=== PATIENT | female | born 1955 | race Caucasian/White ===

== ENCOUNTER → 2018-12-10 | Outpatient (CLI) | payer BC ==
--- NOTE | 2018-12-10 08:48 | Diagnostic Imaging Report ---
INDICATION: Epigastric pain. The liver is normal in size at 15.8 cm. No discrete liver mass is detected. The portal vein is patent and shows normal directional flow. The gallbladder is surgically absent. The extrahepatic bile duct is 8 mm. Visualized pancreas is unremarkable. Spleen is normal in size at 10.2 cm. Aorta is nonaneurysmal. IVC is patent. The kidneys demonstrate normal cortical thickness and echogenicity. No calculi or hydronephrosis is seen. There is no ascites. IMPRESSION: Status post cholecystectomy. No acute feature is detected. Dictated by: Dictated on workstation # [id number]
--- NOTE | 2018-12-13 10:29 | Diagnostic Imaging Report ---
INDICATION: Routine screening. COMPARISON: 12/05/2016. TECHNIQUE: 2D and 3D bilateral screening mammography was performed with CAD. FINDINGS: Both breasts remain heterogeneously dense, limiting the sensitivity of mammography. A cluster of microcalcifications in the upper and slightly outer right breast at posterior depth appears to be increased in number since the prior exam. There is a marker clip just medial and inferior to the cluster from prior biopsy. No mass is identified. Calcifications in the left breast are stable. The axillae are unremarkable. IMPRESSION: Increasing calcifications in the upper outer right breast at posterior depth. Additional views are recommended. ACR BI-RADS Category 0: Incomplete. (Needs additional imaging evaluation). Result letter will be mailed to the patient. Note: At least 10% of breast cancer is not imaged by mammography. Dictated by: Dictated on workstation # [id number]
== END ==
LOC: RAD 07:45
PROVIDERS: ATTEND Physician Assistant Medical
DX: Z12.31 Encounter for screening mammogram for malignant neoplasm of breast (principal); R92.1 Mammographic calcification found on diagnostic imaging of breast; R10.13 Epigastric pain; Z90.49 Acquired absence of other specified parts of digestive tract
CPT/HCPCS: 76700; 77067

== ENCOUNTER → 2019-03-31 | Outpatient (CLI) | payer BC ==
--- NOTE | 2019-03-31 14:19 | Diagnostic Imaging Report ---
Nneka Giron EXAMINATION: Unilateral right diagnostic mammogram on 03/31/2019. INDICATION: Right breast calcifications. Patient presents for additional views. Correlation is made with recent screening study from 12/10/2018. Unilateral right 2-D and 3-D diagnostic mammography was performed including magnification CC and ML views as well as conventional 90 degree lateral view. Right breast remains heterogeneously dense. Calcifications in the upper right breast posterior depth just lateral to previously noted biopsy clip do show some increase in number when compared with prior mammograms. These are indeterminate. There is some pleomorphism present. No mass is detected. IMPRESSION: BI-RADS 4 Overall increase in number of clustered microcalcifications in the upper and slightly outer right breast posterior depth. These are indeterminate. Tissue sampling is recommended. These would be amenable to stereotactic approach. After discussion with the patient, patient decided to not undergo biopsy at this time due to insurance reasons. Patient states that she will come back in 6 months for a six-month follow-up. ACR BI-RADS Category 4: Suspicious abnormality. Result letter will be mailed to the patient. Note: At least 10% of breast cancer is not imaged by mammography. Report was called to Alicia/correctional program officer Dr. Kat by abby at 2:00 p.m. Dictated by: Dictated on workstation # [id number]
== END ==
LOC: RAD 12:46
PROVIDERS: ATTEND Student in an Organized Health Care Education/Training Program
DX: R92.0 Mammographic microcalcification found on diagnostic imaging of breast (principal)

== ENCOUNTER → 2019-06-29 | Outpatient (CLI) | payer BC ==
[~2019-06-29] VITALS: Ht 170.2 cm; Wt 68.2 kg
[~2019-06-29] MED LIST: LIDOCAINE 1% INJ 20 ML 20 ML VIAL INJ ONE; LIDOCAINE 1% INJ 20 ML 20 ML VIAL ONE
--- NOTE | 2019-06-29 12:04 | Diagnostic Imaging Report ---
EXAMINATION: Stereotactic biopsy right breast. INDICATION: Abnormal mammogram. PERSONAL HISTORY: The diagnostic mammogram performed on 03/31/2019 noted an increase in the cluster of microcalcifications in the superior slightly outer aspect of the right breast at posterior depth. A stereotactic biopsy was recommended to exclude malignancy. TECHNIQUE: Following aseptic preparation of the skin and administration of local anesthesia, the area of concern was biopsied using a stereotactic device. Multiple samples were obtained. The specimen radiograph does show that several of the calcifications were included in the biopsy site. Subsequently, a stereotactic clip was inserted into the biopsy site. The post procedure images performed at a separate workstation show that the clip is in close proximity to the area of concern on the CC view. The tip does appear to be 1.5 cm cephalad to the biopsy site on the MLO view however. There are still a few calcifications present in this region. The patient tolerated the procedure well and was dismissed in good condition. IMPRESSION: There has been a successful stereotactic biopsy of the right breast. A final pathology report is pending. Dictated by: Dictated on workstation # [id number]
== END ==
LOC: RAD 09:51
PROVIDERS: ATTEND Student in an Organized Health Care Education/Training Program
DX: R92.0 Mammographic microcalcification found on diagnostic imaging of breast (principal)
CPT/HCPCS: 19081

== ENCOUNTER → 2019-10-11 | Outpatient (CLI) | payer BC ==
[~2019-10-11] VITALS: Ht 170 cm; Wt 65.0 kg
[~2019-10-11] MED LIST changes: +CATHETER FLUSH 10 ML SYR IV PRN; -LIDOCAINE 1% INJ 20 ML 20 ML VIAL INJ ONE; -LIDOCAINE 1% INJ 20 ML 20 ML VIAL ONE; +REGADENOSON 0.4 MG/5 ML SYR (LEXISCAN) IV ONE
--- NOTE | 2019-10-11 12:04 | STRESS TEST ---
DATE OF SERVICE: 10/11/2019 RESTING AND POST REGADENOSON TECHNETIUM-99M TETROFOSMIN SPECT CT IMAGING PRIMARY PHYSICIAN: Dr. Casillas. CLINICAL DIAGNOSIS: Chest discomfort. Baseline images were carried out after injection of 10.74 mCi of technetium-99m Tetrofosmin. This was followed by 0.4 mg Regadenoson and 33 mCi of technetium-99m Tetrofosmin for stress imaging. The electrocardiogram showed sinus rhythm at baseline. Intermittent left bundle branch block was seen, which appears to be rate related. The patient did not report any symptoms. Review of images at rest and following stress does not indicate any significant perfusion defects consistent with myocardial ischemia or infarction. Gated images show normal global left ventricular systolic function with normal regional wall motion. Left ventricular ejection fraction is calculated to be 70%. Left ventricular end diastolic volume is 50 mL. TID is absent (1.09). CONCLUSIONS: 1. No evidence of significant myocardial ischemia or infarction on this study. 2. Normal regional wall motion. 3. Normal global left ventricular systolic function with a calculated ejection fraction at 70%. 4. Rate-related left bundle branch block. Job ID: [id number] DocumentID: [id number] Dictated Date: 10/11/2019 11:15:14 Chucking And Boring Machine Operator Date: 10/11/2019 12:03:34 Dictated By: KERI CASILLAS MD, MA, FACP, FACC,
== END ==
LOC: CARD 08:25
PROVIDERS: ATTEND Internal Medicine Cardiovascular Disease
DX: I65.23 Occlusion and stenosis of bilateral carotid arteries (principal); R09.89 Other specified symptoms and signs involving the circulatory and respiratory systems; R53.83 Other fatigue
CPT/HCPCS: 78452; 93017; 93306; A9502

== ENCOUNTER → 2020-05-30 | Outpatient (CLI) | payer BC, MEDICARE ==
--- NOTE | 2020-05-31 12:59 | Diagnostic Imaging Report ---
INDICATION: Routine screening. Comparison is made prior mammogram from 12/10/2018 and 12/05/2016. 2-D and 3-D bilateral screening mammography was performed with CAD. Both breasts are heterogeneously dense, limiting the sensitivity of mammography. There are benign calcifications of both breast. Postbiopsy changes in the right breast are again noted. No mass or malignant appearing microcalcifications are seen. Axillae are unremarkable. IMPRESSION: BI-RADS Category 2 No mammographic features suspicious for malignancy are identified. ACR BI-RADS Category 2: Benign findings. Result letter will be mailed to the patient. Note: At least 10% of breast cancer is not imaged by mammography. Dictated by: Dictated on workstation # [id number]
== END ==
LOC: RAD 14:50
PROVIDERS: ATTEND Student in an Organized Health Care Education/Training Program
DX: Z12.31 Encounter for screening mammogram for malignant neoplasm of breast (principal)
CPT/HCPCS: 77063; 77067

== ENCOUNTER 2020-12-13 05:29 | Outpatient (RCR) | payer MEDICARE ==
[~2020-12-13] VITALS: Ht 170.2 cm; Wt 71.0 kg
[~2020-12-13 05:29] MED LIST changes: +ACET-93 PO; +ASPI-999 PO; -CATHETER FLUSH 10 ML SYR IV PRN; +CETI10TA49 PO; +DICL75TA2 PO; +DIPH25CA79 PO; +LEVO75CA5 PO; +MENT118G TP; +MONT10TA32 PO; +OMEP20CA18 PO; -REGADENOSON 0.4 MG/5 ML SYR (LEXISCAN) IV ONE; +TRIA10.8 NS
== END 2020-12-13 10:48 | disposition home or self-care (01) ==
LOC: PREOP 05:29
PROVIDERS: ATTEND Surgery
DX: Z01.812 Encounter for preprocedural laboratory examination (principal); Z12.11 Encounter for screening for malignant neoplasm of colon; K44.9 Diaphragmatic hernia without obstruction or gangrene; R12 Heartburn; Z20.822 Contact with and (suspected) exposure to COVID-19
CPT/HCPCS: 87635

== ENCOUNTER → 2020-12-17 | Day surgery (SDC) | payer MEDICARE, OTHER ==
[2020-12-17] VITALS (8 sets, daily range): BP systolic 130–146; BP diastolic 63–78
[~2020-12-17] VITALS: Ht 170.2 cm; Wt 71.0 kg
[~2020-12-17] MED LIST changes: +HURRICAINE EXT TUBE (BENZOCAINE) XX PRN; +LACTATED RINGERS 1,000 ML IV ONE; +LACTATED RINGERS 1,000 ML IV STA; +MIDAZOLAM 2 MG/2 ML (VERSED) VIAL ONE; +PROPOFOL INJECTION 0 ML IV ONE; +PROPOFOL INJECTION 50 ML IV ONE
--- OUTSIDE RECORDS SUMMARY | 2020-12-17 07:33 | XMS REPORT | CCD ---
Author Author Slime Hayes Organization [facility] Address [address] [place] [address] Phone Care Team Providers Care Maker Up Folding Name Role Phone PP Unavailable CCM Unavailable Summary Purpose Interface Exchange Insurance Providers Payer name Policy type / Coverage type Covered constitution party ID Effective Begin Date Effective End Date WPS MEDICARE PART B [place] Medicare Part B [id number] Unknown [employer] Medicare Part B [id number] 2021 [id number] Unknown Family history Brother Diagnosis Age At Onset Diabetes mellitus Type 2 Unknown Cardiovascular disease Unknown Cancer Unknown Sister Diagnosis Age At Onset Diabetes mellitus Type 2 Unknown Cardiovascular disease Unknown Father Diagnosis Age At Onset Cancer Unknown Cardiovascular disease Unknown Mother Diagnosis Age At Onset Breast cancer Unknown Cardiovascular disease Unknown Social History Social History Element Codes Description Effective Dates Marital status Unknown 11/01/[address]: 200799792 Never smoker 11/01/2020 Frequency of drinks SNOMED CT: 018928545 Drinks rarely 021 Allergies, Adverse Reactions, Alerts Substance Reaction Codes Entered Date Inactivated Date Status * NO KNOWN DRUG ALLERGIES Unknown 11/01/2020 No Inactiv e Date Active _ Unknown 11/01/2020 No Inactive Date Active Problems Condition Codes Effective Dates Condition Status Depression ICD-10: F32.9 ICD-9: 311 11/14/2020 Active Dyspnea ICD-10: R06.00 ICD-9: 786.09 11/14/2020 Active Encounter for general adult medical examination withou t abnormal findings ICD- 10: Z00.00 ICD-9: V70.0 11/14/2020 Active Gastroesophageal reflux disease, unspecified whether e sophagitis present ICD-10: K21.9 ICD-9: 530.81 11/01/2020 Active Hypothyroidism, unspecified type ICD-10: E03.9 ICD-9: 244.9 11/01/2020 Active Acute upper respiratory infection, unspecified ICD-10: J06.9 ICD-9: 465.9 11/07/2020 Active Lab test negative for COVID-19 virus ICD-10: Z20.822 ICD-9: V01.79 11/07/2020 Active Arthritis of both hands ICD-10: M19.041 ICD-9: 716.94 11/01/2020 Active Encounter to establish care with new doctor ICD-10: Z7 6.89 ICD-9: V65.8 11/01/2020 Active Primary osteoarthritis, left hand ICD-10: M19.042 11/01/2020 Active Seasonal allergic rhinitis, unspecified trigger ICD-10 : J30.2 ICD-9: 477.9 11/01/2020 Active Medications Medication Codes Instructions Start Date Stop Date Status Fill Instructions levothyroxine 75 mcg tablet RxNorm: 889162 Take 1 Tablet(s) Oral QA M 11/14/2020 02/11/2021 Active Effexor XR 75 mg capsule,extended release RxNorm: 185489 Take 1 Capsule(s) Oral QAM 11/14/2020 01/12/2021 Active levothyroxine 100 mcg tablet RxNorm: 721760 Take 1 Tablet(s) Oral Q D 11/14/2020 11/14/2020 Inactive promethazine-DM 6.25 mg-15 mg/5 mL oral syrup RxNorm: 418909 Take 5 Milliliter(s) Oral Q4H as needed, not to exceed 30 mL in 24 hours as needed for cough 11/07/2020 11/11/2020 Inactive prednisone 20 mg tablet RxNorm: 179336 Take 2 Tablet(s) Oral QD 11/11/2020 Inactive omeprazole 20 mg tablet,delayed release RxNorm: 278049 1 Tablet (s) Oral QD 11/01/2020 01/29/2021 Active Singulair 10 mg tablet RxNorm: 202479 1 Tablet(s) Oral QD 11/01/2020 01/29/2021 Active aspirin 81 mg tablet,delayed release RxNorm: 191033 1 Tablet(s) Oral QD 11/01/2020 No Stop Date Active Benadryl 25 mg capsule RxNorm: 4100205 1 Capsule(s) Oral two jessie es a day 11/01/2020 No Stop Date Active acetaminophen 500 mg capsule RxNorm: 487215 2 Capsule(s) Oral QD No Stop Date Active Singulair 10 mg tablet RxNorm: 693577 1 Tablet(s) Oral QD 11/01/2020 10/31/2020 Inactive diclofenac sodium 75 mg tablet,delayed release RxNorm: 79370 6 Take 1 Tablet(s) Oral two times a day 11/01/2020 11/13/2020 Inactive omeprazole 20 mg tablet,delayed release RxNorm: 808202 1 Tablet (s) Oral QD 11/01/2020 10/31/2020 Inactive Nasacort nasal RxNorm: 054747 nasal 11/01/2020 Active levothyroxine 100 mcg capsule RxNorm: 295477 oral 11/14/2020 Inactive Medication Administered No Medication Administered data Immunizations No Immunization data Results No Results data Procedures Procedure Codes Date PPPS, subseq visit CPT-4: G0439 11/14/2020 SARSCOV & INF VIR A&B AG IA CPT-4: 70013 11/07/2020 Vital Signs Date Vital 11/14/2020 Blood Pressure 1: 124/78 Code: 8480-6 BMI: 23.5 Code: 74671-7 Heart Rate 1: 80 bpm Height: 5'7" Code: 8302-2 Respiratory Rate: 20 bpm SpO2: 97% Temperature: 36.7 (C) / 98.1 (F) Weight: 150 lbs Code: 07397-5 11/07/2020 Heart Rate 1: 78 bpm Respiratory Rate: 18 bpm SpO2: 99 % Temperature: 36.6 (C) / 97.8 (F) 11/01/2020 Blood Pressure 1: 134/72 Code: 8480-6 BMI: 24.1 Code: 52099-8 Heart Rate 1: 69 bpm Height: 5'7" Code: 8302-2 Respiratory Rate: 16 bpm SpO2: 97% Temperature: 37.0 (C) / 98.6 (F) Weight: 154 lbs Code: 45890-4 Functional Status No Functional Status data Reason For Visit Reason For Visit Effective Dates Notes well woman exam (65+ years) 11/14/2020 Medicare Wel lness diarrhea 11/07/2020 ~generic 11/01/2020 [facility] Encounters Encounter Performer Location Codes Date (24277) OFFICE/OUTPATIENT VISIT EST Diagnosis: Lab test negative for COVID-19 virus[ICD10: Z20.822] Diagnosis: Acute upper respiratory infection, unspecified[ICD10: J06.9] Barbara Hayes [facility] CPT-4: 93254 11/07/2020 (10792) OFFICE/OUTPATIENT VISIT NEW Diagnosis: Gastroesophageal reflux disease, unspecified whether esophagitis present[ICD10: K21.9] Diagnosis: Seasonal allergic rhinitis, unspecified trigger[ICD10: J30.2] Diagnosis: Primary osteoarthritis, left hand[ICD10: M19.042] Diagnosis: Arthritis of both hands[ICD10: M19.041] Diagnosis: Hypothyroidism, unspecified type[ICD10: E03.9] Diagnosis: Encounter to establish care with new doctor[ICD10: Z76.89] Barbara Hayes [facility] CPT-4: 18532 11/01/2020 Plan of Care Planned Activity Notes Codes Status Date Visit Diagnosis Plan: Hypothyroidism, unspecified type Discussion: Decrease levothyroxine dose to 75mcg po daily and repeat TSH and free T4 in 2mos Discussed proper administration of levothyroxine--taking first thing in morning on a empty stomach with large glass of water and no other meds or nothing to eat or drink for at least 1 hour ICD-9 : 244.9 ICD-10 : E03.9 11/14/2020 Visit Diagnosis Plan: Dyspnea Discussion: Discussed PF T Had cardiac workup last year Will proceed with scopes first as above and discuss the PFT at fw in 2mos ICD-9 : 786.09 ICD-10 : R06.00 11/14/2020 Visit Diagnosis Plan: Encounter for gene [facility] adult medical examination without abnormal findings Discussion: Mediterranean diet Combinati on of cardio and weight bearing exercise Lab discussed Had Mammogram Update Colonoscopy Refuses flu, pneumonia and COVID vaccines ICD-9 : V70.0 ICD-10 : Z00.00 11/14/2020 Visit Diagnosis Plan: Depression Discussion: Resume ef fexor XR 75mg po daily Fwup 2mos ICD-9 : 311 ICD-10 : F32.9 11/14/2020 Visit Diagnosis Plan: Gastroesophageal r eflux disease, unspecified whether esophagitis present Discussion: Continue omeprazole Update E GD ICD-9 : 530.81 ICD-10 : K21.9 11/14/2020 Appointment: Gustavo [facility] [phone] [facility] patient called to change her appt but wh marcela i informed he it was with doctor she decided to keep it Annual Well Visit 11/14/2020 Care Plan: Referral Order SNOMED-CT : 30 [id number] Pending 11/14/2020 Visit Diagnosis Plan: Acute upper respiratory infectio n, unspecified Discussion: Promethazine-DM for cough, will give prednisone for inflammation/drainage. Drink plenty of water. F/U for any worsening of symptoms or concerns. ICD-9 : 465.9 ICD-10 : J06.9 11/07/2020 Visit Diagnosis Plan: Lab test negative for COVID-19 v irus Discussion: covid negative ICD-9 : V01.79 ICD-10 : Z20.822 11/07/2020 [facility]ment[facility] [phone] [facility] [facility] 11/07/2020 Patient Education: Patient Medication Summary Completed 11/07/2020 Patient Education: promethazine-DM- Opt[employer] Coupon [id number] https://www.[employer].com/samplemd/resources/getResource/61/20ve1a01-92o4-8cl5-p4 Completed 11/07/2020 Patient Education: prednisone- OptimizeRX Coupon [phone] https://www.[employer].com/samplemd/resources/getResource/61/09ep93u9-0v34-49z3-6j Completed 11/07/2020 Visit Diagnosis Plan: Encounter to establish care with new doctor Discussion: Will make F/U for fasting labs and annual. ICD-9 : V65.8 ICD-10 : Z76.89 11/01/2020 Visit Diagnosis Plan: Hypothyroidism, unspecified type Discussion: Will update lab ICD-9 : 244.9 ICD-10 : E03.9 11/01/2020 Visit Diagnosis Plan: Gastroesophageal r eflux disease, unspecified whether esophagitis present Discussion: stable on omeprazole, refill ed ICD-9 : 530.81 ICD-10 : K21.9 11/01/2020 Visit Diagnosis Plan: Seasonal allergic rhinitis, unsp ecified trigger Discussion: Singular refilled ICD-9 : 477.9 ICD-10 : J30.2 11/01/2020 Visit Diagnosis Plan: Arthritis of both hands Discussi on: Start diclofenac, hand exercises/stretches ICD-9 : 716.94 ICD-10 : M19.041 11/01/2020 Appointment: Barbara Hayes WPtel: [phone] [facility] NEW PATIENT 11/01/2020 Patient Education: Patient Medication Summary Completed 11/01/2020 Patient Education: Singulair- OptimizeRX Coupon [phone] https://www.[employer]/samplemd/resources/getResource/61/57r79s19-savn-6t49-g5 Completed 11/01/2020 Patient Education: diclofenac sodium- OptimizeRX Coupo n [id number] https://www.[employer]/samplemd/resources/getResource/61/1875364t-v123-73l2-88 Completed 11/01/2020 Referral: David Radford WPtel: [address] [place], [place] [email or web address] Referral Appointment Requested Instructions No Instructions Medical Equipment No Medical Equipment data Health Concerns Section Health Concerns data not found Goals Section Goals data not found Interventions Section Interventions data not found Health Status Evaluations/Outcomes Section Health Status Evaluations/Outcomes data not found Advance Directives No Advance Directive data
--- OUTSIDE RECORDS SUMMARY | 2020-12-17 07:33 | XMS REPORT | CCD ---
Author Author Slime Hayes Organization [facility] Address [address] [place] [address] Phone Care Team Providers Care Golf Cart Maker Name Role Phone PP Unavailable CCM Unavailable Summary Purpose Interface Exchange Insurance Providers Payer name Policy type / Coverage type Covered alliance party ID Effective Begin Date Effective End Date WPS MEDICARE PART B [place] Medicare Part B [id number] 2020 Unknown Old [employer] Medicare Part B [id number] 2021 [id number] Unknown Family history Brother Diagnosis [...] status Unknown 11/01/[address]: 492989025 Never smoker 11/01/2020 Frequency of drinks SNOMED CT: 494850648 Drinks rarely 021 Allergies, Adverse Reactions, Alerts [...] Fill Instructions levothyroxine 75 mcg tablet RxNorm: 604757 Take 1 Tablet(s) Oral QA M 11/14/2020 02/11/2021 Active levothyroxine 100 mcg tablet RxNorm: 118045 Take 1 Tablet(s) Oral Q D 11/14/2020 11/14/2020 Inactive Effexor XR 75 mg capsule,extended release RxNorm: 744929 Take 1 Capsule(s) Oral QAM 11/14/2020 01/12/2021 Active promethazine-DM 6.25 mg-15 mg/5 mL oral syrup RxNorm: 711338 Take 5 Milliliter(s) Oral Q4H as needed, not to exceed 30 mL in 24 hours as needed for cough 11/07/2020 11/11/2020 Inactive prednisone 20 mg tablet RxNorm: 031923 Take 2 Tablet(s) Oral QD 11/11/2020 Inactive omeprazole 20 mg tablet,delayed release RxNorm: 062857 1 Tablet (s) Oral QD 11/01/2020 01/29/2021 Active Singulair 10 mg tablet RxNorm: 946666 1 Tablet(s) Oral QD 11/01/2020 01/29/2021 Active aspirin 81 mg tablet,delayed release RxNorm: 464620 1 Tablet(s) Oral QD 11/01/2020 No Stop Date Active Benadryl 25 mg capsule RxNorm: 2417022 1 Capsule(s) Oral two jessie es a day 11/01/2020 No Stop Date Active acetaminophen 500 mg capsule RxNorm: 285964 2 Capsule(s) Oral QD No Stop Date Active Singulair 10 mg tablet RxNorm: 420810 1 Tablet(s) Oral QD 11/01/2020 10/31/2020 Inactive diclofenac sodium 75 mg tablet,delayed release RxNorm: 12628 6 Take 1 Tablet(s) Oral two times a day 11/01/2020 11/13/2020 Inactive omeprazole 20 mg tablet,delayed release RxNorm: 754969 1 Tablet (s) Oral QD 11/01/2020 10/31/2020 Inactive Nasacort nasal RxNorm: 660342 nasal 11/01/2020 Active levothyroxine 100 mcg capsule RxNorm: 845476 oral 11/14/2020 Inactive Medication Administered No Medication Administered data Immunizations No Immunization data Results No Results data Procedures Procedure Codes Date PPPS, subseq visit CPT-4: G0439 11/14/2020 SARSCOV & INF VIR A&B AG IA CPT-4: 64135 11/07/2020 Vital Signs Date Vital 11/14/2020 Blood Pressure 1: 124/78 Code: 8480-6 BMI: 23.5 Code: 06315-5 Heart Rate 1: 80 bpm Height: 5'7" Code: 8302-2 Respiratory Rate: 20 bpm SpO2: 97% Temperature: 36.7 (C) / 98.1 (F) Weight: 150 lbs Code: 36190-7 11/07/2020 Heart Rate 1: 78 bpm Respiratory Rate: 18 bpm SpO2: 99 % Temperature: 36.6 (C) / 97.8 (F) 11/01/2020 Blood Pressure 1: 134/72 Code: 8480-6 BMI: 24.1 Code: 08497-0 Heart Rate 1: 69 bpm Height: 5'7" Code: 8302-2 Respiratory Rate: 16 bpm SpO2: 97% Temperature: 37.0 (C) / 98.6 (F) Weight: 154 lbs Code: 45279-6 Functional Status No Functional Status data Reason For Visit Reason For Visit Effective Dates Notes well woman exam (65+ years) 11/14/2020 Medicare Wel lness diarrhea 11/07/2020 ~generic 11/01/2020 new patient yudi [facility] Encounters Encounter Performer Location Codes Date () OFFICE/OUTPATIENT VISIT EST Diagnosis: Lab test negative for COVID-19 virus[ICD10: Z20.822] Diagnosis: Acute upper respiratory infection, unspecified[ICD10: J06.9] Barbara Hayes [facility] CPT-4: 76789 11/07/2020 (36501) OFFICE/OUTPATIENT VISIT NEW Diagnosis: Gastroesophageal reflux disease, unspecified whether esophagitis present[ICD10: K21.9] Diagnosis: Seasonal allergic rhinitis, unspecified trigger[ICD10: J30.2] Diagnosis: Primary osteoarthritis, left hand[ICD10: M19.042] Diagnosis: Arthritis of both hands[ICD10: M19.041] Diagnosis: Hypothyroidism, unspecified type[ICD10: E03.9] Diagnosis: Encounter to establish care with new doctor[ICD10: Z76.89] Barbara Hayes [facility] [employer] CPT-4: 74549 11/01/2020 Plan of Care Planned Activity Notes [...] 11/14/2020 Visit Diagnosis Plan: Encounter for gene ral adult medical examination without abnormal findings Discussion: [...] ICD-9 : 530.81 ICD-10 : K21.9 11/14/2020 Care Plan: Referral Order SNOMED-CT : 30 [id number] Pending 11/14/2020 Visit Diagnosis Plan: Acute upper respiratory infectio n, unspecified Discussion: Promethazine-DM for cough, will give prednisone for inflammation/drainage. Drink plenty of water. F/U for any worsening of symptoms or concerns. ICD-9 : 465.9 ICD-10 : J06.9 11/07/2020 Visit Diagnosis Plan: Lab test negative for COVID-19 v irus Discussion: covid negative ICD-9 : V01.79 ICD-10 : Z20.822 11/07/2020 Appointment: Barbara [facility] [phone] [facility] [facility] 11/07/2020 Patient Education: Patient Medication Summary Completed 11/07/2020 Patient Education: promethazine-DM- [employer] Coupon [id number] https://www.[employer]/samplemd/resources/getResource/61/57xi4h85-94q8-4ze0-r8 Completed 11/07/2020 Patient Education: prednisone- Opt[employer]RX Coupon [id number] https://www.[employer]/samplemd/resources/getResource/61/66mb41d8-4f85-22r4-5e Completed 11/07/2020 Visit Diagnosis Plan: Encounter to [...] : 716.94 ICD-10 : M19.041 11/01/2020 Appointment: SowmyakelBarbara weber WPtel: [phone] NEW PATIENT 11/01/2020 Patient Education: Patient Medication Summary Completed 11/01/2020 Patient Education: Singulair- OptimizeRX Coupon [phone] https://www.[employer]/sampleBuddyBounce/resources/getResource/61/70o54b59-gbua-3z15-r5 Completed 11/01/2020 Patient Education: diclofenac sodium- Opt[employer]RX Coupo n [id number] https://www.[employer]/samplemd/resources/getResource/61/7149297m-z053-90w4-94 Completed 11/01/2020 Referral: David Radford WPtel: [address] [place], [place] [address] Referral Appointment Requested Instructions No Instructions Medical Equipment No Medical Equipment data Health Concerns Section Health Concerns data not found Goals Section Goals data not found Interventions Section Interventions data not found Health Status Evaluations/Outcomes Section Health Status Evaluations/Outcomes data not found Advance Directives No Advance Directive data
--- OUTSIDE RECORDS SUMMARY | 2020-12-17 07:33 | XMS REPORT | CCD ---
Author Author Slime Hayes Organization [facility] Address [address] [place] [address] Phone Care Team Providers Care Building Surveyor Name Role Phone PP Unavailable CCM Unavailable Summary Purpose Interface Exchange Insurance Providers Payer name Policy type / Coverage type Covered green party ID Effective Begin Date Effective End Date WPS MEDIC[place] Medicare Part B [id number] 2020 Unknown Old [employer] Medicare Part B [id number] 2021 [id number] Unknown Family history Brother Diagnosis [...] status Unknown 11/01/[address]: 004278841 Never smoker 11/01/2020 Frequency of drinks SNOMED CT: 717949152 Drinks rarely 021 Allergies, Adverse Reactions, Alerts Substance Reaction Codes Entered Date Inactivated Date Status * NO KNOWN DRUG ALLERGIES Unknown 11/01/2020 No Inactiv e Date Active _ Unknown 11/01/2020 No Inactive Date Active Problems Condition Codes Effective Dates Condition Status Acute upper respiratory infection, unspecified ICD-10: J06.9 ICD-9: 465.9 11/07/2020 Active Lab test negative for COVID-19 virus ICD-10: Z20.822 ICD-9: V01.79 11/07/2020 Active Arthritis of both hands ICD-10: M19.041 ICD-9: 716.94 11/01/2020 Active Encounter to establish care with new doctor ICD-10: Z7 6.89 ICD-9: V65.8 11/01/2020 Active Gastroesophageal reflux disease, unspecified whether e sophagitis present ICD-10: K21.9 ICD-9: 530.81 11/01/2020 Active Hypothyroidism, unspecified type ICD-10: E03.9 ICD-9: 244.9 11/01/2020 Active Primary osteoarthritis, left hand ICD-10: M19.042 11/01/2020 Active Seasonal allergic rhinitis, unspecified trigger ICD-10 : J30.2 ICD-9: 477.9 11/01/2020 Active Medications Medication Codes Instructions Start Date Stop Date Status Fill Instructions promethazine-DM 6.25 mg-15 mg/5 mL oral syrup RxNorm: 945026 Take 5 Milliliter(s) Oral Q4H as needed, not to exceed 30 mL in 24 hours as needed for cough 11/07/2020 11/11/2020 Active prednisone 20 mg tablet RxNorm: 628032 Take 2 Tablet(s) Oral QD 11/11/2020 Active omeprazole 20 mg tablet,delayed release RxNorm: 142212 1 Tablet (s) Oral QD 11/01/2020 01/29/2021 Active diclofenac sodium 75 mg tablet,delayed release RxNorm: 54017 6 Take 1 Tablet(s) Oral two times a day 11/01/2020 01/29/2021 Active Singulair 10 mg tablet RxNorm: 429966 1 Tablet(s) Oral QD 11/01/2020 01/29/2021 Active aspirin 81 mg tablet,delayed release RxNorm: 752760 1 Tablet(s) Oral QD 11/01/2020 No Stop Date Active Benadryl 25 mg capsule RxNorm: 2620804 1 Capsule(s) Oral two jessie es a day 11/01/2020 No Stop Date Active acetaminophen 500 mg capsule RxNorm: 274767 2 Capsule(s) Oral QD No Stop Date Active Singulair 10 mg tablet RxNorm: 910128 1 Tablet(s) Oral QD 11/01/2020 10/31/2020 Inactive omeprazole 20 mg tablet,delayed release RxNorm: 382521 1 Tablet (s) Oral QD 11/01/2020 10/31/2020 Inactive levothyroxine 100 mcg capsule RxNorm: 106880 oral 11/01/2020 Active Nasacort nasal RxNorm: 073691 nasal 11/01/2020 Active Medication Administered No Medication Administered data Immunizations No Immunization data Results No Results data Procedures Procedure Codes Date SARSCOV & INF VIR A&B AG IA CPT-4: 38474 11/07/2020 Vital Signs Date Vital 11/07/2020 Heart Rate 1: 78 bpm Respiratory Rate: 18 bpm SpO2: 99 % Temperature: 36.6 (C) / 97.8 (F) 11/01/2020 Blood Pressure 1: 134/72 Code: 8480-6 BMI: 24.1 Code: 12445-7 Heart Rate 1: 69 bpm Height: 5'7" Code: 8302-2 Respiratory Rate: 16 bpm SpO2: 97% Temperature: 37.0 (C) / 98.6 (F) Weight: 154 lbs Code: 83118-7 Functional Status No Functional Status data Reason For Visit Reason For Visit Effective Dates Notes diarrhea 11/07/2020 ~generic 11/01/[address] [facility] Encounters Encounter Performer Location Codes Date () OFFICE/OUTPATIENT VISIT EST Diagnosis: Lab test negative for COVID-19 virus[ICD10: Z20.822] Diagnosis: Acute upper respiratory infection, unspecified[ICD10: J06.9] Barbara CHEN [employer] CPT-4: 49409 11/07/2020 ([id number]) OFFICE/OUTPATIENT VISIT NEW Diagnosis: Gastroesophageal reflux disease, unspecified whether esophagitis present[ICD10: K21.9] Diagnosis: Seasonal allergic rhinitis, unspecified trigger[ICD10: J30.2] Diagnosis: Primary osteoarthritis, left hand[ICD10: M19.042] Diagnosis: Arthritis of both hands[ICD10: M19.041] Diagnosis: Hypothyroidism, unspecified type[ICD10: E03.9] Diagnosis: Encounter to establish care with new doctor[ICD10: Z76.89] Barbara BESS[employer] CPT-4: 08620 11/01/2020 Plan of Care Planned Activity Notes Codes Status Date Visit Diagnosis Plan: Acute upper respiratory infectio n, unspecified Discussion: Promethazine-DM for cough, will give prednisone for inflammation/drainage. Drink plenty of water. F/U for any worsening of symptoms or concerns. ICD-9 : 465.9 ICD-10 : J06.9 11/07/2020 Visit Diagnosis Plan: Lab test negative for COVID-19 v irus Discussion: covid negative ICD-9 : V01.79 ICD-10 : Z20.822 11/07/2020 Patient Education: Patient Medication Summary Completed 11/07/2020 Patient Education: promethazine-DM- OptimizeRX Coupon [id number] https://www.StockUp/sampleDigitalAdvisor/resources/getResource/61/97dd2a88-04d6-1zi0-q1 Completed 11/07/2020 Patient Education: prednisone- OptimizeRX Coupon [id number] https://www.StockUp/[employer]/resources/getResource/61/23fp39k0-7q14-26p8-1y Completed 11/07/2020 Visit Diagnosis Plan: Encounter to [...] M19.041 11/01/2020 Appointment: Barbara Hayes [facility]Ptel[facility] [phone] [facility] [facility] 11/01/2020 Patient Education: Patient Medication Summary Completed 11/01/2020 Patient Education: Singulair- OptimizeRX Coupon [id number] https://www.StockUp/sampleDigitalAdvisor/resources/getResource/61/77t84s18-zsfl-5q81-f9 Completed 11/01/2020 Patient Education: diclofenac sodium- OptimizeRX Ricardo n [id number] https://www.[employer].com/samplemd/resources/getResource/61/4922474u-r925-36t7-80 Completed 11/01/2020 Instructions No Instructions Medical Equipment No Medical Equipment data Health Concerns Section Health Concerns data not found Goals Section Goals data not found Interventions Section Interventions data not found Health Status Evaluations/Outcomes Section Health Status Evaluations/Outcomes data not found Advance Directives No Advance Directive data
--- OUTSIDE RECORDS SUMMARY | 2020-12-17 07:33 | XMS REPORT | CCD ---
Author Author Slime Hayes Organization [facility] SalgadoCh[facility] Address [address] [place] [address] Phone Care Team Providers Care Breed To Wean Production Technician Name Role Phone PP Unavailable CCM Unavailable Summary Purpose Interface Exchange Insurance Providers Payer name Policy type / Coverage type Covered constitution party ID Effective Begin Date Effective End Date WPS MEDICARE [place] B [place] Medicare Part B [id number] 2020 Unknown Old [employer] Medicare Part B [id number] 2021 [id number] Unknown Family history Brother Diagnosis [...] status Unknown 11/01/[address]: 268281583 Never smoker 11/01/2020 Frequency of drinks SNOMED CT: 606736967 Drinks rarely 021 Allergies, Adverse Reactions, Alerts [...] Fill Instructions levothyroxine 75 mcg tablet RxNorm: 927111 Take 1 Tablet(s) Oral QA M 11/14/2020 02/11/2021 Active levothyroxine 100 mcg tablet RxNorm: 618640 Take 1 Tablet(s) Oral Q D 11/14/2020 11/14/2020 Inactive Effexor XR 75 mg capsule,extended release RxNorm: 224505 Take 1 Capsule(s) Oral QAM 11/14/2020 01/12/2021 Active promethazine-DM 6.25 mg-15 mg/5 mL oral syrup RxNorm: 451392 Take 5 Milliliter(s) Oral Q4H as needed, not to exceed 30 mL in 24 hours as needed for cough 11/07/2020 11/11/2020 Inactive prednisone 20 mg tablet RxNorm: 578958 Take 2 Tablet(s) Oral QD 11/11/2020 Inactive omeprazole 20 mg tablet,delayed release RxNorm: 591245 1 Tablet (s) Oral QD 11/01/2020 01/29/2021 Active Singulair 10 mg tablet RxNorm: 866839 1 Tablet(s) Oral QD 11/01/2020 01/29/2021 Active aspirin 81 mg tablet,delayed release RxNorm: 067744 1 Tablet(s) Oral QD 11/01/2020 No Stop Date Active Benadryl 25 mg capsule RxNorm: 3044773 1 Capsule(s) Oral two jessie es a day 11/01/2020 No Stop Date Active acetaminophen 500 mg capsule RxNorm: 144477 2 Capsule(s) Oral QD No Stop Date Active Singulair 10 mg tablet RxNorm: 598423 1 Tablet(s) Oral QD 11/01/2020 10/31/2020 Inactive diclofenac sodium 75 mg tablet,delayed release RxNorm: 85524 6 Take 1 Tablet(s) Oral two times a day 11/01/2020 11/13/2020 Inactive omeprazole 20 mg tablet,delayed release RxNorm: 457939 1 Tablet (s) Oral QD 11/01/2020 10/31/2020 Inactive Nasacort nasal RxNorm: 496161 nasal 11/01/2020 Active levothyroxine 100 mcg capsule RxNorm: 228562 oral 11/14/2020 Inactive Medication Administered No Medication Administered data Immunizations No Immunization data Results No Results data Procedures Procedure Codes Date PPPS, subseq visit CPT-4: G0439 11/14/2020 SARSCOV & INF VIR A&B AG IA CPT-4: 55582 11/07/2020 Vital Signs Date Vital 11/14/2020 Blood Pressure 1: 124/78 Code: 8480-6 BMI: 23.5 Code: 85805-1 Heart Rate 1: 80 bpm Height: 5'7" Code: 8302-2 Respiratory Rate: 20 bpm SpO2: 97% Temperature: 36.7 (C) / 98.1 (F) Weight: 150 lbs Code: 99269-1 11/07/2020 Heart Rate 1: 78 bpm Respiratory Rate: 18 bpm SpO2: 99 % Temperature: 36.6 (C) / 97.8 (F) 11/01/2020 Blood Pressure 1: 134/72 Code: 8480-6 BMI: 24.1 Code: 71832-2 Heart Rate 1: 69 bpm Height: 5'7" Code: 8302-2 Respiratory Rate: 16 bpm SpO2: 97% Temperature: 37.0 (C) / 98.6 (F) Weight: 154 lbs Code: 79208-0 Functional Status No Functional Status data Reason For Visit Reason For Visit Effective Dates Notes well woman exam (65+ years) 11/14/2020 Medicare Wel lness diarrhea 11/07/2020 ~generic 11/01/[address] [facility] Encounters Encounter Performer Location Codes Date () OFFICE/OUTPATIENT VISIT EST Diagnosis: Lab test negative for COVID-19 virus[ICD10: Z20.822] Diagnosis: Acute upper respiratory infection, unspecified[ICD10: J06.9] Barbara Hayes [employer] CPT-4: 49140 11/07/2020 (15827) OFFICE/OUTPATIENT VISIT NEW Diagnosis: Gastroesophageal reflux disease, unspecified whether esophagitis present[ICD10: K21.9] Diagnosis: Seasonal allergic rhinitis, unspecified trigger[ICD10: J30.2] Diagnosis: Primary osteoarthritis, left hand[ICD10: M19.042] Diagnosis: Arthritis of both hands[ICD10: M19.041] Diagnosis: Hypothyroidism, unspecified type[ICD10: E03.9] Diagnosis: Encounter to establish care with new doctor[ICD10: Z76.89] Barbara Hayes [employer] CPT-4: 01508 11/01/2020 Plan of Care Planned Activity Notes [...] Care Plan: Referral Order SNOMED-CT : 30 4200200 Pending 11/14/2020 Visit Diagnosis Plan: Acute upper [...] 11/07/2020 Appointment: Barbara Hayes [facility]Ptel[facility] [phone] [facility] [facility] 11/07/2020 Patient Education: Patient Medication Summary Completed 11/07/2020 Patient Education: promethazine-DM- OptimizeRX Coupon [id number] https://www.[employer]/samplemd/resources/getResource/61/11hu1v56-07i5-6xa7-b7 Completed 11/07/2020 Patient Education: prednisone- OptimizeRX Coupon [phone] https://www.[employer]/samplemd/resources/getResource/61/09bl44p2-0w15-48v0-6m Completed 11/07/2020 Visit Diagnosis Plan: Encounter to [...] M19.041 11/01/2020 Appointment: SowmyakelBarbara weber WPtel: [phone] NEW PATIENT 11/01/2020 Patient Education: Patient Medication Summary Completed 11/01/2020 Patient Education: Singulair- OptimizeRX Coupon [phone] https://www.[employer]/sampleBroadview Networks/resources/getResource/61/51f95r19-wkah-2u62-j7 Completed 11/01/2020 Patient Education: diclofenac sodium- OptimizeRX Coupo n [id number] https://www.[employer]/samplemd/resources/getResource/61/2243105l-x386-41c6-05 Completed 11/01/2020 Referral: David Radford WPtel: [address] [place], [place] [address] Referral Appointment Requested Instructions No Instructions Medical Equipment No Medical Equipment data Health Concerns Section Health Concerns data not found Goals Section Goals data not found Interventions Section Interventions data not found Health Status Evaluations/Outcomes Section Health Status Evaluations/Outcomes data not found Advance Directives No Advance Directive data
--- OUTSIDE RECORDS SUMMARY | 2020-12-17 07:33 | XMS REPORT | CCD ---
Author Author Slime Hayes Organization [facility] SalgadoCh[facility] Address [address] [place] [address] Phone Care Team Providers Care Inspector Quality Assurance Name Role Phone PP Unavailable CCM Unavailable Summary Purpose Interface Exchange Insurance Providers Payer name Policy type / Coverage type Covered alliance party ID Effective Begin Date Effective End Date WPS MEDICARE PART B [place] Medicare Part B [id number] Unknown Old [employer] Medicare Part B [id number] 2021 [id number] Unknown Family history Brother Diagnosis [...] status Unknown 11/01/[address]: 522941657 Never smoker 11/01/2020 Frequency of drinks SNOMED CT: 246590876 Drinks rarely 021 Allergies, Adverse Reactions, Alerts [...] Fill Instructions levothyroxine 75 mcg tablet RxNorm: 413664 Take 1 Tablet(s) Oral QA M 11/14/2020 02/11/2021 Active Effexor XR 75 mg capsule,extended release RxNorm: 753587 Take 1 Capsule(s) Oral QAM 11/14/2020 01/12/2021 Active levothyroxine 100 mcg tablet RxNorm: 491863 Take 1 Tablet(s) Oral Q D 11/14/2020 11/14/2020 Inactive promethazine-DM 6.25 mg-15 mg/5 mL oral syrup RxNorm: 472189 Take 5 Milliliter(s) Oral Q4H as needed, not to exceed 30 mL in 24 hours as needed for cough 11/07/2020 11/11/2020 Inactive prednisone 20 mg tablet RxNorm: 478867 Take 2 Tablet(s) Oral QD 11/11/2020 Inactive omeprazole 20 mg tablet,delayed release RxNorm: 407001 1 Tablet (s) Oral QD 11/01/2020 01/29/2021 Active Singulair 10 mg tablet RxNorm: 892925 1 Tablet(s) Oral QD 11/01/2020 01/29/2021 Active aspirin 81 mg tablet,delayed release RxNorm: 687455 1 Tablet(s) Oral QD 11/01/2020 No Stop Date Active Benadryl 25 mg capsule RxNorm: 1952917 1 Capsule(s) Oral two jessie es a day 11/01/2020 No Stop Date Active acetaminophen 500 mg capsule RxNorm: 043812 2 Capsule(s) Oral QD No Stop Date Active Singulair 10 mg tablet RxNorm: 716198 1 Tablet(s) Oral QD 11/01/2020 10/31/2020 Inactive diclofenac sodium 75 mg tablet,delayed release RxNorm: 78465 6 Take 1 Tablet(s) Oral two times a day 11/01/2020 11/13/2020 Inactive omeprazole 20 mg tablet,delayed release RxNorm: 509371 1 Tablet (s) Oral QD 11/01/2020 10/31/2020 Inactive Nasacort nasal RxNorm: 189664 nasal 11/01/2020 Active levothyroxine 100 mcg capsule RxNorm: 638453 oral 11/14/2020 Inactive Medication Administered No Medication Administered data Immunizations No Immunization data Results No Results data Procedures Procedure Codes Date PPPS, subseq visit CPT-4: G0439 11/14/2020 SARSCOV & INF VIR A&B AG IA CPT-4: 97566 11/07/2020 Vital Signs Date Vital 11/14/2020 Blood Pressure 1: 124/78 Code: 8480-6 BMI: 23.5 Code: 48489-3 Heart Rate 1: 80 bpm Height: 5'7" Code: 8302-2 Respiratory Rate: 20 bpm SpO2: 97% Temperature: 36.7 (C) / 98.1 (F) Weight: 150 lbs Code: 46729-2 11/07/2020 Heart Rate 1: 78 bpm Respiratory Rate: 18 bpm SpO2: 99 % Temperature: 36.6 (C) / 97.8 (F) 11/01/2020 Blood Pressure 1: 134/72 Code: 8480-6 BMI: 24.1 Code: 52415-2 Heart Rate 1: 69 bpm Height: 5'7" Code: 8302-2 Respiratory Rate: 16 bpm SpO2: 97% Temperature: 37.0 (C) / 98.6 (F) Weight: 154 lbs Code: 16744-9 Functional Status No Functional Status data Reason For Visit Reason For Visit Effective Dates Notes well woman exam (65+ years) 11/14/2020 Medicare Wel lness diarrhea 11/07/2020 ~generic 11/01/[address] [facility] Encounters Encounter Performer Location Codes Date (89238) OFFICE/OUTPATIENT VISIT EST Diagnosis: Lab test negative for COVID-19 virus[ICD10: Z20.822] Diagnosis: Acute upper respiratory infection, unspecified[ICD10: J06.9] Barbara Hayes [employer] CPT-4: 61963 11/07/2020 (77331) OFFICE/OUTPATIENT VISIT NEW Diagnosis: Gastroesophageal reflux disease, unspecified whether esophagitis present[ICD10: K21.9] Diagnosis: Seasonal allergic rhinitis, unspecified trigger[ICD10: J30.2] Diagnosis: Primary osteoarthritis, left hand[ICD10: M19.042] Diagnosis: Arthritis of both hands[ICD10: M19.041] Diagnosis: Hypothyroidism, unspecified type[ICD10: E03.9] Diagnosis: Encounter to establish care with new doctor[ICD10: Z76.89] Barbara Hayes [employer] CPT-4: 44442 11/01/2020 Plan of Care Planned Activity Notes [...] 11/14/2020 Visit Diagnosis Plan: Encounter for [facility] adult medical examination without abnormal findings Discussion: [...] K21.9 11/14/2020 Appointment: Gustavo Du[facility] [phone] [facility] [facility] called to change her appt but wh marcela i informed he it was with doctor she decided to keep it Annual Well Visit 11/14/2020 Care Plan: Referral Order SNOMED-CT : 30 9711126 Pending 11/14/2020 Visit Diagnosis Plan: Acute upper [...] Z20.822 11/07/2020 Appointment: Abigail Barbara [facility]Ptel[facility] [phone] [facility] [facility] 11/07/2020 Patient Education: Patient Medication Summary Completed 11/07/2020 Patient Education: promethazine-DM- OptimizeRX Coupon [id number] https://www.[employer].com/samplemd/resources/getResource/61/49xq0g95-81a4-5aq4-v8 Completed 11/07/2020 Patient Education: prednisone- OptimizeRX Coupon [phone] https://www.[employer].com/samplemd/resources/getResource/61/65xy00f2-4g61-01u0-7w Completed 11/07/2020 Visit Diagnosis Plan: Encounter to [...] M19.041 11/01/2020 Appointment: Barbara Hayes WPtel: [phone] [facility] NEW PATIENT 11/01/2020 Patient Education: Patient Medication Summary Completed 11/01/2020 Patient Education: Singulair- OptimizeRX Coupon [id number] https://www.[employer]/samplemd/resources/getResource/61/80w97e71-vnni-2p12-y0 Completed 11/01/2020 Patient Education: diclofenac sodium- OptimizeRX Coupo n [id number] https://www.[employer].Zync[employer]/samplemd/resources/getResource/61/8995680u-o002-51h1-86 Completed 11/01/2020 Referral: David Radford WPtel: [address] [place], [place] [id number] Referral Appointment Requested Instructions No Instructions Medical Equipment No Medical Equipment data Health Concerns Section Health Concerns data not found Goals Section Goals data not found Interventions Section Interventions data not found Health Status Evaluations/Outcomes Section Health Status Evaluations/Outcomes data not found Advance Directives No Advance Directive data
--- OUTSIDE RECORDS SUMMARY | 2020-12-17 07:34 | XMS REPORT | CCD ---
Author Author Slime Hayes Organization [facility] SalgadoCh[facility] Address [address] [place] [address] Phone Care Team Providers Care Em Physician Name Role Phone PP Unavailable CCM Unavailable Summary Purpose Interface Exchange Insurance Providers Payer name Policy type / Coverage type Covered libertarian ID Effective Begin Date Effective End Date WPS MEDIC[place] B [place] Medicare Part B [id number] 2020 Unknown Old [employer] Medicare Part B [id number] 2021 [id number] Unknown Family history Brother Diagnosis [...] status Unknown 11/01/[address]: 121227042 Never smoker 11/01/2020 Frequency of drinks SNOMED CT: 422371889 Drinks rarely 021 Allergies, Adverse Reactions, Alerts Substance Reaction Codes Entered Date Inactivated Date Status * NO KNOWN DRUG ALLERGIES Unknown 11/01/2020 No Inactiv e Date Active _ Unknown 11/01/2020 No Inactive Date Active Problems Condition Codes Effective Dates Condition Status Arthritis of both hands ICD-10: M19.041 ICD-9: [...] Start Date Stop Date Status Fill Instructions omeprazole 20 mg tablet,delayed release RxNorm: 233943 1 Tablet (s) Oral QD 11/01/2020 01/29/2021 Active diclofenac sodium 75 mg tablet,delayed release RxNorm: 27221 6 Take 1 Tablet(s) Oral two times a day 11/01/2020 01/29/2021 Active Singulair 10 mg tablet RxNorm: 797670 1 Tablet(s) Oral QD 11/01/2020 01/29/2021 Active aspirin 81 mg tablet,delayed release RxNorm: 118351 1 Tablet(s) Oral QD 11/01/2020 No Stop Date Active Benadryl 25 mg capsule RxNorm: 5413194 1 Capsule(s) Oral two jessie es a day 11/01/2020 No Stop Date Active acetaminophen 500 mg capsule RxNorm: 067945 2 Capsule(s) Oral QD No Stop Date Active Singulair 10 mg tablet RxNorm: 697305 1 Tablet(s) Oral QD 11/01/2020 10/31/2020 Inactive omeprazole 20 mg tablet,delayed release RxNorm: 697483 1 Tablet (s) Oral QD 11/01/2020 10/31/2020 Inactive levothyroxine 100 mcg capsule RxNorm: 100984 oral 11/01/2020 Active Nasacort nasal RxNorm: 096930 nasal 11/01/2020 Active Medication Administered No Medication Administered data Immunizations No Immunization data Results No Results data Procedures No Procedures data Vital Signs Date Vital 11/01/2020 Blood Pressure 1: 134/72 Code: 8480-6 BMI: 24.1 Code: 24263-6 Heart Rate 1: 69 bpm Height: 5'7" Code: 8302-2 Respiratory Rate: 16 bpm SpO2: 97% Temperature: 37.0 (C) / 98.6 (F) Weight: 154 lbs Code: 75303-0 Functional Status No Functional Status data Reason For Visit Reason For Visit Effective Dates Notes ~generic 11/01/2020 new patient [facility] Encounters Encounter Performer Location Codes Date () OFFICE/OUTPATIENT VISIT NEW Diagnosis: Gastroesophageal reflux disease, unspecified whether esophagitis present[ICD10: K21.9] Diagnosis: Seasonal allergic rhinitis, unspecified trigger[ICD10: J30.2] Diagnosis: Primary osteoarthritis, left hand[ICD10: M19.042] Diagnosis: Arthritis of both hands[ICD10: M19.041] Diagnosis: Hypothyroidism, unspecified type[ICD10: E03.9] Diagnosis: Encounter to establish care with new doctor[ICD10: Z76.89] Barbara BISHOP [facility] CPT-4: 87707 11/01/2020 Plan of Care Planned Activity Notes Codes Status Date Visit Diagnosis Plan: Encounter to establish care [...] 11/01/2020 Appointment: Barbara Hayes WPtel[facility] [phone] [facility] NEW PATIENT 11/01/2020 Patient Education: Patient Medication Summary Completed 11/01/2020 Patient Education: Singulair- OptimizeRX Coupon [phone] https://www.[employer]/samplemd/resources/getResource/61/16f63m32-khcg-9i47-l5 Completed 11/01/2020 Patient Education: diclofenac sodium- OptimizeRX Coupo n [id number] https://www.[employer]/GET IT Mobilemd/resources/getResource/61/3092346a-p207-71p6-23 Completed 11/01/2020 Instructions No Instructions Medical Equipment No Medical Equipment data Health Concerns Section Health Concerns data not found Goals Section Goals data not found Interventions Section Interventions data not found Health Status Evaluations/Outcomes Section Health Status Evaluations/Outcomes data not found Advance Directives No Advance Directive data
--- OUTSIDE RECORDS SUMMARY | 2020-12-17 07:34 | XMS REPORT | CCD ---
Author Author Slime Hayes Organization 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 [id number] 2021 [id number] Unknown Family history Brother Diagnosis [...] status Unknown 11/01/[address]: 221313654 Never smoker 11/01/2020 Frequency of drinks SNOMED CT: 880937891 Drinks rarely 021 Allergies, Adverse Reactions, Alerts [...] 6.25 mg-15 mg/5 mL oral syrup RxNorm: 472741 Take 5 Milliliter(s) Oral Q4H as needed, not to exceed 30 mL in 24 hours as needed for cough 11/07/2020 11/11/2020 Active prednisone 20 mg tablet RxNorm: 449220 Take 2 Tablet(s) Oral QD 11/11/2020 Active omeprazole 20 mg tablet,delayed release RxNorm: 883431 1 Tablet (s) Oral QD 11/01/2020 01/29/2021 Active diclofenac sodium 75 mg tablet,delayed release RxNorm: 43215 6 Take 1 Tablet(s) Oral two times a day 11/01/2020 01/29/2021 Active Singulair 10 mg tablet RxNorm: 161223 1 Tablet(s) Oral QD 11/01/2020 01/29/2021 Active aspirin 81 mg tablet,delayed release RxNorm: 592796 1 Tablet(s) Oral QD 11/01/2020 No Stop Date Active Benadryl 25 mg capsule RxNorm: 0098758 1 Capsule(s) Oral two jessie es a day 11/01/2020 No Stop Date Active acetaminophen 500 mg capsule RxNorm: 631049 2 Capsule(s) Oral QD No Stop Date Active Singulair 10 mg tablet RxNorm: 399581 1 Tablet(s) Oral QD 11/01/2020 10/31/2020 Inactive omeprazole 20 mg tablet,delayed release RxNorm: 194317 1 Tablet (s) Oral QD 11/01/2020 10/31/2020 Inactive levothyroxine 100 mcg capsule RxNorm: 476510 oral 11/01/2020 Active Nasacort nasal RxNorm: 547390 nasal 11/01/2020 Active Medication Administered No Medication Administered data Immunizations No Immunization data Results No Results data Procedures Procedure Codes Date SARSCOV & INF VIR A&B AG IA CPT-4: 80155 11/07/2020 Vital Signs Date Vital 11/07/2020 Heart Rate 1: 78 bpm Respiratory Rate: 18 bpm SpO2: 99 % Temperature: 36.6 (C) / 97.8 (F) 11/01/2020 Blood Pressure 1: 134/72 Code: 8480-6 BMI: 24.1 Code: 42347-9 Heart Rate 1: 69 bpm Height: 5'7" Code: 8302-2 Respiratory Rate: 16 bpm SpO2: 97% Temperature: 37.0 (C) / 98.6 (F) Weight: 154 lbs Code: 18302-1 Functional Status No Functional Status data Reason For Visit Reason For Visit Effective Dates Notes diarrhea 11/07/2020 ~generic 11/01/2020 new patient [facility] Encounters Encounter Performer Location Codes Date () OFFICE/OUTPATIENT VISIT EST Diagnosis: Lab test negative for COVID-19 virus[ICD10: Z20.822] Diagnosis: Acute upper respiratory infection, unspecified[ICD10: J06.9] Barbara CHEN [employer] CPT-4: 60559 11/07/2020 (11888) OFFICE/OUTPATIENT VISIT NEW Diagnosis: Gastroesophageal reflux disease, unspecified whether esophagitis present[ICD10: K21.9] Diagnosis: Seasonal allergic rhinitis, unspecified trigger[ICD10: J30.2] Diagnosis: Primary osteoarthritis, left hand[ICD10: M19.042] Diagnosis: Arthritis of both hands[ICD10: M19.041] Diagnosis: Hypothyroidism, unspecified type[ICD10: E03.9] Diagnosis: Encounter to establish care with new doctor[ICD10: Z76.89] Barbara [employer] CPT-4: 67300 11/01/2020 Plan of Care Planned Activity Notes [...] Completed 11/07/2020 Patient Education: promethazine-DM- OptimizeRX Coupon [id number] https://www.VibeDeck/sampleVidmind/resources/getResource/61/37fm6c31-37n1-5wi6-e5 Completed 11/07/2020 Patient Education: prednisone- OptimizeRX Coupon [id number] https://www.VibeDeck/adRise/resources/getResource/61/47as12l7-2e42-49a9-0k Completed 11/07/2020 Visit Diagnosis Plan: Encounter to [...] 11/01/2020 [facility]ointment: [facility] [phone] [facility] [facility] 11/01/2020 Patient Education: Patient Medication Summary Completed 11/01/2020 Patient Education: Singulair- OptimizeRX Coupon [id number] https://www.VibeDeck/sampleVidmind/resources/getResource/61/68m35x80-dcwp-0w99-r4 Completed 11/01/2020 Patient Education: diclofenac sodium- OptimizeRX Ricardo n [id number] https://www.adRise.com/samplemd/resources/getResource/61/8331249g-n297-34c1-61 Completed 11/01/2020 Instructions No Instructions Medical Equipment No Medical Equipment data Health Concerns Section Health Concerns data not found Goals Section Goals data not found Interventions Section Interventions data not found Health Status Evaluations/Outcomes Section Health Status Evaluations/Outcomes data not found Advance Directives No Advance Directive data
--- OUTSIDE RECORDS SUMMARY | 2020-12-17 07:34 | XMS REPORT | CCD ---
Author Author Slime Hayes Organization [facility] Address [address] [place] [address] Phone Care Team Providers Care Application Analyst Name Role Phone PP Unavailable CCM Unavailable Summary Purpose Interface Exchange Insurance Providers Payer name Policy type / Coverage type Covered green party ID Effective Begin Date Effective End Date WPS MEDICARE PART B [place] Medicare Part B [id number] 2020 Unknown Old [employer] Medicare Part B [id number] 2021 [id number] Unknown Family history Brother Diagnosis [...] status Unknown 11/01/[address]: 018342634 Never smoker 11/01/2020 Frequency of drinks SNOMED CT: 762754322 Drinks rarely 021 Allergies, Adverse Reactions, Alerts [...] Instructions omeprazole 20 mg tablet,delayed release RxNorm: 920992 1 Tablet (s) Oral QD 11/01/2020 01/29/2021 Active diclofenac sodium 75 mg tablet,delayed release RxNorm: 70061 6 Take 1 Tablet(s) Oral two times a day 11/01/2020 01/29/2021 Active Singulair 10 mg tablet RxNorm: 592721 1 Tablet(s) Oral QD 11/01/2020 01/29/2021 Active aspirin 81 mg tablet,delayed release RxNorm: 567790 1 Tablet(s) Oral QD 11/01/2020 No Stop Date Active Benadryl 25 mg capsule RxNorm: 6450399 1 Capsule(s) Oral two jessie es a day 11/01/2020 No Stop Date Active acetaminophen 500 mg capsule RxNorm: 942662 2 Capsule(s) Oral QD No Stop Date Active Singulair 10 mg tablet RxNorm: 640995 1 Tablet(s) Oral QD 11/01/2020 10/31/2020 Inactive omeprazole 20 mg tablet,delayed release RxNorm: 705329 1 Tablet (s) Oral QD 11/01/2020 10/31/2020 Inactive levothyroxine 100 mcg capsule RxNorm: 100821 oral 11/01/2020 Active Nasacort nasal RxNorm: 290518 nasal 11/01/2020 Active Medication Administered No Medication Administered data Immunizations No Immunization data Results No Results data Procedures No Procedures data Vital Signs Date Vital 11/01/2020 Blood Pressure 1: 134/72 Code: 8480-6 BMI: 24.1 Code: 01200-4 Heart Rate 1: 69 bpm Height: 5'7" Code: 8302-2 Respiratory Rate: 16 bpm SpO2: 97% Temperature: 37.0 (C) / 98.6 (F) Weight: 154 lbs Code: 53300-0 Functional Status No Functional Status data Reason For Visit Reason For Visit Effective Dates Notes ~generic 11/01/2020 new patient [facility] Encounters Encounter Performer Location Codes Date () OFFICE/OUTPATIENT VISIT NEW Diagnosis: Gastroesophageal reflux disease, unspecified whether esophagitis present[ICD10: K21.9] Diagnosis: Seasonal allergic rhinitis, unspecified trigger[ICD10: J30.2] Diagnosis: Primary osteoarthritis, left hand[ICD10: M19.042] Diagnosis: Arthritis of both hands[ICD10: M19.041] Diagnosis: Hypothyroidism, unspecified type[ICD10: E03.9] Diagnosis: Encounter to establish care with new doctor[ICD10: Z76.89] Barbara [facility] CPT-4: 91926 11/01/2020 Plan of Care Planned Activity Notes [...] 11/01/2020 Appointment: Barbara Hayes [facility] [phone] [facility] [facility] 11/01/2020 Patient Education: Patient Medication Summary Completed 11/01/2020 Patient Education: Singulair- OptimizeRX Coupon [phone] https://www.[employer]/samplemd/resources/getResource/61/71v82z92-xcvo-5x58-j2 Completed 11/01/2020 Patient Education: diclofenac sodium- OptimizeRX Coupo n [id number] https://www.[employer]/AudioCure Pharmamd/resources/getResource/61/8167710s-y038-61q3-68 Completed 11/01/2020 Instructions No Instructions Medical Equipment No Medical Equipment data Health Concerns Section Health Concerns data not found Goals Section Goals data not found Interventions Section Interventions data not found Health Status Evaluations/Outcomes Section Health Status Evaluations/Outcomes data not found Advance Directives No Advance Directive data
--- OUTSIDE RECORDS SUMMARY | 2020-12-17 07:34 | XMS REPORT | CCD ---
Author Author Slime Hayes Organization [facility]UST[facility] Address [address] [place] [address] Phone Care Team Providers Care Slasher Sawyer Name Role Phone PP Unavailable CCM Unavailable Summary Purpose Interface Exchange Insurance Providers Payer name Policy type / Coverage type Covered republican ID Effective Begin Date Effective End Date WPS MEDICARE PART B [place] Medicare Part B [id number] 2020 Unknown Old [employer] Medicare Part B [id number] 2021 [id number] Unknown Family history Brother Diagnosis [...] status Unknown 11/01/[address]: 889118573 Never smoker 11/01/2020 Frequency of drinks SNOMED CT: 261850269 Drinks rarely 021 Allergies, Adverse Reactions, Alerts [...] 6.25 mg-15 mg/5 mL oral syrup RxNorm: 648510 Take 5 Milliliter(s) Oral Q4H as needed, not to exceed 30 mL in 24 hours as needed for cough 11/07/2020 11/11/2020 Active prednisone 20 mg tablet RxNorm: 095171 Take 2 Tablet(s) Oral QD 11/11/2020 Active omeprazole 20 mg tablet,delayed release RxNorm: 635012 1 Tablet (s) Oral QD 11/01/2020 01/29/2021 Active diclofenac sodium 75 mg tablet,delayed release RxNorm: 34564 6 Take 1 Tablet(s) Oral two times a day 11/01/2020 01/29/2021 Active Singulair 10 mg tablet RxNorm: 498762 1 Tablet(s) Oral QD 11/01/2020 01/29/2021 Active aspirin 81 mg tablet,delayed release RxNorm: 054983 1 Tablet(s) Oral QD 11/01/2020 No Stop Date Active Benadryl 25 mg capsule RxNorm: 8079959 1 Capsule(s) Oral two jessie es a day 11/01/2020 No Stop Date Active acetaminophen 500 mg capsule RxNorm: 100233 2 Capsule(s) Oral QD No Stop Date Active Singulair 10 mg tablet RxNorm: 644084 1 Tablet(s) Oral QD 11/01/2020 10/31/2020 Inactive omeprazole 20 mg tablet,delayed release RxNorm: 486739 1 Tablet (s) Oral QD 11/01/2020 10/31/2020 Inactive levothyroxine 100 mcg capsule RxNorm: 262323 oral 11/01/2020 Active Nasacort nasal RxNorm: 068981 nasal 11/01/2020 Active Medication Administered No Medication Administered data Immunizations No Immunization data Results No Results data Procedures Procedure Codes Date SARSCOV & INF VIR A&B AG IA CPT-4: 95076 11/07/2020 Vital Signs Date Vital 11/07/2020 Heart Rate 1: 78 bpm Respiratory Rate: 18 bpm SpO2: 99 % Temperature: 36.6 (C) / 97.8 (F) 11/01/2020 Blood Pressure 1: 134/72 Code: 8480-6 BMI: 24.1 Code: 12942-5 Heart Rate 1: 69 bpm Height: 5'7" Code: 8302-2 Respiratory Rate: 16 bpm SpO2: 97% Temperature: 37.0 (C) / 98.6 (F) Weight: 154 lbs Code: 80612-7 Functional Status No Functional Status data Reason For Visit Reason For Visit Effective Dates Notes diarrhea 11/07/2020 ~generic 11/01/2020 new patient [facility] Encounters Encounter Performer Location Codes Date () OFFICE/OUTPATIENT VISIT EST Diagnosis: Lab test negative for COVID-19 virus[ICD10: Z20.822] Diagnosis: Acute upper respiratory infection, unspecified[ICD10: J06.9] Barbara CHEN [employer] CPT-4: 78897 11/07/2020 (62774) OFFICE/OUTPATIENT VISIT NEW Diagnosis: Gastroesophageal reflux disease, unspecified whether esophagitis present[ICD10: K21.9] Diagnosis: Seasonal allergic rhinitis, unspecified trigger[ICD10: J30.2] Diagnosis: Primary osteoarthritis, left hand[ICD10: M19.042] Diagnosis: Arthritis of both hands[ICD10: M19.041] Diagnosis: Hypothyroidism, unspecified type[ICD10: E03.9] Diagnosis: Encounter to establish care with new doctor[ICD10: Z76.89] Barbara BESSPT [employer] [employer] [facility] CPT-4: 07908 11/01/2020 Plan of Care Planned Activity Notes [...] Completed 11/07/2020 Patient Education: promethazine-DM- OptimizeRX Coupon [id number] https://www.Meebler/sampleInnohub/resources/getResource/61/47rt0k33-53b9-4zh9-o8 Completed 11/07/2020 Patient Education: prednisone- OptimizeRX Coupon [phone] https://www.Meebler/miDrive/resources/getResource/61/60tl22b6-5f98-18d1-8i Completed 11/07/2020 Visit Diagnosis Plan: Encounter to [...] 11/01/2020 Appointment: Barbara Hayes [facility] [phone] [facility] [facility] 11/01/2020 Patient Education: Patient Medication Summary Completed 11/01/2020 Patient Education: Singulair- OptimizeRX Coupon [id number] https://www.Meebler/sampleInnohub/resources/getResource/61/28f25l66-lfjc-5q63-b9 Completed 11/01/2020 Patient Education: diclofenac sodium- OptimizeRX Ricardo n [id number] https://www.miDrive.com/samplemd/resources/getResource/61/2856467y-o068-51w9-11 Completed 11/01/2020 Instructions No Instructions Medical Equipment No Medical Equipment data Health Concerns Section Health Concerns data not found Goals Section Goals data not found Interventions Section Interventions data not found Health Status Evaluations/Outcomes Section Health Status Evaluations/Outcomes data not found Advance Directives No Advance Directive data
--- OUTSIDE RECORDS SUMMARY | 2020-12-17 07:34 | XMS REPORT | CCD ---
Author Author Slime Hayes Organization [facility]Ch[facility] Address [address] [place] [address] Phone Care Team Providers Care Wire Web Worker Name Role Phone PP Unavailable CCM Unavailable Summary Purpose Interface Exchange Insurance Providers Payer name Policy type / Coverage type Covered constitution party ID Effective Begin Date Effective End Date WPS MEDIC[place] PART B [place] Medicare Part B [id number] 2020 Unknown Old [employer]ty [employer] Medicare Part B [id number] 2021 [id number] Unknown Family history Brother Diagnosis [...] status Unknown 11/01/[address]: 463952504 Never smoker 11/01/2020 Frequency of drinks SNOMED CT: 628037163 Drinks rarely 021 Allergies, Adverse Reactions, Alerts [...] Instructions omeprazole 20 mg tablet,delayed release RxNorm: 719939 1 Tablet (s) Oral QD 11/01/2020 01/29/2021 Active diclofenac sodium 75 mg tablet,delayed release RxNorm: 91761 6 Take 1 Tablet(s) Oral two times a day 11/01/2020 01/29/2021 Active Singulair 10 mg tablet RxNorm: 219761 1 Tablet(s) Oral QD 11/01/2020 01/29/2021 Active aspirin 81 mg tablet,delayed release RxNorm: 084984 1 Tablet(s) Oral QD 11/01/2020 No Stop Date Active Benadryl 25 mg capsule RxNorm: 8790866 1 Capsule(s) Oral two jessie es a day 11/01/2020 No Stop Date Active acetaminophen 500 mg capsule RxNorm: 675187 2 Capsule(s) Oral QD No Stop Date Active Singulair 10 mg tablet RxNorm: 121809 1 Tablet(s) Oral QD 11/01/2020 10/31/2020 Inactive omeprazole 20 mg tablet,delayed release RxNorm: 827264 1 Tablet (s) Oral QD 11/01/2020 10/31/2020 Inactive levothyroxine 100 mcg capsule RxNorm: 386401 oral 11/01/2020 Active Nasacort nasal RxNorm: 783421 nasal 11/01/2020 Active Medication Administered No Medication Administered data Immunizations No Immunization data Results No Results data Procedures No Procedures data Vital Signs Date Vital 11/01/2020 Blood Pressure 1: 134/72 Code: 8480-6 BMI: 24.1 Code: 50040-7 Heart Rate 1: 69 bpm Height: 5'7" Code: 8302-2 Respiratory Rate: 16 bpm SpO2: 97% Temperature: 37.0 (C) / 98.6 (F) Weight: 154 lbs Code: 96303-8 Functional Status No Functional Status data Reason For Visit Reason For Visit Effective Dates Notes ~generic 11/01/2020 new patient [facility] Encounters Encounter Performer Location Codes Date () OFFICE/OUTPATIENT VISIT NEW Diagnosis: Gastroesophageal reflux disease, unspecified whether esophagitis present[ICD10: K21.9] Diagnosis: Seasonal allergic rhinitis, unspecified trigger[ICD10: J30.2] Diagnosis: Primary osteoarthritis, left hand[ICD10: M19.042] Diagnosis: Arthritis of both hands[ICD10: M19.041] Diagnosis: Hypothyroidism, unspecified type[ICD10: E03.9] Diagnosis: Encounter to establish care with new doctor[ICD10: Z76.89] Barbara [facility] CPT-4: 55933 11/01/2020 Plan of Care Planned Activity Notes [...] 11/01/2020 Appointment: Barbara Hayes [facility] [phone] [id number] [facility]IENT 11/01/2020 Patient Education: Patient Medication Summary Completed 11/01/2020 Patient Education: Singulair- OptimizeRX Coupon [phone] https://www.Ziffi/samplemd/resources/getResource/61/08i11w00-kcgh-0l24-w3 Completed 11/01/2020 Patient Education: diclofenac sodium- OptimizeRX Coupo n [id number] https://www.Ziffi/Better Placemd/resources/getResource/61/3188577f-b118-91c3-40 Completed 11/01/2020 Instructions No Instructions Medical Equipment No Medical Equipment data Health Concerns Section Health Concerns data not found Goals Section Goals data not found Interventions Section Interventions data not found Health Status Evaluations/Outcomes Section Health Status Evaluations/Outcomes data not found Advance Directives No Advance Directive data
--- NOTE | 2020-12-17 08:19 | Progress Note-Pre Operative ---
Pre-Operative Progress Note H&P Reviewed The H&P was reviewed, patient examined and no changes noted. Time Seen by Provider: 08:16 Date H&P Reviewed: Dec 17, 2020 Time H&P Reviewed: 08:16 Pre-Operative Diagnosis: Melena, Gastritis, Hx of Polyps SUZI COOMBS DO Dec 17, 2020 08:19
--- NOTE | 2020-12-17 09:27 | Progress Note-Post Operative ---
Post-Operative Progess Note Surgeon (s)/Oracle Manager (s) Surgeon SUZI COOMBS DO Oracle Manager: Dino Vázquez MSIII Pre-Operative Diagnosis Melena, Gastritis, Hx of Polyps Post-Operative Diagnosis Gastritis hiatal hernia Polyp Diverticula Int hemorrhoids Procedure & Operative Findings Date of Procedure 12/17/20 Procedure Performed/Findings EGD with Biopsy Colonoscopy with Hot biopsy PROCEDURE NOTE: After informed consent was obtained, the patient was brought to the endoscopy suite, placed in bed in left lateral decubitus position. She was administered IV sedation by the FENCE MANUFACTURE SUPERVISOR who then monitored vitals the entire time, heart rate, blood pressure and pulse ox and the scope was inserted down the mouth through the esophagus into the stomach. On the way down, noted some mild esophagitis, took a picture, pushed into the stomach, pushed past the antrum into the duodenum. Duodenum looked good. The antrum and the rest of the stomach looked very red, like a bad Gastritis. Pulled back and did a biopsy of antrum and then retroflexed the scope; saw a small hiatal hernia and took a picture. Then did a biopsy of the body of the stomach, next pulled the scope into the GE junction and then did a biopsy of the GE junction. Pushed the scope back into the stomach, suctioned all the air out of the stomach. At this point pulled the scope up the esophagus and out the mouth. Switched camera, switched gloves, went down below and started the colonoscopy. Pushed all the way into about 150 cm to get all the way to cecum. On the way in noted a large number of diverticula and took a picture of them. Once in the cecum took a picture of the appendiceal orifice and noted the ileocecal valve. Started slowly withdrawing the scope, insufflating to look circumferentially at the delvalle; beginning in the cecum and into the ascending colon where I saw a flat polyp and elected to do a hot biopsy. Continued up the ascending colon to the hepatic flexure, then down the transverse colon to the splenic flexure, into the descending colon, down into the sigmoid and finally into the rectum. Retroflexed in the rectal vault, saw some minimal internal hemorrhoids and took a picture of this. The patient tolerated the procedure and she recovered in the endoscopy suite. Anesthesia Type IV sedation by FENCE MANUFACTURE SUPERVISOR Estimated Blood Loss Estimated blood loss (mL): scant Specimens/Packing Specimens Removed antral bx body of stomach bx GE jxn bx Asc colon polyp bx SUZI COOMBS DO Dec 17, 2020 09:27
--- NOTE | 2020-12-17 09:28 | Endoscopy Discharge Instruct ---
Endo Procedure/Findings Findings 1.: Gastritis 2.: Hiatal Hernia 3.: Polyp 4.: Diverticulosis, Internal Hemorrhoids Discharge Instructions - Activity: You might feel a little sleepy until tomorrow. This is due to the medicine you received to relax you. Until tomorrow, you should: NOT drive a car, operate machinery or power tools. NOT drink any alcoholic beverages. NOT make any important decisions or sign importortant papers. Do not return to work until tomorrow, unless otherwise instructed. Resume previous activities tomorrow. Diet: Start by taking liquids. If you tolerate liquids, advance to solid food. 1.: Colonscopy in 5 years 2.: EGD in 3 years Notify Physician - If you experience excessive bleeding, unusual abdominal pain, fever, or chest pain, contact your doctor immediately. SUZI COOMBS DO Dec 17, 2020 09:28
--- NOTE | 2020-12-17 13:20 | Anesthesia-General Post-Op ---
MAC Patient Condition Mental Status/LOC: Same as Preop Cardiovascular: Satisfactory Nausea/Vomiting: Absent Respiratory: Satisfactory Pain: Controlled Complications: Absent Post Op Complications Complications None Follow Up Care/Instructions Patient Instructions None needed. Anesthesiology Discharge Order Discharge Order Patient is doing well, no complaints, stable vital signs, no apparent adverse anesthesia problems. No complications reported per nursing. ZEKE GRADY CRNA Dec 17, 2020 13:20
== END ==
LOC: ENDO 07:30
PROVIDERS: ATTEND Surgery
DX: D12.2 Benign neoplasm of ascending colon (principal); K31.A19 Gastric intestinal metaplasia without dysplasia, unspecified site; K92.1 Melena; K44.9 Diaphragmatic hernia without obstruction or gangrene; K57.30 Diverticulosis of large intestine without perforation or abscess without bleeding; K64.8 Other hemorrhoids; K21.9 Gastro-esophageal reflux disease without esophagitis; E03.9 Hypothyroidism, unspecified; K29.50 Unspecified chronic gastritis without bleeding; Z79.82 Long term (current) use of aspirin; Z79.899 Other long term (current) drug therapy; Z79.1 Long term (current) use of non-steroidal anti-inflammatories (NSAID); Z90.49 Acquired absence of other specified parts of digestive tract

== ENCOUNTER → 2020-12-24 | Outpatient (CLI) | payer MEDICARE, OTHER ==
[~2020-12-24] MED LIST changes: +ACETAMINOPHEN 500 MG TAB (TYLENOL) PO PRN; +CASIRIVIMAB/IMDEVIMAB 1,200 MG in NS (IVPB) 250 ML IV ONE; +EPINEPHrine INJECTION 1 MG/ML AMP IM PRN; -HURRICAINE EXT TUBE (BENZOCAINE) XX PRN; -LACTATED RINGERS 1,000 ML IV ONE; -LACTATED RINGERS 1,000 ML IV STA; -MIDAZOLAM 2 MG/2 ML (VERSED) VIAL ONE; +ONDANSETRON 4 MG/2 ML (SDV) Z0FRAN IV PRN; -PROPOFOL INJECTION 0 ML IV ONE; -PROPOFOL INJECTION 50 ML IV ONE; +diphenhydrAMINE 50 MG/ML INJ (BENADRYL) IV PRN
[2020-12-24 12:38] VITALS: BP 147/83
[2020-12-24 14:04] VITALS: BP 140/71
== END ==
LOC: INFUSION 12:17
PROVIDERS: ATTEND Nurse Practitioner Family
DX: U07.1 COVID-19 (principal)

== ENCOUNTER → 2021-05-31 | Outpatient (CLI) | payer MEDICARE, OTHER ==
[~2021-05-31] MED LIST changes: -ACETAMINOPHEN 500 MG TAB (TYLENOL) PO PRN; -CASIRIVIMAB/IMDEVIMAB 1,200 MG in NS (IVPB) 250 ML IV ONE; -EPINEPHrine INJECTION 1 MG/ML AMP IM PRN; +MONT-40 PO; -MONT10TA32 PO; -ONDANSETRON 4 MG/2 ML (SDV) Z0FRAN IV PRN; -diphenhydrAMINE 50 MG/ML INJ (BENADRYL) IV PRN
--- NOTE | 2021-05-31 11:16 | Diagnostic Imaging Report ---
INDICATION: Routine screening. COMPARISON is made with prior mammograms from 05/30/2020 and 12/10/2018. 2-D and 3-D bilateral screening mammography was performed with CAD. Both breasts are heterogeneously dense, limiting the sensitivity of mammography. Biopsy marker clips in the upper right breast are again noted. There are benign calcifications in both breasts. No mass or malignant-appearing microcalcifications are seen. Axillae are unremarkable. IMPRESSION: BI-RADS Category 2 No mammographic features suspicious for malignancy are identified. ACR BI-RADS Category 2: Benign findings. Result letter will be mailed to the patient. Note: At least 10% of breast cancer is not imaged by mammography. Dictated by: Dictated on workstation # [id number]
== END ==
LOC: RAD 09:00
PROVIDERS: ATTEND Family Medicine
DX: Z12.31 Encounter for screening mammogram for malignant neoplasm of breast (principal)
CPT/HCPCS: 77063; 77067

== ENCOUNTER → 2021-06-27 | Outpatient (CLI) | payer MEDICARE, OTHER ==
[~2021-06-27] MED LIST changes: +GADOTERATE 0.5 MMOL/ML (CLARISCAN) 20 ML VIAL IV ONE
--- NOTE | 2021-06-27 15:29 | Diagnostic Imaging Report ---
PROCEDURE: MR imaging of the brain with and without contrast. TECHNIQUE: Multiplanar, multisequence MR imaging of the brain was performed with and without contrast. INDICATION: Dizziness. COMPARISON: None. FINDINGS: Mild generalized parenchymal volume loss. Mild nonspecific T2 hyperintensities in the supratentorial white matter. No abnormal intracranial enhancement. No restricted water diffusion. No hemosiderin deposition or evidence of intracranial hemorrhage. Normal morphology including the major midline structures, sella, posterior fossa and cerebellopontine angle. Normal intracranial flow voids. The orbits are negative. Paranasal sinuses are clear. Scant fluid in the left mastoid. Normal bone marrow signal. IMPRESSION: 1. No acute intracranial MRI findings. No evidence of acute infarction or hemorrhage. 2. Age-appropriate generalized volume loss and nonspecific T2 hyperintensities in the supratentorial white matter. 3. Scant nonspecific fluid in the left mastoid. Dictated by: Dictated on workstation # [id number]
== END ==
LOC: RAD 14:00
PROVIDERS: ATTEND Ophthalmology
DX: G31.9 Degenerative disease of nervous system, unspecified (principal); A50 Congenital syphilis
CPT/HCPCS: 70553

== ENCOUNTER → 2021-08-14 | Outpatient (CLI) | payer MEDICARE, OTHER ==
[~2021-08-14] MED LIST changes: -GADOTERATE 0.5 MMOL/ML (CLARISCAN) 20 ML VIAL IV ONE; +RT-ALBUTEROL SULF 2.5 MG/3 ML PRE-MIX VIAL INH ONE
== END ==
LOC: RT 14:15
PROVIDERS: ATTEND Family Medicine
DX: R06.00 Dyspnea, unspecified (principal)
CPT/HCPCS: 94060; 94726; 94729

== ENCOUNTER 2022-04-04 12:21 | Inpatient (IN) | payer MEDICARE, OTHER ==
[~2022-04-04] VITALS: Ht 170.2 cm; Wt 75.4 kg
[~2022-04-04 12:21] MED LIST changes: -RT-ALBUTEROL SULF 2.5 MG/3 ML PRE-MIX VIAL INH ONE
[2022-04-04] MEDS ORDERED: ONDANSETRON 4 MG/2 ML (SDV) Z0FRAN IV PRN (14:15)
--- OUTSIDE RECORDS SUMMARY | 2022-04-04 14:18 | XMS REPORT | CCD ---
Author Author Slime Hayes Organization [facility] Address [address] [place] [address] Phone Care Team Providers Care Embalmer/Funeral Director Name Role Phone PP Unavailable CCM Unavailable Summary Purpose Interface Exchange Insurance Providers Payer name Policy type / Coverage type Covered green party ID Effective Begin Date Effective End Date W[employer] MEDICARE PART B [place] Medicare Part B [id number] Unknown [id number] Medicare Part B [id number] 2021 [id number] Unknown Family history Brother Diagnosis [...] status Unknown 11/01/[address]: 124858993 Never smoker 11/01/2020 Frequency of drinks SNOMED CT: 477651700 Drinks rarely 021 Allergies, Adverse Reactions, Alerts Substance Reaction Codes Entered Date Inactivated Date Status * NO KNOWN DRUG ALLERGIES Unknown 11/01/2020 No Inactiv e Date Active _ Unknown 11/01/2020 No Inactive Date Active Problems Condition Codes Effective Dates Condition Status Allergic rhinitis ICD-10: J30.9 ICD-9: 477.9 03/24/2022 Active Right shoulder tendonitis ICD-10: M77.8 ICD-9: 726.10 03/24/2022 Active Urinary retention ICD-10: R33.9 ICD-9: 788.20 03/24/2022 Active FLU VACCINE ICD-10: Z23 ICD-9: V04.81 01/27/2022 Active Acute dysfunction of right eustachian tube ICD-10: H69 .81 ICD-9: 381.81 12/25/2021 Active Anxiety and depression ICD-10: F41.9 ICD-9: 300.00 12/25/2021 Active Grieving ICD-10: F43.21 ICD-9: 309.0 08/12/2021 Active Vertigo ICD-10: R42 ICD-9: 780.4 01/16/2021 Active of life partner ICD-10: Z63.4 ICD-9: V61.07 01/23/2021 Active Depression ICD-10: F32.A ICD-9: 311 01/16/2021 Active Other malaise and fatigue ICD-10: R53.81 ICD-9: 780.79 07/04/2021 Active Abdominal bloating ICD-10: R14.0 ICD-9: 787.3 05/13/2021 Active 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 ICD-9: 530.85 05/13/2021 Active Epigastric pain ICD-10: R10.13 ICD-9: 789.06 05/13/2021 Active Subacromial bursitis of left shoulder joint ICD-10: M7 5.52 ICD-9: 726.19 05/13/2021 Active Benign positional vertigo ICD-10: H81.10 ICD-9: 386.11 03/11/2021 Active Acute conjunctivitis of both eyes, unspecified acute c onjunctivitis type ICD-10: H10.33 ICD-9: 372.00 01/23/2021 Active Excessive flatus ICD-10: R14.3 ICD-9: 787.3 01/16/2021 Active Gastritis ICD-10: K29.70 ICD-9: 535.50 01/16/2021 Active Contact with and (suspected) exposure to covid-19 ICD- 10: Z20.822 ICD-9: V01.79 11/07/2020 Active COVID-19 ICD-10: U07.1 ICD-9: 079.89 12/24/2020 Active Depression ICD-10: F32.9 ICD-9: 311 11/14/2020 Active [...] unspecified ICD-10: J06.9 ICD-9: 465.9 11/07/2020 Active Arthritis of both hands ICD-10: M19.041 ICD-9: 716.94 11/01/2020 Active Encounter to establish care with new doctor ICD-10: Z7 6.89 ICD-9: V65.8 11/01/2020 Active Primary osteoarthritis, left hand ICD-10: M19.042 11/01/2020 Active Seasonal allergic rhinitis, unspecified trigger ICD-10 : J30.2 ICD-9: 477.9 11/01/2020 Active Medications Medication Codes Instructions Start Date Stop Date Status Fill Instructions Astepro Allergy 205.5 mcg (0.15 %) nasal spray RxNorm: 34565 84 Take 2 [place] Nasal two times a day in each nostril replaces nasonex 03/24/202203/24 Inactive Astepro Allergy 205.5 mcg (0.15 %) nasal spray RxNorm: 88539 84 Take 2 [place] Nasal two times a day in each nostril replaces nasonex 03/24/202203/23 Inactive montelukast 10 mg tablet RxNorm: 959884 Take 1 Tablet(s) Oral QD 07/18/2022 Active Effexor XR 75 mg capsule,extended release RxNorm: 672556 Take 1 Capsule(s) Oral QAM 12/25/2021 06/22/2022 Active omeprazole 20 mg capsule,delayed release RxNorm: 896556 Take 1 Capsule(s) Oral QD 12/18/2021 06/15/2022 Active levothyroxine 75 mcg tablet RxNorm: 891815 Take 1 Tablet(s) Oral QA M 12/12/2021 03/11/2022 Inactive montelukast 10 mg tablet RxNorm: 805852 Take 1 Tablet(s) Oral QD 01/15/2022 Inactive levothyroxine 75 mcg tablet RxNorm: 618413 Take 1 Tablet(s) Oral QA M 09/02/2021 09/02/2021 Inactive omeprazole 20 mg capsule,delayed release RxNorm: 940733 Take 1 Capsule(s) Oral QD 09/02/2021 09/02/2021 Inactive Wellbutrin SR 100 mg tablet, 12 hr sustained-release RxNorm: 407762 Take 1 Tablet(s) Oral QAM replaces 75mg dose 08/12/2021 12/24/2021 Inactive Wellbutrin SR 100 mg tablet, 12 hr sustained-release RxNorm: 320395 Take 1 Tablet(s) Oral QAM replaces 75mg dose 08/12/2021 08/12/2021 Inactive montelukast 10 mg tablet RxNorm: 456814 Take 1 Tablet(s) Oral QD 10/09/2021 Inactive Patient requests 90 days s upply potassium chloride ER 8 mEq capsule,extended release RxNorm: 280352 Take 1 Capsule(s) Oral QD 07/08/2021 10/05/2021 Inactive potassium chloride ER 8 mEq capsule,extended release RxNorm: 644275 Take 1 Capsule(s) Oral QD 07/08/2021 07/08/2021 Inactive Wellbutrin XL 150 mg 24 hr tablet, extended release RxNorm: 509562 Take 1 Tablet(s) Oral QAM 07/04/2021 08/11/2021 Inactive montelukast 10 mg tablet RxNorm: 889252 Take 1 Tablet(s) Oral QD 06/13/2021 Inactive omeprazole 20 mg capsule,delayed release RxNorm: 078192 Take 1 Capsule(s) Oral QD 06/11/2021 06/11/2021 Inactive levothyroxine 75 mcg tablet RxNorm: 397202 Take 1 Tablet(s) Oral QA M 05/22/2021 05/22/2021 Inactive sertraline 25 mg tablet RxNorm: 314218 Take 1/2 Tablet(s) Oral QAM 04/30/2021 07/03/2021 Inactive omeprazole 20 mg capsule,delayed release RxNorm: 873755 Take 1 Capsule(s) Oral QD 03/14/2021 03/14/2021 Inactive Ativan 1 mg tablet RxNorm: 387293 Take 0.5-1 Tablet(s) Oral two times a day as needed for vertigo 03/11/2021 08/11/2021 Inactive montelukast 10 mg tablet RxNorm: 951922 Take 1 Tablet(s) Oral QD 04/09/2021 Inactive omeprazole 20 mg capsule,delayed release RxNorm: 149761 Take 1 Capsule(s) Oral QD 03/11/2021 03/14/2021 Inactive scopolamine 1 mg over 3 days transdermal patch RxNorm: 14421 2 Apply 1 Application Transdermal behind left ear x1 03/11/2021 07/03/2021 Inact zohra levothyroxine 75 mcg tablet RxNorm: 333096 Take 1 Tablet(s) Oral QA M 2021 2021 Inactive buspirone 5 mg tablet RxNorm: 382184 Take 1 Tablet(s) O ral three times a day as needed for anxiety 01/23/2021 No Stop Date Active polymyxin B sulfate 10,000 unit-trimethoprim 1 mg/mL eye no ps RxNorm: 180113 Take 1 Drop(s) ophthalmic (eye) three times a day into affected eye(s) 01/23/2021 01/27/2021 Inactive sertraline 25 mg tablet RxNorm: 479794 Take 1/2 Tablet(s) Oral QAM 01/16/2021 01/16/2021 Inactive omeprazole 20 mg capsule,delayed release RxNorm: 906953 Take 1 Capsule(s) Oral QD 01/15/2021 02/13/2021 Inactive montelukast 10 mg tablet RxNorm: 635145 Take 1 Tablet(s) Oral QD 02/13/2021 Inactive Tessalon Perles 100 mg capsule RxNorm: 558774 Take 1 Ca psule(s) Oral three times a day as needed for cough 12/31/2020 12/31/2020 Inactive Tessalon Perles 100 mg capsule RxNorm: 809875 Take 1 Ca psule(s) Oral three times a day as needed for cough 12/31/2020 12/31/2020 Inactive ProAir HFA 90 mcg/actuation aerosol inhaler RxNorm: 338784 Take 2 Puff(s) Inhalation Q4H as needed 12/24/2020 01/22/2021 Inactive Decadron 6 mg tablet RxNorm: 659343 Take 1 Tablet(s) Oral QD 202012/28/2020 Inactive levothyroxine 75 mcg tablet RxNorm: 212101 Take 1 Tablet(s) Oral QA M 11/14/2020 11/14/2020 Inactive levothyroxine 100 mcg tablet RxNorm: 185163 Take 1 Tablet(s) Oral Q D 11/14/2020 11/14/2020 Inactive Effexor XR 75 mg capsule,extended release RxNorm: 085115 Take 1 Capsule(s) Oral QAM 11/14/2020 01/15/2021 Inactive promethazine-DM 6.25 mg-15 mg/5 mL oral syrup RxNorm: 982053 Take 5 Milliliter(s) Oral Q4H as needed, not to exceed 30 mL in 24 hours as needed for cough 11/07/2020 11/11/2020 Inactive prednisone 20 mg tablet RxNorm: 441857 Take 2 Tablet(s) Oral QD 11/11/2020 Inactive aspirin 81 mg tablet,delayed release RxNorm: 317715 1 Tablet(s) Oral QD 11/01/2020 No Stop Date Active Benadryl 25 mg capsule RxNorm: 1486974 1 Capsule(s) Oral two jessie es a day 11/01/2020 No Stop Date Active acetaminophen 500 mg capsule RxNorm: 559177 2 Capsule(s) Oral QD No Stop Date Active Singulair 10 mg tablet RxNorm: 192305 1 Tablet(s) Oral QD 11/01/2020 10/31/2020 Inactive omeprazole 20 mg tablet,delayed release RxNorm: 892503 1 Tablet (s) Oral QD 11/01/2020 01/29/2021 Inactive diclofenac sodium 75 mg tablet,delayed release RxNorm: 32048 6 Take 1 Tablet(s) Oral two times a day 11/01/2020 11/13/2020 Inactive Singulair 10 mg tablet RxNorm: 763550 1 Tablet(s) Oral QD 11/01/2020 11/01/2020 Inactive omeprazole 20 mg tablet,delayed release RxNorm: 225760 1 Tablet (s) Oral QD 11/01/2020 10/31/2020 Inactive Nasacort nasal RxNorm: 264778 nasal 11/01/2020 Active levothyroxine 100 mcg capsule RxNorm: 044923 oral 11/14/2020 Inactive Medication Administered No Medication Administered data Immunizations Vaccine Codes Dose Date Status Influenza CVX: 141 .5 01/27/2022 Complete Results No Results data Procedures Procedure Codes Date DEXAMETHASONE SODIUM PHOS CPT-4: J1100 03/24/2022 TRIAMCINOLONE ACET INJ NOS CPT-4: J3301 03/24/2022 DRAIN/INJECT JOINT/BURSA CPT-4: 03/24/2022 IIV4 VACC NO PRSV 6 MTHS TO 64 YRS+ IM CPT-4: 67793 01/27/2022 ADMIN INFLUENZA VIRUS VAC CPT-4: G0008 01/27/2022 IIV4 VACC NO PRSV 6 MTHS TO 64 YRS+ IM CPT-4: 68608 01/27/2022 DRAIN/INJECT JOINT/BURSA CPT-4: 83184 05/13/2021 DEXAMETHASONE SODIUM PHOS CPT-4: J1100 05/13/2021 TRIAMCINOLONE ACET INJ NOS CPT-4: J3301 05/13/2021 SARSCOV & INF VIR A&B AG IA CPT-4: 74711 12/24/2020 PPPS, subseq visit CPT-4: G0439 11/14/2020 SARSCOV & INF VIR A&B AG IA CPT-4: 95630 11/07/2020 Vital Signs Date Vital 03/24/2022 Blood Pressure 1: 124/76 Code: 8480-6 Heart Rate 1: 73 bpm Respiratory Rate: 20 bpm SpO2: 96% Temperature: 36.2 (C) / 97.1 (F) We ight: 176 lbs Code: 68621-3 12/25/2021 Blood Pressure 1: 130/76 Code: 8480-6 BMI: 25.8 Code: 27168-7 Heart Rate 1: 80 bpm Height: 5'7" Code: 8302-2 Respiratory Rate: 16 bpm SpO2: 98% Temperature: 36.8 (C) / 98.2 (F) Weight: 165 lbs Code: 19824-1 08/12/2021 Blood Pressure 1: 124/70 Code: 8480-6 Heart Rate 1: 56 bpm Respiratory Rate: 16 bpm SpO2: 99% Temperature: 36.7 (C) / 98.0 (F) We ight: 150 lbs Code: 61582-4 07/04/2021 Blood Pressure 1: 128/78 Code: 8480-6 BMI: 22.9 Code: 84048-3 Heart Rate 1: 72 bpm Height: 5'7" Code: 8302-2 Respiratory Rate: 20 bpm SpO2: 98% Temperature: 36.8 (C) / 98.3 (F) Weight: 146 lbs Code: 18547-4 05/13/2021 Blood Pressure 1: 132/78 Code: 8480-6 Heart Rate 1: 64 bpm Respiratory Rate: 20 bpm SpO2: 100% Temperature: 36.8 (C) / 98.2 (F) We ight: 148 lbs Code: 61958-7 03/11/2021 Blood Pressure 1: 132/76 Code: 8480-6 Heart Rate 1: 64 bpm Respiratory Rate: 20 bpm SpO2: 99% Temperature: 37.2 (C) / 99.0 (F) We ight: 148 lbs Code: 63623-7 01/23/2021 Blood Pressure 1: 116/69 Code: 8480-6 Heart Rate 1: 88 bpm Respiratory Rate: 16 bpm SpO2: 98% Temperature: 37.0 (C) / 98.6 (F) We ight: 149 lbs Code: 72556-1 01/16/2021 Blood Pressure 1: 123/67 Code: 8480-6 Heart Rate 1: 81 bpm Respiratory Rate: 16 bpm SpO2: 98% Temperature: 36.4 (C) / 97.5 (F) We ight: 151 lbs Code: 93301-2 11/14/2020 Blood Pressure 1: 124/78 Code: 8480-6 BMI: 23.5 Code: 67099-4 Heart Rate 1: 80 bpm Height: 5'7" Code: 8302-2 Respiratory Rate: 20 bpm SpO2: 97% Temperature: 36.7 (C) / 98.1 (F) Weight: 150 lbs Code: 63885-1 11/07/2020 Heart Rate 1: 78 bpm Respiratory Rate: 18 bpm SpO2: 99 % Temperature: 36.6 (C) / 97.8 (F) 11/01/2020 Blood Pressure 1: 134/72 Code: 8480-6 BMI: 24.1 Code: 09017-9 Heart Rate 1: 69 bpm Height: 5'7" Code: 8302-2 Respiratory Rate: 16 bpm SpO2: 97% Temperature: 37.0 (C) / 98.6 (F) Weight: 154 lbs Code: 02067-5 Functional Status No Functional Status data Reason For Visit Reason For Visit Effective Dates Notes injection(s) 03/24/2022 wants to talk also a bout her allergy medication doesnt think its helping anymore and to see if there is another type to take shoulder pain 03/24/2022 nasal allergies 03/24/2022 weight gain/obesity 03/24/2022 injection(s) 01/27/2022 otalgia 12/25/2021 depression 12/25/2021 disturbances of emotion 08/12/2021 vertigo 08/12/2021 anxiety 07/04/2021 disturbances of emotion 07/04/2021 shoulder pain 05/13/2021 vertigo 03/11/2021 dizziness 03/11/2021 eye erythema 01/23/2021 eye discharge 01/23/2021 anxiety 01/23/2021 follow up 01/16/2021 Patient would like t o discuss her consultation that she had with . Consult note scanned into chart. depression 01/16/2021 cough 12/24/2020 fatigue 12/24/2020 sinus congestion 12/24/2020 chills 12/24/2020 myalgias 12/24/2020 nausea 12/24/2020 headache 12/24/2020 oral pain 12/24/2020 well woman exam (65+ years) 11/14/2020 Medicare Wel lness hypothyroid 11/14/2020 hyperlipidemia 11/14/2020 diarrhea 11/07/2020 cough 11/07/2020 chills 11/07/2020 ~generic 11/01/2020 new patient [facility] Encounters Encounter Performer Location Location Address Codes Date () OFFICE/OUTPATIENT VISIT EST Diagnosis: Right shoulder tendonitis[ICD10: M77.8] Diagnosis: Allergic rhinitis[ICD10: J30.9] Diagnosis: Urinary retention[ICD10: R33.9] Joyce DUENAS DO [address] [address] CPT-4: 47084 03/24/2022 ([id number]) NURSE/OUTPATIENT VISIT EST Diagnosis: FLU VACCINE[ICD10: Z23] Joyce ZIMMERMAN [address] [address] CPT-4: 61795 01/27/2022 ([id number]) OFFICE/OUTPATIENT VISIT EST Diagnosis: Anxiety and depression[ICD10: F41.9] Diagnosis: Acute dysfunction of right eustachian tube[ICD10: H69.81] Sugey Pateltashia JOYCE DUENAS DO [address] [address] CPT-4: 86745 12/25/2021 ([id number]) OFFICE/OUTPATIENT VISIT EST Diagnosis: Grieving[ICD10: F43.21] Diagnosis: Vertigo[ICD10: R42] Joyce DUENAS DO [address] [address] CPT-4: 21760 08/13/19 ([id number]) OFFICE/OUTPATIENT VISIT EST Diagnosis: Depression[ICD10: F32.A] Diagnosis: of life partner[ICD10: Z63.4] Diagnosis: Other malaise and fatigue[ICD10: R53.81] Joyce DUENAS DO [address] [address] CPT- 4: 94164 07/04/2021 ([id number]) OFFICE/OUTPATIENT VISIT EST 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] Diagnosis: Epigastric pain[ICD10: R10.13] Diagnosis: Abdominal bloating[ICD10: R14.0] Diagnosis: Subacromial bursitis of left shoulder joint[ICD10: M75.52] Diagnosis: Vertigo[ICD10: R42] Joyce DUENAS DO [address] [address] CPT-4: 50866 05/14/19 22 ([id number]) OFFICE/OUTPATIENT VISIT EST Diagnosis: Vertigo[ICD10: R42] Diagnosis: Benign positional vertigo[ICD10: H81.10] Joyce DUENAS DO [address] [address] CPT- 4: 42771 03/11/2021 ([id number]) OFFICE/OUTPATIENT VISIT EST Diagnosis: Acute conjunctivitis of both eyes, unspecified acute conjunctivitis type[ICD10: H10.33] Diagnosis: of life partner[ICD10: Z63.4] Barbara Anthonybren YAHAIRA DUENAS DO [address] [address] CPT-4: 60689 01/23/2021 ([id number]) OFFICE/OUTPATIENT VISIT EST Diagnosis: Gastritis[ICD10: K29.70] Diagnosis: Excessive flatus[ICD10: R14.3] Diagnosis: Depression[ICD10: F32.A] Diagnosis: Vertigo[ICD10: R42] Joyce DUENAS DO [address] [address] CPT-4: 31321 01/17/20 21 ([id number]) OFFICE/OUTPATIENT VISIT EST Diagnosis: Contact with and (suspected) exposure to covid-19[ICD10: Z20.822] Diagnosis: COVID-19[ICD10: U07.1] Barbara Dengkelgus DUENAS DO [address] [address] CPT-4: 30850 12/25/19 21 ([id number]) OFFICE/OUTPATIENT VISIT EST Diagnosis: Lab test negative for COVID-19 virus[ICD10: Z20.822] Diagnosis: Acute upper respiratory infection, unspecified[ICD10: J06.9] Barbara nAthonybren JOYCE DUENAS DO [address] [address] CPT-4: 86973 11/07/2020 ([id number]) OFFICE/OUTPATIENT VISIT NEW Diagnosis: Gastroesophageal reflux disease, unspecified whether esophagitis present[ICD10: K21.9] Diagnosis: Seasonal allergic rhinitis, unspecified trigger[ICD10: J30.2] Diagnosis: Primary osteoarthritis, left hand[ICD10: M19.042] Diagnosis: Arthritis of both hands[ICD10: M19.041] Diagnosis: Hypothyroidism, unspecified type[ICD10: E03.9] Diagnosis: Encounter to establish care with new doctor[ICD10: Z76.89] Barbara Abigail DUENAS DO [facility] [address] [place] [address] CPT-4: 18581 11/01/2020 Plan of Care Planned Activity Notes Codes Status Date Visit Diagnosis Plan: Allergic rhinitis Discussion: Ch mckenzie nasonex to astepro ICD-9 : 477.9 ICD-10 : J30.9 03/24/2022 Visit Diagnosis Plan: Right shoulder tendonitis Discus norris: Injection as above ICD-9 : 726.10 ICD-10 : M77.8 03/24/2022 Visit Diagnosis Plan: Urinary retention Discussion: Ad d D-mannose with cranberry supplement ICD-9 : 788.20 ICD-10 : R33.9 03/24/2022 Appointment: Joyce Duenas WPtel: [address] [place], [place] [phone] [place] INJECTION 01/27/2022 Visit Plan: Documentation by Malinda dominguez RN, student nurse practitioner. I was present with her for the encounter. I personally verified the history of present illness and performed the physical examination and medical decision making. I have verified all of the medical student s documentation for this encounter. Sugey Perla APRN 12/25/2021 Visit NOS Plan: Plan Notes: Documentation by Malinda Goff,... 12/25/2021 Visit Diagnosis Plan: Anxiety and depression Discussio n: Patient discontinued Wellbutrin and restarted Venlafaxine. Patient stable on current medication. Refill sent out at this time. Rtc as needed or further concerns. ICD-9 : 300.00 ICD-10 : F41.9 12/25/2021 Visit Diagnosis Plan: Acute dysfunction of right eusta chian tube Discussion: Rec Flonase 1-2x daily for eustachian tube dysfunction. Rec no picking or placing Q- tips in ear. Rtc if worsening, no improvement, or further concerns. ICD-9 : 381.81 ICD-10 : H69.81 12/25/2021 Appointment: Sugey Perla WPtel: [phone] [phone] ACUTE ILLNESS 12/25/2021 Patient Education: Patient Medication Summary Completed 12/25/2021 Visit Diagnosis Plan: Vertigo Discussion: See neurolog y ICD-9 : 780.4 ICD-10 : R42 08/12/2021 Visit Diagnosis Plan: Grieving Discussion: Continue We llbutrin but change to SR at 100mg po q AM ICD-9 : 309.0 ICD-10 : F43.21 08/12/2021 Appointment: Joyce Duenas WPtel: [address] [place], [place] [phone] FOLLOW UP 08/12/2021 Visit Diagnosis Plan: Depression Discussion: Defers co unseling Stress Reducers Wellbutrin XL 150mg po q AM trial Fwup 1month ICD-9 : 311 ICD-10 : F32.A 07/04/2021 Appointment: Joyce Duenas WPtel: [address] [place], [place] [phone] ACUTE ILLNESS 07/04/2021 Referral: Chadd Dalton WPtel: [address] [id number] [place] Referral Appointment Confirmed 07/02/2021 Visit Diagnosis Plan: Subacromial bursitis of left mehnaz ulder joint Discussion: Injection as above Continue PT Notify if persists Did hit blood vessel in lateral arm with injection so warned of bruising ICD-9 : 726.19 ICD-10 : M75.52 05/13/2021 Visit Diagnosis Plan: Vertigo Discussion: Patient sees Neuro-media analytics manager in [place] next month ICD-9 : 780.4 ICD-10 : R42 05/13/2021 Visit Diagnosis Plan: Alcantar esophagus Discussion: On going issues with epigastric pain and bloating so will do referral to GI--may need pH probe or bacterial overgrowth testing ICD-9 : 530.85 ICD-10 : K22.70 05/13/2021 Appointment: Jyoce Duenas WPtel: [phone] [phone] ACUTE ILLNESS 05/13/2021 Care Plan: Referral Order SNOMED-CT : 30 [id number] Pending 05/13/2021 Appointment: Barbara Hayes WPtel: [phone] [phone] CANCELED 03/20/2021 Visit Diagnosis Plan: Vertigo Discussion: Vestibular e xercises Doing PT but refused Sami Hallpick maneuver Scopolamine patch Ativan to use prn--warned of grogginess and no driving Hydrate Notify if worsens or persists ICD-9 : 780.4 ICD-10 : R42 03/11/2021 Appointment: Joyce Duenas WPtel: [phone] [phone] ACUTE ILLNESS 03/11/2021 Patient Education: VESTIBULAR EXCERCISES Completed 03/11/2021 Patient Education: Ativan- [employer] Coupon [id number] https://www.[employer].Ecoark/samplemd/resources/getResource/61/uk7102r0-8pm5-1yf8-28 Completed 03/11/2021 Visit Diagnosis Plan: Acute conjunctivit is of both eyes, unspecified acute conjunctivitis type Discussion: Will send poly trim drops. U se good hand washing, avoid touching eyes. F/U for concerns. ICD-9 : 372.00 ICD-10 : H10.33 01/23/2021 Visit Diagnosis Plan: of life partner Discussion : Patient reports she has good support system and she is coping well. Will try buspar for anxiety. F/U for no improvement/concerns. ICD-9 : V61.07 ICD-10 : Z63.4 01/23/2021 Appointment: Barbara Hayes WPtel: [phone] [phone] ACUTE ILLNESS 01/23/2021 Patient Education: Patient Medication Summary Completed 01/23/2021 Patient Education: buspirone- [employer] Coupon [id number] https://www.charity: water/sampleCam[place]/resources/getResource/61/910i2ht0-bi43-684i-95 Completed 01/23/2021 Patient Education: polymyxin B sulf-trimethoprim- Opti mize[employer] Coupon [id number] https://www.charity: water/[employer]/resources/getResource/61/1310052m-6fxi-3ou6-jr Completed 01/23/2021 Visit Diagnosis Plan: Depression Discussion: Did not t olerate effexor Sertraline trial 25mg 1/2 tablet daily and call in 2 weeks on how doing ICD-9 : 311 ICD-10 : F32.A 01/16/2021 Visit Diagnosis Plan: Gastritis Discussion: Discussed EGD results Discussed possible pH probe ICD-9 : 535.50 ICD-10 : K29.70 01/16/2021 Visit Diagnosis Plan: Vertigo Discussion: Referral to Vertigo PT in [place] ICD-9 : 780.4 ICD-10 : R42 01/16/2021 Visit Diagnosis Plan: Excessive flatus Discussion: Dis cussed SIBO Will do trial of FODMAP diet first ICD-9 : 787.3 ICD-10 : R14.3 01/16/2021 Appointment: Joyce Duenas WPtel: [phone] [phone] FOLLOW UP 01/16/2021 Patient Education: sertraline- [employer] Coupon [id number] https://www.charity: water/samplemd/resources/getResource/61/1d8c6732-u3q6-3m55-h0 Completed 01/16/2021 Visit Diagnosis Plan: COVID-19 Discussion: This visit was performed via telemedicine. The patient confirmed knowledge of the limitations of the use of telemedicine were verbally confirmed by the provider. Verification of patient i dentity was established. Verbal consent was obtained for medical treatment obtained The patient is being interviewed via Phone consult Patient has + results for SARS Cov2 Patient qualifies for monoclonal antibody infusion. Order sent to [facility]. Decadron and proair inhaler sent to pharmacy. Drink plenty of fluids. Recommend aspirin, vitamin d, vitamin c, and zinc supplements. Obtain pulse oximeter and seek care if oxygen is <90% or if you are having any distress. ICD-9 : 079.89 ICD-10 : U07.1 12/24/2020 Appointment: Barbara Hayes [facility]el[facility] [phone] [facility] [facility] 12/24/2020 Patient Education: Patient Medication Summary Completed 12/24/2020 Patient Education: ProAir HFA- [employer] Coupon [id number] https://www.charity: water/samplemd/resources/getResource/61/422nv784-k1e8-32av-x2 Completed 12/24/2020 Patient Education: ProAir HFA- [employer] Coupon [id number] https://www.charity: water/samplemd/resources/getResource/61/63d6hk84-p6b9-2035-37 Completed 12/24/2020 Visit Diagnosis Plan: Hypothyroidism, unspecified type Discussion: [...] as above and discuss the PFT at [facility] 2mos ICD-9 : 786.09 ICD-10 : R06.00 11/14/2020 Visit Diagnosis Plan: Encounter for [facility] adult medical examination without abnormal findings Discussion: [...] : 530.81 ICD-10 : K21.9 11/14/2020 Appointment: Joyce Duenas WPtel: [phone] [phone] [place] patient called to change her appt but wh marcela i informed he it was with doctor she decided to keep it Annual Well Visit 11/14/2020 Care Plan: Referral Order SNOMED-CT : 30 [id number] Pending 11/14/2020 Visit Diagnosis Plan: Acute upper respiratory infectio n, unspecified Discussion: Promethazine-DM for cough, will give prednisone for inflammation/drainage. Drink plenty of water. F/U for any worsening of symptoms or concerns. ICD-9 : 465.9 ICD-10 : J06.9 11/07/2020 Visit Diagnosis Plan: Lab test negative for COVID-19 v irus Discussion: covid negative ICD-9 : V01.79 ICD-10 : Z20.822 11/07/2020 Appointment: Barbara Hayes [facility]el[facility] [phone] [facility] AC[facility] I[facility] 11/07/2020 Patient Education: Patient Medication Summary Completed 11/07/2020 Patient Education: promethazine-DM- [employer] Coupon [id number] https://www.[employer]ark/samplemd/resources/getResource/61/40bt7s58-23s0-1hx3-y6 Completed 11/07/2020 Patient Education: prednisone- OptimizeRX Coupon [id number] https://www.[employer].com/samplemd/resources/getResource/61/39ei45j5-9d30-30w1-6m Completed 11/07/2020 Visit Diagnosis Plan: Encounter to [...] : M19.041 11/01/2020 Appointment: Barbara Hayes WPtel: [address] [facility] ([place] NEW [facility]IENT 11/01/2020 Patient Education: Patient Medication Summary Completed 11/01/2020 Patient Education: Singulair- OptimizeRX Coupon [id number] https://www.[employer].Ecoark/samplemd/resources/getResource/61/81e83b17-rmub-7p56-z0 Completed 11/01/2020 Patient Education: diclofenac sodium- OptimizeRX Coupo n [id number] https://www.[employer].Ecoark/samplemd/resources/getResource/61/5346523p-j501-73j8-02 Completed 11/01/2020 Referral: David Radford WPtel: [address] [place], [place] [phone] [place] Referral Appointment Requested Referral: Dirk Florence WPtel: [facility] [address] [place] Referral Initiated Instructions Comment Date . Documentation by Malinda Goff RN, [facility] dent nurse practitioner. I was present with her for the encounter. I personally verified the history of present illness and performed the physical examination and medical decision making. I have verified all of the medical student s documentation for this encounter. Sugey Perla, QUARTER SECTION IRONER 12/25/2021 Medical Equipment No Medical Equipment data Health Concerns Section Health Concerns data not found Goals Section Goals data not found Interventions Section Interventions data not found Health Status Evaluations/Outcomes Section Health Status Evaluations/Outcomes data not found Advance Directives No Advance Directive data
--- OUTSIDE RECORDS SUMMARY | 2022-04-04 14:18 | XMS REPORT | CCD ---
Author Author Slime Hayes Organization [facility] Address [address] [place] [address] Phone Care Team Providers Care Market Consultant Name Role Phone PP Unavailable CCM Unavailable Summary Purpose Interface Exchange Insurance Providers Payer name Policy type / Coverage type Covered alliance party ID Effective Begin Date Effective End Date WPS MEDICARE PART B [place] Medicare Part B [id number] Unknown [employer] Medicare Part B [id number] 2021 [id number] Unknown Family history Brother Diagnosis [...] status Unknown 11/01/[address]: 510563587 Never smoker 11/01/2020 Frequency of drinks SNOMED CT: 549364240 Drinks rarely 021 Allergies, Adverse Reactions, Alerts [...] Fill Instructions levothyroxine 75 mcg tablet RxNorm: 481819 Take 1 Tablet(s) Oral QA M 03/25/2022 09/20/2022 Active Astepro Allergy 205.5 mcg (0.15 %) nasal spray RxNorm: 80487 84 Take 2 [place] Nasal two times a day in each nostril replaces nasonex 03/24/202203/24 Inactive Astepro Allergy 205.5 mcg (0.15 %) nasal spray RxNorm: 97111 84 Take 2 [place] Nasal two times a day in each nostril replaces nasonex 03/24/202203/23 Inactive montelukast 10 mg tablet RxNorm: 690034 Take 1 Tablet(s) Oral QD 07/18/2022 Active Effexor XR 75 mg capsule,extended release RxNorm: 029325 Take 1 Capsule(s) Oral QAM 12/25/2021 06/22/2022 Active omeprazole 20 mg capsule,delayed release RxNorm: 641022 Take 1 Capsule(s) Oral QD 12/18/2021 06/15/2022 Active levothyroxine 75 mcg tablet RxNorm: 218736 Take 1 Tablet(s) Oral QA M 12/12/2021 12/12/2021 Inactive montelukast 10 mg tablet RxNorm: 075336 Take 1 Tablet(s) Oral QD 01/15/2022 Inactive levothyroxine 75 mcg tablet RxNorm: 825366 Take 1 Tablet(s) Oral QA M 09/02/2021 09/02/2021 Inactive omeprazole 20 mg capsule,delayed release RxNorm: 898216 Take 1 Capsule(s) Oral QD 09/02/2021 09/02/2021 Inactive Wellbutrin SR 100 mg tablet, 12 hr sustained-release RxNorm: 874652 Take 1 Tablet(s) Oral QAM replaces 75mg dose 08/12/2021 12/24/2021 Inactive Wellbutrin SR 100 mg tablet, 12 hr sustained-release RxNorm: 514708 Take 1 Tablet(s) Oral QAM replaces 75mg dose 08/12/2021 08/12/2021 Inactive montelukast 10 mg tablet RxNorm: 128543 Take 1 Tablet(s) Oral QD 10/09/2021 Inactive Patient requests 90 days s upply potassium chloride ER 8 mEq capsule,extended release RxNorm: 559666 Take 1 Capsule(s) Oral QD 07/08/2021 10/05/2021 Inactive potassium chloride ER 8 mEq capsule,extended release RxNorm: 124593 Take 1 Capsule(s) Oral QD 07/08/2021 07/08/2021 Inactive Wellbutrin XL 150 mg 24 hr tablet, extended release RxNorm: 896050 Take 1 Tablet(s) Oral QAM 07/04/2021 08/11/2021 Inactive montelukast 10 mg tablet RxNorm: 089647 Take 1 Tablet(s) Oral QD 06/13/2021 Inactive omeprazole 20 mg capsule,delayed release RxNorm: 807558 Take 1 Capsule(s) Oral QD 06/11/2021 06/11/2021 Inactive levothyroxine 75 mcg tablet RxNorm: 176430 Take 1 Tablet(s) Oral QA M 05/22/2021 05/22/2021 Inactive sertraline 25 mg tablet RxNorm: 767115 Take 1/2 Tablet(s) Oral QAM 04/30/2021 07/03/2021 Inactive omeprazole 20 mg capsule,delayed release RxNorm: 856634 Take 1 Capsule(s) Oral QD 03/14/2021 03/14/2021 Inactive Ativan 1 mg tablet RxNorm: 012097 Take 0.5-1 Tablet(s) Oral two times a day as needed for vertigo 03/11/2021 08/11/2021 Inactive montelukast 10 mg tablet RxNorm: 001994 Take 1 Tablet(s) Oral QD 04/09/2021 Inactive omeprazole 20 mg capsule,delayed release RxNorm: 858375 Take 1 Capsule(s) Oral QD 03/11/2021 03/14/2021 Inactive scopolamine 1 mg over 3 days transdermal patch RxNorm: 24636 2 Apply 1 Application Transdermal behind left ear x1 03/11/2021 07/03/2021 Inact zohra levothyroxine 75 mcg tablet RxNorm: 675045 Take 1 Tablet(s) Oral QA M 2021 2021 Inactive buspirone 5 mg tablet RxNorm: 015953 Take 1 Tablet(s) O ral three times a day as needed for anxiety 01/23/2021 No Stop Date Active polymyxin B sulfate 10,000 unit-trimethoprim 1 mg/mL eye no ps RxNorm: 716894 Take 1 Drop(s) ophthalmic (eye) three times a day into affected eye(s) 01/23/2021 01/27/2021 Inactive sertraline 25 mg tablet RxNorm: 904686 Take 1/2 Tablet(s) Oral QAM 01/16/2021 01/16/2021 Inactive omeprazole 20 mg capsule,delayed release RxNorm: 776436 Take 1 Capsule(s) Oral QD 01/15/2021 02/13/2021 Inactive montelukast 10 mg tablet RxNorm: 507630 Take 1 Tablet(s) Oral QD 02/13/2021 Inactive Tessalon Perles 100 mg capsule RxNorm: 641115 Take 1 Ca psule(s) Oral three times a day as needed for cough 12/31/2020 12/31/2020 Inactive Tessalon Perles 100 mg capsule RxNorm: 061466 Take 1 Ca psule(s) Oral three times a day as needed for cough 12/31/2020 12/31/2020 Inactive ProAir HFA 90 mcg/actuation aerosol inhaler RxNorm: 008815 Take 2 Puff(s) Inhalation Q4H as needed 12/24/2020 01/22/2021 Inactive Decadron 6 mg tablet RxNorm: 062898 Take 1 Tablet(s) Oral QD 202012/28/2020 Inactive levothyroxine 75 mcg tablet RxNorm: 395624 Take 1 Tablet(s) Oral QA M 11/14/2020 11/14/2020 Inactive levothyroxine 100 mcg tablet RxNorm: 549348 Take 1 Tablet(s) Oral Q D 11/14/2020 11/14/2020 Inactive Effexor XR 75 mg capsule,extended release RxNorm: 969919 Take 1 Capsule(s) Oral QAM 11/14/2020 01/15/2021 Inactive promethazine-DM 6.25 mg-15 mg/5 mL oral syrup RxNorm: 437646 Take 5 Milliliter(s) Oral Q4H as needed, not to exceed 30 mL in 24 hours as needed for cough 11/07/2020 11/11/2020 Inactive prednisone 20 mg tablet RxNorm: 165429 Take 2 Tablet(s) Oral QD 11/11/2020 Inactive aspirin 81 mg tablet,delayed release RxNorm: 912710 1 Tablet(s) Oral QD 11/01/2020 No Stop Date Active Benadryl 25 mg capsule RxNorm: 5570837 1 Capsule(s) Oral two jessie es a day 11/01/2020 No Stop Date Active acetaminophen 500 mg capsule RxNorm: 224922 2 Capsule(s) Oral QD No Stop Date Active Singulair 10 mg tablet RxNorm: 639741 1 Tablet(s) Oral QD 11/01/2020 10/31/2020 Inactive omeprazole 20 mg tablet,delayed release RxNorm: 381265 1 Tablet (s) Oral QD 11/01/2020 01/29/2021 Inactive diclofenac sodium 75 mg tablet,delayed release RxNorm: 54994 6 Take 1 Tablet(s) Oral two times a day 11/01/2020 11/13/2020 Inactive Singulair 10 mg tablet RxNorm: 194896 1 Tablet(s) Oral QD 11/01/2020 11/01/2020 Inactive omeprazole 20 mg tablet,delayed release RxNorm: 071416 1 Tablet (s) Oral QD 11/01/2020 10/31/2020 Inactive Nasacort nasal RxNorm: 122657 nasal 11/01/2020 Active levothyroxine 100 mcg capsule RxNorm: 373616 oral 11/14/2020 Inactive Medication Administered No Medication Administered data Immunizations Vaccine Codes Dose Date Status Influenza CVX: 141 .5 01/27/2022 Complete Results No Results data Procedures Procedure Codes Date DEXAMETHASONE SODIUM PHOS CPT-4: J1100 03/24/2022 TRIAMCINOLONE ACET INJ NOS CPT-4: J3301 03/24/2022 DRAIN/INJECT JOINT/BURSA CPT-4: 03/24/2022 IIV4 VACC NO PRSV 6 MTHS TO 64 YRS+ IM CPT-4: 67647 01/27/2022 ADMIN INFLUENZA VIRUS VAC CPT-4: G0008 01/27/2022 IIV4 VACC NO PRSV 6 MTHS TO 64 YRS+ IM CPT-4: 13843 01/27/2022 DRAIN/INJECT JOINT/BURSA CPT-4: 05/13/2021 DEXAMETHASONE SODIUM PHOS CPT-4: J1100 05/13/2021 TRIAMCINOLONE ACET INJ NOS CPT-4: J3301 05/13/2021 SARSCOV & INF VIR A&B AG IA CPT-4: 33848 12/24/2020 PPPS, subseq visit CPT-4: G0439 11/14/2020 SARSCOV & INF VIR A&B AG IA CPT-4: 84042 11/07/2020 Vital Signs Date Vital 03/24/2022 Blood Pressure 1: 124/76 Code: 8480-6 Heart Rate 1: 73 bpm Respiratory Rate: 20 bpm SpO2: 96% Temperature: 36.2 (C) / 97.1 (F) We ight: 176 lbs Code: 78311-8 12/25/2021 Blood Pressure 1: 130/76 Code: 8480-6 BMI: 25.8 Code: 67271-2 Heart Rate 1: 80 bpm Height: 5'7" Code: 8302-2 Respiratory Rate: 16 bpm SpO2: 98% Temperature: 36.8 (C) / 98.2 (F) Weight: 165 lbs Code: 51521-5 08/12/2021 Blood Pressure 1: 124/70 Code: 8480-6 Heart Rate 1: 56 bpm Respiratory Rate: 16 bpm SpO2: 99% Temperature: 36.7 (C) / 98.0 (F) We ight: 150 lbs Code: 34710-4 07/04/2021 Blood Pressure 1: 128/78 Code: 8480-6 BMI: 22.9 Code: 07926-3 Heart Rate 1: 72 bpm Height: 5'7" Code: 8302-2 Respiratory Rate: 20 bpm SpO2: 98% Temperature: 36.8 (C) / 98.3 (F) Weight: 146 lbs Code: 04458-7 05/13/2021 Blood Pressure 1: 132/78 Code: 8480-6 Heart Rate 1: 64 bpm Respiratory Rate: 20 bpm SpO2: 100% Temperature: 36.8 (C) / 98.2 (F) We ight: 148 lbs Code: 91747-6 03/11/2021 Blood Pressure 1: 132/76 Code: 8480-6 Heart Rate 1: 64 bpm Respiratory Rate: 20 bpm SpO2: 99% Temperature: 37.2 (C) / 99.0 (F) We ight: 148 lbs Code: 62395-9 01/23/2021 Blood Pressure 1: 116/69 Code: 8480-6 Heart Rate 1: 88 bpm Respiratory Rate: 16 bpm SpO2: 98% Temperature: 37.0 (C) / 98.6 (F) We ight: 149 lbs Code: 31267-5 01/16/2021 Blood Pressure 1: 123/67 Code: 8480-6 Heart Rate 1: 81 bpm Respiratory Rate: 16 bpm SpO2: 98% Temperature: 36.4 (C) / 97.5 (F) We ight: 151 lbs Code: 81762-5 11/14/2020 Blood Pressure 1: 124/78 Code: 8480-6 BMI: 23.5 Code: 42084-5 Heart Rate 1: 80 bpm Height: 5'7" Code: 8302-2 Respiratory Rate: 20 bpm SpO2: 97% Temperature: 36.7 (C) / 98.1 (F) Weight: 150 lbs Code: 18904-9 11/07/2020 Heart Rate 1: 78 bpm Respiratory Rate: 18 bpm SpO2: 99 % Temperature: 36.6 (C) / 97.8 (F) 11/01/2020 Blood Pressure 1: 134/72 Code: 8480-6 BMI: 24.1 Code: 56210-2 Heart Rate 1: 69 bpm Height: 5'7" Code: 8302-2 Respiratory Rate: 16 bpm SpO2: 97% Temperature: 37.0 (C) / 98.6 (F) Weight: 154 lbs Code: 06834-3 Functional Status No Functional Status data Reason [...] chills 11/07/2020 ~generic 11/01/2020 new patient establis jose Encounters Encounter Performer Location Location Address Codes Date () OFFICE/OUTPATIENT VISIT EST Diagnosis: Right shoulder tendonitis[ICD10: M77.8] Diagnosis: Allergic rhinitis[ICD10: J30.9] Diagnosis: Urinary retention[ICD10: R33.9] Joyce DUENAS DO [address] [address] CPT-4: 34701 03/24/2022 ([id number]) NURSE/OUTPATIENT VISIT EST Diagnosis: FLU VACCINE[ICD10: Z23] Joyce ZIMMERMAN DO [address] [address] CPT-4: 01868 01/27/2022 ([id number]) OFFICE/OUTPATIENT VISIT EST Diagnosis: Anxiety and depression[ICD10: F41.9] Diagnosis: Acute dysfunction of right eustachian tube[ICD10: H69.81] Sugey Perla JOYCE DUENAS DO [address] [address] CPT-4: 99487 12/25/2021 ([id number]) OFFICE/OUTPATIENT VISIT EST Diagnosis: Grieving[ICD10: F43.21] Diagnosis: Vertigo[ICD10: R42] Joyce DUENAS DO [address] [address] CPT-4: 06193 08/13/19 ([id number]) OFFICE/OUTPATIENT VISIT EST Diagnosis: Depression[ICD10: F32.A] Diagnosis: of life partner[ICD10: Z63.4] Diagnosis: Other malaise and fatigue[ICD10: R53.81] Joyce DUENAS DO [address] [address] CPT- 4: 13596 07/04/2021 ([id number]) OFFICE/OUTPATIENT VISIT EST 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] Diagnosis: Epigastric pain[ICD10: R10.13] Diagnosis: Abdominal bloating[ICD10: R14.0] Diagnosis: Subacromial bursitis of left shoulder joint[ICD10: M75.52] Diagnosis: Vertigo[ICD10: R42] Joyce DUENAS DO [address] [address] CPT-4: 36139 05/14/19 22 ([id number]) OFFICE/OUTPATIENT VISIT EST Diagnosis: Vertigo[ICD10: R42] Diagnosis: Benign positional vertigo[ICD10: H81.10] Joyce DUENAS DO [address] [address] CPT- 4: 25844 03/11/2021 ([id number]) OFFICE/OUTPATIENT VISIT EST Diagnosis: Acute conjunctivitis of both eyes, unspecified acute conjunctivitis type[ICD10: H10.33] Diagnosis: of life partner[ICD10: Z63.4] Barbara Abigail YAHAIRA DUENAS DO [address] [address] CPT-4: 28803 01/23/2021 ([id number]) OFFICE/OUTPATIENT VISIT EST Diagnosis: Gastritis[ICD10: K29.70] Diagnosis: Excessive flatus[ICD10: R14.3] Diagnosis: Depression[ICD10: F32.A] Diagnosis: Vertigo[ICD10: R42] Joyce DUENAS DO [address] [address] CPT-4: 20540 01/17/20 21 ([id number]) OFFICE/OUTPATIENT VISIT EST Diagnosis: Contact with and (suspected) exposure to covid-19[ICD10: Z20.822] Diagnosis: COVID-19[ICD10: U07.1] Barbara Anthonybren JOYCE DUENAS DO [address] [address] CPT-4: 48357 12/25/19 21 ([id number]) OFFICE/OUTPATIENT VISIT EST Diagnosis: Lab test negative for COVID-19 virus[ICD10: Z20.822] Diagnosis: Acute upper respiratory infection, unspecified[ICD10: J06.9] Barbara DUENAS DO [address] [address] CPT-4: 30811 11/07/2020 ([id number]) OFFICE/OUTPATIENT VISIT NEW Diagnosis: Gastroesophageal reflux disease, unspecified whether esophagitis present[ICD10: K21.9] Diagnosis: Seasonal allergic rhinitis, unspecified trigger[ICD10: J30.2] Diagnosis: Primary osteoarthritis, left hand[ICD10: M19.042] Diagnosis: Arthritis of both hands[ICD10: M19.041] Diagnosis: Hypothyroidism, unspecified type[ICD10: E03.9] Diagnosis: Encounter to establish care with new doctor[ICD10: Z76.89] Barbara DUENAS DO [address] [address] CPT-4: 16062 11/01/2020 Plan of Care Planned Activity Notes [...] : R33.9 03/24/2022 Appointment: Joyce Duenas WPtel: [address] [place], [place] [phone] [place] INJECTION 03/24/2022 Appointment: Joyce Duenas WPtel: [address] [place], [place] [phone] [place] INJECTION 01/27/2022 Visit Plan: Documentation by [...] H69.81 12/25/2021 Appointment: Sugey Perla WPtel: [phone] [facility] ACUTE ILLNESS 12/25/2021 Patient Education: Patient Medication Summary Completed 12/25/2021 Visit Diagnosis Plan: Vertigo Discussion: See neurolog y ICD-9 : 780.4 ICD-10 : R42 08/12/2021 Visit Diagnosis Plan: Grieving Discussion: Continue We llbutrin but change to SR at 100mg po q AM ICD-9 : 309.0 ICD-10 : F43.21 08/12/2021 Appointment: Joyce Duenas WPtel: [address] [place], [place] [phone] FOLLOW UP 08/12/2021 Visit Diagnosis Plan: Depression Discussion: Defers co unseling Stress Reducers Wellbutrin XL 150mg po q AM trial Fwup 1month ICD-9 : 311 ICD-10 : F32.A 07/04/2021 Appointment: Joyce Duenas WPtel: [phone] [facility] ACUTE ILLNESS 07/04/2021 Referral: Chadd Dalton WPtel: [address] [facility] [address] [id number] [place] Referral Appointment Confirmed 07/02/2021 Visit Diagnosis Plan: Subacromial bursitis of left mehnaz ulder joint Discussion: Injection as above Continue PT Notify if persists Did hit blood vessel in lateral arm with injection so warned of bruising ICD-9 : 726.19 ICD-10 : M75.52 05/13/2021 Visit Diagnosis Plan: Vertigo Discussion: Patient sees Neuro-car dumper operator in [place] next month ICD-9 : 780.4 ICD-10 : R42 05/13/2021 Visit Diagnosis Plan: Alcantar esophagus Discussion: On going issues with epigastric pain and bloating so will do referral to GI--may need pH probe or bacterial overgrowth testing ICD-9 : 530.85 ICD-10 : K22.70 05/13/2021 Appointment: Joyce Duenas WPtel: [phone] [place] [phone] ACUTE ILLNESS 05/13/2021 Care Plan: Referral Order SNOMED-CT : 30 [id number] Pending 05/13/2021 Appointment: Barbara Hayes WPtel: [phone] [phone] [place] CANCELED 03/20/2021 Visit Diagnosis Plan: Vertigo Discussion: Vestibular e xercises Doing PT but refused Sami Hallpick maneuver Scopolamine patch Ativan to use prn--warned of grogginess and no driving Hydrate Notify if worsens or persists ICD-9 : 780.4 ICD-10 : R42 03/11/2021 Appointment: Joyce Duenas WPtel: [address] [facility] ACUTE ILLNESS 03/11/2021 Patient Education: VESTIBULAR EXCERCISES Completed 03/11/2021 Patient Education: Ativan- OptimizeRX Coupon [id number] https://www.[employer].com/samplemd/resources/getResource/61/oo9655m1-1zo5-7cc4-14 Completed 03/11/2021 Visit Diagnosis Plan: Acute conjunctivit [...] : V61.07 ICD-10 : Z63.4 01/23/2021 Appointment: Abigail Barbara WPtel: [phone] [facility] ACUTE ILLNESS 01/23/2021 Patient Education: Patient Medication Summary Completed 01/23/2021 Patient Education: buspirone- OptimizeRX Coupon [id number] https://www.[employer]entin Uzhun/samplemd/resources/getResource/61/604o9ha6-he75-854j-44 Completed 01/23/2021 Patient Education: polymyxin B sulf-trimethoprim- Opti mizeRX Coupon [id number] https://www.[employer]zh[employer]/samplemd/resources/getResource/61/2538487v-8fms-9pf1-xt Completed 01/23/2021 Visit Diagnosis Plan: Depression Discussion: Did not t olerate effexor Sertraline trial 25mg 1/2 tablet daily and call in 2 weeks on how doing ICD-9 : 311 ICD-10 : F32.A 01/16/2021 Visit Diagnosis Plan: Gastritis Discussion: Discussed EGD results Discussed possible pH probe ICD-9 : 535.50 ICD-10 : K29.70 01/16/2021 Visit Diagnosis Plan: Vertigo Discussion: Referral to Vertigo PT in [place] ICD-9 : 780.4 ICD-10 : R42 01/16/2021 Visit Diagnosis Plan: Excessive flatus Discussion: Dis cussed HITESHO Will do trial of FODMAP diet first ICD-9 : 787.3 ICD-10 : R14.3 01/16/2021 Appointment: Joyce Duenas WPtel: [phone] [phone] FOLLOW UP 01/16/2021 Patient Education: sertraline- OptimizeRX Coupon [id number] https://www.[employer]entin Uzhun/sampleOmn[employer]rol Networks/resources/getResource/61/5u4c2675-m5h4-9x85-d0 Completed 01/16/2021 Visit Diagnosis Plan: COVID-19 Discussion: [...] 12/24/2020 Appointment: Barbara Hayes [facility]el[facility] [phone] [facility] [facility] 12/24/2020 Patient Education: Patient Medication Summary Completed 12/24/2020 Patient Education: ProAir HFA- OptimizeRX Coupon [id number] https://www.[employer] Uzhun/samplemd/resources/getResource/61/116ds915-m5z9-74tl-g6 Completed 12/24/2020 Patient Education: ProAir HFA- OptimizeRX Coupon [id number] https://www.[employer]/samplemd/resources/getResource/61/21s6pi73-g9w4-9256-97 Completed 12/24/2020 Visit Diagnosis Plan: Hypothyroidism, unspecified [...] as above and discuss the PFT at [facility] in 2mos ICD-9 : 786.09 ICD-10 : R06.00 11/14/2020 Visit Diagnosis Plan: Encounter for gene [facility] adult medical examination without abnormal [...] K21.9 11/14/2020 Appointment: Joyce Duenas WPtel: [phone] [phone] patient called to change her appt but wh marcela i informed he it was with doctor she decided to keep it Annual Well Visit 11/14/2020 Care Plan: Referral Order SNOMED-CT : 30 9437350 Pending 11/14/2020 Visit Diagnosis Plan: Acute upper [...] 11/07/2020 Appointment: Barbara Hayes WPtel: [phone] [facility] [facility] 11/07/2020 Patient Education: Patient Medication Summary Completed 11/07/2020 Patient Education: promethazine-DM- OptimizeRX Coupon [id number] https://www.Valentin Uzhun/samplemd/resources/getResource/61/45ch5a06-74w2-7tf4-f8 Completed 11/07/2020 Patient Education: prednisone- OptimizeRX Coupon [id number] https://www.[employer]entin Uzhun/samplemd/resources/getResource/61/76ii87t0-2o84-80e4-8i Completed 11/07/2020 Visit Diagnosis Plan: Encounter to [...] M19.041 11/01/2020 Appointment: Barbara Hayes WPtel: [phone] NEW PATIENT 11/01/2020 Patient Education: Patient Medication Summary Completed 11/01/2020 Patient Education: Singulair- OptimizeRX Coupon [id number] https://www.K[employer].Shipzi/samplemd/resources/getResource/61/24s39u78-bizy-4s24-i8 Completed 11/01/2020 Patient Education: diclofenac sodium- OptimizeRX Coupo n [id number] https://www.[employer].Shipzi/samplemd/resources/getResource/61/6534350a-s752-61q7-65 Completed 11/01/2020 Referral: David Radford WPtel: [address] [place], [place] [phone] [place] Referral Appointment Requested Referral: Dirk Florence WPtel: [facility] [address] Referral Initiated Instructions Comment Date . Documentation by Malinda Goff, RN, [facility] nurse practitioner. I was present with her for the encounter. I personally verified the history of present illness and performed the physical examination and medical decision making. I have verified all of the medical student s documentation for this encounter. Sugey Perla, VP [employer] 12/25/2021 Medical Equipment No Medical Equipment data Health Concerns Section Health Concerns data not found Goals Section Goals data not found Interventions Section Interventions data not found Health Status Evaluations/Outcomes Section Health Status Evaluations/Outcomes data not found Advance Directives No Advance Directive data
--- OUTSIDE RECORDS SUMMARY | 2022-04-04 14:18 | XMS REPORT | CCD ---
Author Author Slime Hayes Organization [facility] Address [address] [place] [address] Phone Care Team Providers Care Philosophy Instructor Name Role Phone PP Unavailable CCM Unavailable Summary Purpose Interface Exchange Insurance Providers Payer name Policy type / Coverage type Covered alliance party ID Effective Begin Date Effective End Date WPS MEDICARE PART B [place] Medicare Part B [id number] Unknown [employer] Medicare Part B [id number] 2021 [id number] Unknown Family history Brother Diagnosis [...] status Unknown 11/01/[address]: 001202886 Never smoker 11/01/2020 Frequency of drinks SNOMED CT: 075922124 Drinks rarely 021 Allergies, Adverse Reactions, Alerts [...] 205.5 mcg (0.15 %) nasal spray RxNorm: 79198 84 Take 2 Alpha Nasal two times a day in each nostril replaces nasonex 03/24/202203/24 Inactive Astepro Allergy 205.5 mcg (0.15 %) nasal spray RxNorm: 98589 84 Take 2 Alpha Nasal two times a day in each nostril replaces nasonex 03/24/202203/23 Inactive montelukast 10 mg tablet RxNorm: 834904 Take 1 Tablet(s) Oral QD 07/18/2022 Active Effexor XR 75 mg capsule,extended release RxNorm: 506643 Take 1 Capsule(s) Oral QAM 12/25/2021 06/22/2022 Active omeprazole 20 mg capsule,delayed release RxNorm: 413231 Take 1 Capsule(s) Oral QD 12/18/2021 06/15/2022 Active levothyroxine 75 mcg tablet RxNorm: 092082 Take 1 Tablet(s) Oral QA M 12/12/2021 03/11/2022 Inactive montelukast 10 mg tablet RxNorm: 090216 Take 1 Tablet(s) Oral QD 01/15/2022 Inactive levothyroxine 75 mcg tablet RxNorm: 915279 Take 1 Tablet(s) Oral QA M 09/02/2021 09/02/2021 Inactive omeprazole 20 mg capsule,delayed release RxNorm: 053546 Take 1 Capsule(s) Oral QD 09/02/2021 09/02/2021 Inactive Wellbutrin SR 100 mg tablet, 12 hr sustained-release RxNorm: 398168 Take 1 Tablet(s) Oral QAM replaces 75mg dose 08/12/2021 12/24/2021 Inactive Wellbutrin SR 100 mg tablet, 12 hr sustained-release RxNorm: 073737 Take 1 Tablet(s) Oral QAM replaces 75mg dose 08/12/2021 08/12/2021 Inactive montelukast 10 mg tablet RxNorm: 183436 Take 1 Tablet(s) Oral QD 10/09/2021 Inactive Patient requests 90 days s upply potassium chloride ER 8 mEq capsule,extended release RxNorm: 055361 Take 1 Capsule(s) Oral QD 07/08/2021 10/05/2021 Inactive potassium chloride ER 8 mEq capsule,extended release RxNorm: 856852 Take 1 Capsule(s) Oral QD 07/08/2021 07/08/2021 Inactive Wellbutrin XL 150 mg 24 hr tablet, extended release RxNorm: 444212 Take 1 Tablet(s) Oral QAM 07/04/2021 08/11/2021 Inactive montelukast 10 mg tablet RxNorm: 407183 Take 1 Tablet(s) Oral QD 06/13/2021 Inactive omeprazole 20 mg capsule,delayed release RxNorm: 455135 Take 1 Capsule(s) Oral QD 06/11/2021 06/11/2021 Inactive levothyroxine 75 mcg tablet RxNorm: 570765 Take 1 Tablet(s) Oral QA M 05/22/2021 05/22/2021 Inactive sertraline 25 mg tablet RxNorm: 862152 Take 1/2 Tablet(s) Oral QAM 04/30/2021 07/03/2021 Inactive omeprazole 20 mg capsule,delayed release RxNorm: 921585 Take 1 Capsule(s) Oral QD 03/14/2021 03/14/2021 Inactive Ativan 1 mg tablet RxNorm: 508958 Take 0.5-1 Tablet(s) Oral two times a day as needed for vertigo 03/11/2021 08/11/2021 Inactive montelukast 10 mg tablet RxNorm: 274048 Take 1 Tablet(s) Oral QD 04/09/2021 Inactive omeprazole 20 mg capsule,delayed release RxNorm: 257440 Take 1 Capsule(s) Oral QD 03/11/2021 03/14/2021 Inactive scopolamine 1 mg over 3 days transdermal patch RxNorm: 05712 2 Apply 1 Application Transdermal behind left ear x1 03/11/2021 07/03/2021 Inact zohra levothyroxine 75 mcg tablet RxNorm: 777159 Take 1 Tablet(s) Oral QA M 2021 2021 Inactive buspirone 5 mg tablet RxNorm: 734664 Take 1 Tablet(s) O ral three times a day as needed for anxiety 01/23/2021 No Stop Date Active polymyxin B sulfate 10,000 unit-trimethoprim 1 mg/mL eye no ps RxNorm: 537541 Take 1 Drop(s) ophthalmic (eye) three times a day into affected eye(s) 01/23/2021 01/27/2021 Inactive sertraline 25 mg tablet RxNorm: 680417 Take 1/2 Tablet(s) Oral QAM 01/16/2021 01/16/2021 Inactive omeprazole 20 mg capsule,delayed release RxNorm: 374819 Take 1 Capsule(s) Oral QD 01/15/2021 02/13/2021 Inactive montelukast 10 mg tablet RxNorm: 543341 Take 1 Tablet(s) Oral QD 02/13/2021 Inactive Tessalon Perles 100 mg capsule RxNorm: 226376 Take 1 Ca psule(s) Oral three times a day as needed for cough 12/31/2020 12/31/2020 Inactive Tessalon Perles 100 mg capsule RxNorm: 051127 Take 1 Ca psule(s) Oral three times a day as needed for cough 12/31/2020 12/31/2020 Inactive ProAir HFA 90 mcg/actuation aerosol inhaler RxNorm: 614921 Take 2 Puff(s) Inhalation Q4H as needed 12/24/2020 01/22/2021 Inactive Decadron 6 mg tablet RxNorm: 425238 Take 1 Tablet(s) Oral QD 202012/28/2020 Inactive levothyroxine 75 mcg tablet RxNorm: 507368 Take 1 Tablet(s) Oral QA M 11/14/2020 11/14/2020 Inactive levothyroxine 100 mcg tablet RxNorm: 304662 Take 1 Tablet(s) Oral Q D 11/14/2020 11/14/2020 Inactive Effexor XR 75 mg capsule,extended release RxNorm: 547553 Take 1 Capsule(s) Oral QAM 11/14/2020 01/15/2021 Inactive promethazine-DM 6.25 mg-15 mg/5 mL oral syrup RxNorm: 953712 Take 5 Milliliter(s) Oral Q4H as needed, not to exceed 30 mL in 24 hours as needed for cough 11/07/2020 11/11/2020 Inactive prednisone 20 mg tablet RxNorm: 722318 Take 2 Tablet(s) Oral QD 11/11/2020 Inactive aspirin 81 mg tablet,delayed release RxNorm: 338343 1 Tablet(s) Oral QD 11/01/2020 No Stop Date Active Benadryl 25 mg capsule RxNorm: 6544479 1 Capsule(s) Oral two jessie es a day 11/01/2020 No Stop Date Active acetaminophen 500 mg capsule RxNorm: 873544 2 Capsule(s) Oral QD No Stop Date Active Singulair 10 mg tablet RxNorm: 774245 1 Tablet(s) Oral QD 11/01/2020 10/31/2020 Inactive omeprazole 20 mg tablet,delayed release RxNorm: 933545 1 Tablet (s) Oral QD 11/01/2020 01/29/2021 Inactive diclofenac sodium 75 mg tablet,delayed release RxNorm: 76894 6 Take 1 Tablet(s) Oral two times a day 11/01/2020 11/13/2020 Inactive Singulair 10 mg tablet RxNorm: 307194 1 Tablet(s) Oral QD 11/01/2020 11/01/2020 Inactive omeprazole 20 mg tablet,delayed release RxNorm: 498681 1 Tablet (s) Oral QD 11/01/2020 10/31/2020 Inactive Nasacort nasal RxNorm: 799290 nasal 11/01/2020 Active levothyroxine 100 mcg capsule RxNorm: 677743 oral 11/14/2020 Inactive Medication Administered No Medication Administered data Immunizations Vaccine Codes Dose Date Status Influenza CVX: 141 .5 01/27/2022 Complete Results No Results data Procedures Procedure Codes Date DEXAMETHASONE SODIUM PHOS CPT-4: J1100 03/24/2022 TRIAMCINOLONE ACET INJ NOS CPT-4: J3301 03/24/2022 DRAIN/INJECT JOINT/BURSA CPT-4: 03/24/2022 IIV4 VACC NO PRSV 6 MTHS TO 64 YRS+ IM CPT-4: 63814 01/27/2022 ADMIN INFLUENZA VIRUS VAC CPT-4: G0008 01/27/2022 IIV4 VACC NO PRSV 6 MTHS TO 64 YRS+ IM CPT-4: 45115 01/27/2022 DRAIN/INJECT JOINT/BURSA CPT-4: 67684 05/13/2021 DEXAMETHASONE SODIUM PHOS CPT-4: J1100 05/13/2021 TRIAMCINOLONE ACET INJ NOS CPT-4: J3301 05/13/2021 SARSCOV & INF VIR A&B AG IA CPT-4: 77308 12/24/2020 PPPS, subseq visit CPT-4: G0439 11/14/2020 SARSCOV & INF VIR A&B AG IA CPT-4: 77073 11/07/2020 Vital Signs Date Vital 03/24/2022 Blood Pressure 1: 124/76 Code: 8480-6 Heart Rate 1: 73 bpm Respiratory Rate: 20 bpm SpO2: 96% Temperature: 36.2 (C) / 97.1 (F) We ight: 176 lbs Code: 50843-8 12/25/2021 Blood Pressure 1: 130/76 Code: 8480-6 BMI: 25.8 Code: 77773-0 Heart Rate 1: 80 bpm Height: 5'7" Code: 8302-2 Respiratory Rate: 16 bpm SpO2: 98% Temperature: 36.8 (C) / 98.2 (F) Weight: 165 lbs Code: 78589-9 08/12/2021 Blood Pressure 1: 124/70 Code: 8480-6 Heart Rate 1: 56 bpm Respiratory Rate: 16 bpm SpO2: 99% Temperature: 36.7 (C) / 98.0 (F) We ight: 150 lbs Code: 75989-0 07/04/2021 Blood Pressure 1: 128/78 Code: 8480-6 BMI: 22.9 Code: 60633-3 Heart Rate 1: 72 bpm Height: 5'7" Code: 8302-2 Respiratory Rate: 20 bpm SpO2: 98% Temperature: 36.8 (C) / 98.3 (F) Weight: 146 lbs Code: 88079-7 05/13/2021 Blood Pressure 1: 132/78 Code: 8480-6 Heart Rate 1: 64 bpm Respiratory Rate: 20 bpm SpO2: 100% Temperature: 36.8 (C) / 98.2 (F) We ight: 148 lbs Code: 35729-3 03/11/2021 Blood Pressure 1: 132/76 Code: 8480-6 Heart Rate 1: 64 bpm Respiratory Rate: 20 bpm SpO2: 99% Temperature: 37.2 (C) / 99.0 (F) We ight: 148 lbs Code: 46383-7 01/23/2021 Blood Pressure 1: 116/69 Code: 8480-6 Heart Rate 1: 88 bpm Respiratory Rate: 16 bpm SpO2: 98% Temperature: 37.0 (C) / 98.6 (F) We ight: 149 lbs Code: 06380-9 01/16/2021 Blood Pressure 1: 123/67 Code: 8480-6 Heart Rate 1: 81 bpm Respiratory Rate: 16 bpm SpO2: 98% Temperature: 36.4 (C) / 97.5 (F) We ight: 151 lbs Code: 00458-7 11/14/2020 Blood Pressure 1: 124/78 Code: 8480-6 BMI: 23.5 Code: 95792-4 Heart Rate 1: 80 bpm Height: 5'7" Code: 8302-2 Respiratory Rate: 20 bpm SpO2: 97% Temperature: 36.7 (C) / 98.1 (F) Weight: 150 lbs Code: 10640-6 11/07/2020 Heart Rate 1: 78 bpm Respiratory Rate: 18 bpm SpO2: 99 % Temperature: 36.6 (C) / 97.8 (F) 11/01/2020 Blood Pressure 1: 134/72 Code: 8480-6 BMI: 24.1 Code: 07807-7 Heart Rate 1: 69 bpm Height: 5'7" Code: 8302-2 Respiratory Rate: 16 bpm SpO2: 97% Temperature: 37.0 (C) / 98.6 (F) Weight: 154 lbs Code: 43256-5 Functional Status No Functional Status data Reason [...] chills 11/07/2020 ~generic 11/01/2020 new patient [facility] Encounters Encounter Performer Location Location Address Codes Date () OFFICE/OUTPATIENT VISIT EST Diagnosis: Right shoulder tendonitis[ICD10: M77.8] Diagnosis: Allergic rhinitis[ICD10: J30.9] Diagnosis: Urinary retention[ICD10: R33.9] Joyce DUENAS DO [address] [address] CPT-4: 44796 03/24/2022 ([id number]) NURSE/OUTPATIENT VISIT EST Diagnosis: FLU VACCINE[ICD10: Z23] Joyce ZIMMERMAN [address] [address] CPT-4: 45854 01/27/2022 ([id number]) OFFICE/OUTPATIENT VISIT EST Diagnosis: Anxiety and depression[ICD10: F41.9] Diagnosis: Acute dysfunction of right eustachian tube[ICD10: H69.81] Sugey Pateltashia JOYCE DUENAS DO [address] [address] CPT-4: 59395 12/25/2021 ([id number]) OFFICE/OUTPATIENT VISIT EST Diagnosis: Grieving[ICD10: F43.21] Diagnosis: Vertigo[ICD10: R42] Joyce DUENAS DO [address] [address] CPT-4: 29530 08/13/19 ([id number]) OFFICE/OUTPATIENT VISIT EST Diagnosis: Depression[ICD10: F32.A] Diagnosis: of life partner[ICD10: Z63.4] Diagnosis: Other malaise and fatigue[ICD10: R53.81] Joyce DUENAS DO [address] [address] CPT- 4: 07348 07/04/2021 ([id number]) OFFICE/OUTPATIENT VISIT EST 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] Diagnosis: Epigastric pain[ICD10: R10.13] Diagnosis: Abdominal bloating[ICD10: R14.0] Diagnosis: Subacromial bursitis of left shoulder joint[ICD10: M75.52] Diagnosis: Vertigo[ICD10: R42] Joyce DUENAS DO [address] [address] CPT-4: 18853 05/14/19 22 ([id number]) OFFICE/OUTPATIENT VISIT EST Diagnosis: Vertigo[ICD10: R42] Diagnosis: Benign positional vertigo[ICD10: H81.10] Joyce DUENAS DO [address] [address] CPT- 4: 67269 03/11/2021 ([id number]) OFFICE/OUTPATIENT VISIT EST Diagnosis: Acute conjunctivitis of both eyes, unspecified acute conjunctivitis type[ICD10: H10.33] Diagnosis: of life partner[ICD10: Z63.4] Barbara Anthonybren YAHAIRA DUENAS DO [address] [address] CPT-4: 31043 01/23/2021 ([id number]) OFFICE/OUTPATIENT VISIT EST Diagnosis: Gastritis[ICD10: K29.70] Diagnosis: Excessive flatus[ICD10: R14.3] Diagnosis: Depression[ICD10: F32.A] Diagnosis: Vertigo[ICD10: R42] Joyce DUENAS DO [address] [address] CPT-4: 19570 01/17/20 21 ([id number]) OFFICE/OUTPATIENT VISIT EST Diagnosis: Contact with and (suspected) exposure to covid-19[ICD10: Z20.822] Diagnosis: COVID-19[ICD10: U07.1] Barbara Dengkelgus DUENAS DO [address] [address] CPT-4: 36806 12/25/19 21 ([id number]) OFFICE/OUTPATIENT VISIT EST Diagnosis: Lab test negative for COVID-19 virus[ICD10: Z20.822] Diagnosis: Acute upper respiratory infection, unspecified[ICD10: J06.9] Barbara Anthonybren JOYCE DUENAS DO [address] [address] CPT-4: 58114 11/07/2020 ([id number]) OFFICE/OUTPATIENT VISIT NEW Diagnosis: Gastroesophageal reflux disease, unspecified whether esophagitis present[ICD10: K21.9] Diagnosis: Seasonal allergic rhinitis, unspecified trigger[ICD10: J30.2] Diagnosis: Primary osteoarthritis, left hand[ICD10: M19.042] Diagnosis: Arthritis of both hands[ICD10: M19.041] Diagnosis: Hypothyroidism, unspecified type[ICD10: E03.9] Diagnosis: Encounter to establish care with new doctor[ICD10: Z76.89] Barbara Abigail DUENAS DO [facility] [address] [place] [address] CPT-4: 50296 11/01/2020 Plan of Care Planned Activity Notes [...] : 788.20 ICD-10 : R33.9 03/24/2022 Appointment: Joyec Duenas WPtel: [address] [place], [place] [address] [place] INJECTION 01/27/2022 Visit Plan: Documentation by [...] : F43.21 08/12/2021 Appointment: Joyce Duenas WPtel: [address] [place], [place] [phone] FOLLOW UP 08/12/2021 Visit Diagnosis Plan: Depression Discussion: Defers co unseling Stress Reducers Wellbutrin XL 150mg po q AM trial Fwup 1month ICD-9 : 311 ICD-10 : F32.A 07/04/2021 Appointment: Joyce Duenas WPtel: [address] [place], [place] [phone] ACUTE ILLNESS 07/04/2021 Referral: Chadd Dalton WPtel: [address] [id number] [place] Referral Appointment Confirmed 07/02/2021 Visit Diagnosis Plan: Subacromial bursitis of left mehnaz ulder joint Discussion: Injection as above Continue PT Notify if persists Did hit blood vessel in lateral arm with injection so warned of bruising ICD-9 : 726.19 ICD-10 : M75.52 05/13/2021 Visit Diagnosis Plan: Vertigo Discussion: Patient sees Neuro-b[facility] carrier in [place] next month ICD-9 : 780.4 ICD-10 : R42 05/13/2021 Visit Diagnosis Plan: Alcantar esophagus Discussion: On going issues with epigastric pain and bloating so will do referral to GI--may need pH probe or bacterial overgrowth testing ICD-9 : 530.85 ICD-10 : K22.70 05/13/2021 Appointment: Joyce Duenas WPtel: [phone] [phone] ACUTE ILLNESS 05/13/2021 Care Plan: Referral Order SNOMED-CT : 30 3269149 Pending 05/13/2021 Appointment: Barbara Hayes WPtel: [phone] [phone] CANCELED 03/20/2021 Visit Diagnosis Plan: Vertigo Discussion: Vestibular e xercises Doing PT but refused Sami Hallpick maneuver Scopolamine patch Ativan to use prn--warned of grogginess and no driving Hydrate Notify if worsens or persists ICD-9 : 780.4 ICD-10 : R42 03/11/2021 Appointment: Joyce Duenas WPtel: [phone] [phone] ACUTE ILLNESS 03/11/2021 Patient Education: VESTIBULAR EXCERCISES Completed 03/11/2021 Patient Education: Ativan- OptimizeRX Coupon [id number] https://www.[employer]/samplemd/resources/getResource/61/oh1648a0-4dl8-9qi0-25 Completed 03/11/2021 Visit Diagnosis Plan: Acute conjunctivit [...] 01/23/2021 Appointment: Barbara Hayes WPtel: [phone] [facility] ACUTE ILLNESS 01/23/2021 Patient Education: Patient Medication Summary Completed 01/23/2021 Patient Education: buspirone- OptimizeRX Coupon [id number] https://www.[employer]/sample[address]resources/getResource/61/581f7ia0-cb85-358t-62 Completed 01/23/2021 Patient Education: polymyxin B sulf-trimethoprim- Opti mizeRX Coupon [id number] https://www.[employer]/resources/getResource/61/0505121j-0flq-5yq6-ok Completed 01/23/2021 Visit Diagnosis Plan: Depression Discussion: Did not t olerate effexor Sertraline trial 25mg 1/2 tablet daily and call in 2 weeks on how doing ICD-9 : 311 ICD-10 : F32.A 01/16/2021 Visit Diagnosis Plan: Gastritis Discussion: Discussed EGD results Discussed possible pH probe ICD-9 : 535.50 ICD-10 : K29.70 01/16/2021 Visit Diagnosis Plan: Vertigo Discussion: Referral to Vertigo PT in [place] ICD-9 : 780.4 ICD-10 : R42 01/16/2021 Visit Diagnosis Plan: Excessive flatus Discussion: Dis cussed SIBO Will do trial of FODMAP diet first ICD-9 : 787.3 ICD-10 : R14.3 01/16/2021 Appointment: Joyce Duenas WPtel: [phone] [facility] FOLLOW UP 01/16/2021 Patient Education: sertraline- OptimizeRX Coupon [id number] https://www.[employer]/samplemd/resources/getResource/61/7b9e0192-u8i3-5b24-a8 Completed 01/16/2021 Visit Diagnosis Plan: COVID-19 Discussion: [...] 12/24/2020 [facility]ment: [facility] [phone] [facility] [facility] 12/24/2020 Patient Education: Patient Medication Summary Completed 12/24/2020 Patient Education: ProAir HFA- OptimizeRX Coupon [id number] https://www.[employer]/samplemd/resources/getResource/61/153im633-e6m6-57cv-u0 Completed 12/24/2020 Patient Education: ProAir HFA- OptimizeRX Coupon [id number] https://www.[employer]/samplemd/resources/getResource/61/24p2ik98-h3h8-9640-88 Completed 12/24/2020 Visit Diagnosis Plan: Hypothyroidism, unspecified [...] as above and discuss the PFT at [facility] in 2mos ICD-9 : 786.09 ICD-10 : R06.00 11/14/2020 Visit Diagnosis Plan: Encounter for [facility] adult medical examination without abnormal findings Discussion: [...] K21.9 11/14/2020 Appointment: Joyce Duenas WPtel: [phone] [phone] [place] patient called to change her appt but wh marcela i informed he it was with doctor she decided to keep it Annual Well Visit 11/14/2020 Care Plan: Referral Order SNOMED-CT : 30 0860100 Pending 11/14/2020 Visit Diagnosis Plan: Acute upper respiratory infectio n, unspecified Discussion: Promethazine-DM for cough, will give prednisone for inflammation/drainage. Drink plenty of water. F/U for any worsening of symptoms or concerns. ICD-9 : 465.9 ICD-10 : J06.9 11/07/2020 Visit Diagnosis Plan: Lab test negative for COVID-19 v irus Discussion: covid negative ICD-9 : V01.79 ICD-10 : Z20.822 11/07/2020 Appointment: Barbara Hayes [facility]el[facility] [phone] [facility] [facility] 11/07/2020 Patient Education: Patient Medication Summary Completed 11/07/2020 Patient Education: promethazine-DM- OptimizeRX Coupon [id number] https://www.[employer]/samplemd/resources/getResource/61/17fk1a38-22f3-7ja1-f3 Completed 11/07/2020 Patient Education: prednisone- OptimizeRX Coupon [id number] https://www.[employer].com/samplemd/resources/getResource/61/54bw70l4-8n28-95b1-5i Completed 11/07/2020 Visit Diagnosis Plan: Encounter to [...] : M19.041 11/01/2020 Appointment: Barbara Hayes WPtel: [address] [facility] 11/01/2020 Patient Education: Patient Medication Summary Completed 11/01/2020 Patient Education: Singulair- OptimizeRX Coupon [id number] https://www.[employer]/samplemd/resources/getResource/61/28f79c24-bzmi-7z13-o7 Completed 11/01/2020 Patient Education: diclofenac sodium- OptimizeRX Coupo n [id number] https://www.[employer]/samplemd/resources/getResource/61/7745111z-h270-90q6-27 Completed 11/01/2020 Referral: David Radford WPtel: [address] [place], [place] [phone] [place] Referral Appointment Requested Referral: Dirk Florence WPtel: [facility] [address] [place] Referral Initiated Instructions Comment Date . Documentation by Malinda Goff RN, [facility] dent nurse practitioner. I was present with her for the encounter. I personally verified the history of present illness and performed the physical examination and medical decision making. I have verified all of the medical student s documentation for this encounter. Sugey Perla, [employer] 12/25/2021 Medical Equipment No Medical Equipment data Health Concerns Section Health Concerns data not found Goals Section Goals data not found Interventions Section Interventions data not found Health Status Evaluations/Outcomes Section Health Status Evaluations/Outcomes data not found Advance Directives No Advance Directive data
[2022-04-04] MEDS ORDERED: dilTIAZem DRIP PRE-MIX 125 ML IV SCH (14:30)
[2022-04-04] MEDS ORDERED: ACETAMINOPHEN 325 MG TABLET PO PRN (14:30)
--- NOTE | 2022-04-04 14:48 | History & Physical ---
History of Present Illness History of Present Illness Reason for visit/HPI This is a 67 year old female who presented to the [facility] Emergency room with heart palpitations. She was found to be in atrial fibrillation with a heart rate in the 160s. She was given a bolus of IV cardizem and started on a drip of IV cardizem. Her troponin-I was mildy elevated but all other labs were normal. She converted back to a NSR on the cardizem drip. [facility] palpitations and occasional shortness of air. She felt a little light headed today but overall denies dizzines or dizzy episodes. She stated she had some chest tightness with the palpitations today but otherwise denies episodes of chest pain. She is currently in a NSR with no symptoms. She denies any alcohol use. She does have hypothyroidism and a previous history of sleep apnea. She states she did not tolerate wearing a CPAP and then further workup revealed that she did not need a CPAP. Date of Admission Apr 04, 2022 at 14:05 Date Seen by a Provider: Apr 04, 2022 Time Seen by a Provider: 14:47 I consulted on this patient on 04/04/22 14:43 Attending Physician Gustavo Duenas DO Admitting Physician Admitting Physician: Gustavo Duenas DO Attending Physician: Gustavo Duenas DO Consult Allergies and Home Medications Allergies Coded Allergies: No Known Drug Allergies (Verified , 12/17/20) Patient Home Medication List Home Medication List Reviewed: Yes Acetaminophen (Acetaminophen) 500 Mg Tablet, 500 MG PO PRN, (Reported) Entered as Reported by: DARWIN OLSEN on 12/10/201200 Aspirin (Aspirin) 81 Mg Tab.chew, 81 MG PO DAILY, (Reported) Entered as Reported by: DARWIN OLSEN on 12/10/201200 Cetirizine HCl (Zyrtec) 10 Mg Tablet, 10 MG PO DAILY, (Reported) Entered as Reported by: DARWIN OLSEN on 12/10/201200 Diclofenac Sodium (Diclofenac Sodium) 75 Mg Tablet.dr, 75 MG PO BID, (Reported) Entered as Reported by: DARWIN OLSEN on 12/10/201200 Diphenhydramine HCl (Benadryl) 25 Mg Capsule, 25 MG PO DAILY, (Reported) Entered as Reported by: DARWIN OLSEN on 12/10/201200 Levothyroxine Sodium (Levothyroxine) 75 Mcg Capsule, 75 MCG PO DAILY, (Reported) Entered as Reported by: DARWIN OLSEN on 12/10/201200 Menthol (Biofreeze) 118 Ml Gel..ml., 118 ML TP PRN, (Reported) Entered as Reported by: DARWIN OLSEN on 12/10/20 120 Montelukast Sodium (Montelukast Sodium) 10 Mg Tablet, 10 MG PO DAILY, (Reported) Entered as Reported by: DARWIN OLSEN on 12/10/201200 Omeprazole (Omeprazole) 20 Mg Capsule.dr, 20 MG PO DAILY, (Reported) Entered as Reported by: DARWIN OLSEN on 12/10/201200 Triamcinolone Acetonide (Nasacort) 10.8 Ml [place], 10.8 ML NS DAILY, (Reported) Entered as Reported by: DARWIN OLSEN on 12/10/201200 Past Dzjadez-Rxhwwo-Snbwal Hx Patient Social History Marrital Status: Immunizations Up To Date First/Initial COVID19 Vaccinat: NO Second COVID19 Vaccination Gustavo: NO Seasonal Allergies Seasonal Allergies: No Past Medical History Surgeries: Adenoidectomy, Hysterectomy, Tonsillectomy Hypothyroidsim Blood Disorders: No Review of Systems Constitutional: No no symptoms reported, No see HPI, No chills, No diaphoresis, No dizziness, No fever, No malaise, No weakness, No weight gain, No weight loss, No other EENTM: No see HPI, No no symptoms reported, No ear discharge, No hearing loss, No ear pain, No blurred vision, No double vision, No eye pain, No tearing, No vision loss, No dental problems, No hoarseness, No mouth pain, No mouth swelling, No epistaxis, No nose congestion, No nose pain, No throat pain, No throat swelling, No other Respiratory: short of breath (occcasional) Cardiovascular: palpitations Gastrointestinal: abdominal pain (epigastric) Genitourinary: no symptoms reported : No Musculoskeletal: back pain, joint pain Psychiatric/Neurological: Anxiety Physical Exam Vital Signs Capillary Refill : Height, Weight, BMI Height: '" Weight: lbs. oz. kg; 24.50 BMI Method: General Appearance: No Apparent Distress HEENT: Normal ENT Inspection Neck: Supple Respiratory: Lungs Clear Cardiovascular: Regular Rate, Rhythm, Systolic Murmur Gastrointestinal: Normal Bowel Sounds, Non Tender, Soft Rectal: Deferred Back: No CVA Tenderness Extremity: Non Tender, No Calf Tenderness, No Pedal Edema Neurologic/Psychiatric: Alert, Oriented x3 Skin: Warm/Dry Assessment/Plan Assessment and Plan 1. New Onset Atrial Fibrillation with RVR--currently back in NSR after cardizem bolus and drip--will convert to oral cardizem, start eliquis, check 2-D ECHO and consult cardiology 2. Hypothyroidism--check TSH and Free T4 3. Elevated Troponin-I--likely Type II from RVR, repeat Troponin-I at 8hr eli 4. History of Sleep Apnea--will need updated sleep study as outpatient 5. GERD/Epigastric Pain--start protonix Admission Diagnosis Admission Status: Inpatient Order (span 2 midnights) Reason for Inpatient Admission: Will need ICU admission and cardiac workup GUSTAVO DUENAS DO Apr 04, 2022 14:48
--- NOTE | 2022-04-04 14:56 | Consultation-Cardiology ---
HPI-Cardiology Cardiology Consultation: Date of Consultation 04/04/22 Time Seen by a Provider: 14:20 Date of Admission 04-04-22 Attending Physician Gustavo Duenas DO Admitting Physician Admitting Physician: Gustavo Duenas DO Attending Physician: Gustavo Duenas DO Consulting Physician Kurtis Casillas MD HPI: Chief Complaint: Newly dx a-fib with RVR Ms. Giron is a 67 yr old female admitted to ICU 11 from [place] ED with newly dx a-fib with RVR. She was given a Cardizem bolus and started on a Cardizem gtt. She has converted to SR. She reports she has had palpitations off and on for "quite awhile". She describes the palpitations as a "fluttering" in her chest that would last for no more than 1-2 minutes. She reports the episodes are infrequent. She denies any c/o CP, syncope or near syncope. She states th is morning she began to have palpitations and they would not resolve. She states she had some lightheadedness. She then decided to come to the ED. No c/o LE swelling. No c/o n/v/d. No c/o fever or chills. Review of Systems-Cardiology Review of Systems Constitutional: No chills, No fever, No malaise Eyes: No vision change Ears/Nose/Throat: No epistaxis, No recent hearing loss Respiratory: As described under HPI Cardiovascular: As described under HPI Gastrointestinal: No constipation, No diarrhea, No nausea, No vomiting Genitourinary: No dysuria, No hematuria Musculoskeletal: no symptoms reported Skin: No rash on exposed areas, No ulcerations on exposed areas Psychiatric/Neurological: anxiety; No seizure, No focal weakness, No syncope Hematologic: No bleeding abnormalities PBU-Ettdqm-Muuyji Hx Patient Social History 2nd Hand Smoke Exposure: Yes Past Medical History PMH As described under Assessment. Family Medical History Family Medical History: She reports her mother and father had CHF. Allergies and Home Medications Allergies Coded Allergies: No Known Drug Allergies (Verified , 12/17/20) Patient Home Medication List Acetaminophen (Acetaminophen) 500 Mg Tablet, 500 MG PO HS, (Reported) Entered as Reported by: DARWIN OLSEN on 12/10/20 1201 Last Action: Reviewed Apixaban (Eliquis) 5 Mg Tablet, 5 MG PO BID Prescribed by: GUSTAVO DUENAS on 04/05/22 150 Cetirizine HCl (Zyrtec) 10 Mg Tablet, 10 MG PO DAILY, (Reported) Entered as Reported by: DARWIN OLSEN on 12/10/201200 Last Action: Reviewed Diltiazem HCl (Diltiazem 24Hr ER) 240 Mg Cap.er.24h, 240 MG PO DAILY Prescribed by: GUSTAVO DUENAS on 04/05/22 150 Diphenhydramine HCl (Benadryl) 25 Mg Capsule, 25 MG PO HS, (Reported) Entered as Reported by: DARWIN OLSEN on 12/10/201200 Last Action: Reviewed Levothyroxine Sodium (Levothyroxine Sodium) 75 Mcg Tablet, 75 MCG PO DAILY, (Reported) Entered as Reported by: WILLARD OJEDA on 04/04/221545 Last Action: Reviewed Montelukast Sodium (Montelukast Sodium) 10 Mg Tablet, 10 MG PO DAILY, (Reported) Entered as Reported by: DARWIN OLSEN on 12/10/201200 Last Action: Reviewed Omeprazole (Omeprazole) 20 Mg Capsule., 20 MG PO DAILY, (Reported) Entered as Reported by: DARWIN OLSEN on 12/10/201200 Last Action: Reviewed Venlafaxine HCl (Venlafaxine HCl ER) 75 Mg Cap.er.24h, 75 MG PO Q48H, (Reported) Entered as Reported by: WILLARD OJEDA on 04/04/221545 Last Action: Reviewed Discontinued Medications Aspirin (Aspirin EC) 81 Mg Tablet.dr, 81 MG PO DAILY, (Reported) Entered as Reported by: WILLARD OJEDA on 04/04/221545 Last Action: Reviewed Diclofenac Sodium (Diclofenac Sodium) 75 Mg Tablet.dr, 75 MG PO BID, (Reported) Discontinued Reason: No Longer Taking Entered as Reported by: DARWIN OLSEN on 12/10/201200 Last Action: Discontinued Levothyroxine Sodium (Levothyroxine) 75 Mcg Capsule, 75 MCG PO DAILY, (Reported) Discontinued Reason: Duplicate Order Entered as Reported by: DARWIN OLSEN on 12/10/201200 Last Action: Discontinued Menthol (Biofreeze) 118 Ml Gel..ml., 118 ML TP PRN, (Reported) Discontinued Reason: No Longer Taking Entered as Reported by: DARWIN OLSEN on 12/10/20 1201 Last Action: Discontinued Triamcinolone Acetonide (Nasacort) 10.8 Ml [place], 10.8 ML NS DAILY, (Reported) Discontinued Reason: No Longer Taking Entered as Reported by: DARWIN OLSEN on 12/10/20 1201 Last Action: Discontinued Physical Exam-Cardiology Physical Exam Vital Signs/I&O Capillary Refill : Constitutional: AAO x 3, well-developed, well-nourished HEENT: PERRL, hearing is well preserved Neck: No carotid bruit; carotid pulses are 2 + bilaterally Respiratory: accessory muscle use, respiratory distress, chest expansion is symmetric, chest is bilaterally symmetric, lungs clear to auscultation Cardiovascular: regular rate-rhythm; No JVD; S1 and S2 Gastrointestinal: No tender; soft, round, audible bowel sounds Extremities: no lower extremity edema bilateral Neurologic/Psychiatric: grossly intact (moves all extremities) Skin: No rash on exposed areas, No ulcerations on exposed areas Data Review Labs ECG Impression ECG Initial ECG Impression: Atrial Fibrillation w/RVR A/P-Cardiology Assessment/Admission Diagnosis Newly dx a-fib with RVR per ECG of 04-04-22 at [facility] in [place], [place] - converted to SR following Cardizem gtt (reports has had palpitations at home) MPI of Sep [address] [facility]: No evidence of significant myocardial ischemia or infarction on this study. Normal regional wall motion. Normal global left ventricular systolic function with a calculated ejection fraction at 70%. Rate- related left bundle branch block. Echocardiogram of Sep [address] [facility]: LVEF 55-65%. PASP 35-40 mmHg GERD H/o cholecystectomy Probable sleep apnea H/o vertigo Hyperthyroidism Discussion and Recomendations Newly dx a-fib with RVR - converted to SR on Cardizem gtt - change to oral and stop IV - start OAC with Eliquis for stroke prophylaxis - Echocardiogram - check TSH, CMP, Mag and CBC Advise out pt sleep studies Discussed plan of care with Dr. Duenas Further recs will be based on hospital course JENNIFER KITCHEN Apr 04, 2022 14:56
[2022-04-04 15:03] VITALS: BP 156/98
[2022-04-04] MEDS: NS IV 1000 ML 1,000 ML IV SCH ×2 (15:25→22:47)
[2022-04-04 15:29] LABS: FREE T4 (FREE THYROXINE) 1.2 NG/DL (0.70-1.48)
[2022-04-04] MEDS ORDERED: ASPI-1238 PO (15:46)
[2022-04-04] MEDS ORDERED: VENL75CA93 PO (15:46)
[2022-04-04] MEDS ORDERED: LEVO75TA6 PO (15:46)
[2022-04-04 16:00] VITALS: BP 139/75
--- NOTE | 2022-04-04 16:11 | Consultation-Cardiology ---
HPI-Cardiology Cardiology Consultation: Date of Consultation 04/04/22 Time Seen by a Provider: 15:30 Date of Admission Attending Physician Joyce Duenas DO Admitting Physician Admitting Physician: Joyce Duenas DO Attending Physician: Joyce Duenas DO Consulting Physician KERI HERNANDEZ MD, MA, FACP, FACC, FSCAI, CCDS Physician requesting consult: Dr Duenas HPI: Chief Complaint: Reason for Card consult: Newly dx a-fib with RVR Ms. Giron is a 67 yr old female admitted to ICU 11 from [place] ED with newly dx a-fib with RVR. She was given a Cardizem bolus and started on a Cardizem gtt. She has converted to SR. She reports she has had palpitations off and on for "quite awhile". She describes the palpitations as a "fluttering" in her chest that would last for no more than 1-2 minutes. She reports the episodes are infrequent. She denies any c/o CP, syncope or near syncope. She states this morning she began to have palpitations and they would not resolve. She states she had some lightheadedness. She then decided to come to the ED. No c/o LE swelling. No c/o n/v/d. No c/o fever or chills. Review of Systems-Cardiology Review of Systems Constitutional: No chills, No fever, No malaise Eyes: No vision change Ears/Nose/Throat: No epistaxis, No recent hearing loss Respiratory: As described under HPI Cardiovascular: As described under HPI Gastrointestinal: No constipation, No diarrhea, No nausea, No vomiting Genitourinary: No dysuria, No hematuria : No Musculoskeletal: no symptoms reported Skin: No rash on exposed areas, No ulcerations on exposed areas Psychiatric/Neurological: anxiety; No seizure, No focal weakness, No syncope Hematologic: No bleeding abnormalities LKE-Ufqygb-Yipimo Hx Patient Social History Marrital Status: Smoking Status: Never a Smoker 2nd Hand Smoke Exposure: Yes Have you traveled recently?: No Alcohol Use?: Yes Pt feels they are or have been: No Past Medical History PMH As described under Assessment. Family Medical History Family Medical History: She reports her mother and father had CHF. Allergies and Home Medications Allergies Coded Allergies: No Known Drug Allergies (Verified , 12/17/20) Patient Home Medication List Home Medication List Reviewed: Yes Acetaminophen (Acetaminophen) 500 Mg Tablet, 500 MG PO HS, (Reported) Entered as Reported by: DARWIN OLSEN on 12/10/201200 Last Action: Reviewed Aspirin (Aspirin EC) 81 Mg Tablet.dr, 81 MG PO DAILY, (Reported) Entered as Reported by: WILLARD OJEDA on 04/04/221545 Last Action: Reviewed Cetirizine HCl (Zyrtec) 10 Mg Tablet, 10 MG PO DAILY, (Reported) Entered as Reported by: DARWIN OLSEN on 12/10/201200 Last Action: Reviewed Diphenhydramine HCl (Benadryl) 25 Mg Capsule, 25 MG PO HS, (Reported) Entered as Reported by: DARWIN OLSEN on 12/10/201200 Last Action: Reviewed Levothyroxine Sodium (Levothyroxine Sodium) 75 Mcg Tablet, 75 MCG PO DAILY, (Reported) Entered as Reported by: WILLARD OJEDA on 04/04/221545 Last Action: Reviewed Montelukast Sodium (Montelukast Sodium) 10 Mg Tablet, 10 MG PO DAILY, (Reported) Entered as Reported by: DARWIN OLSEN on 12/10/201200 Last Action: Reviewed Omeprazole (Omeprazole) 20 Mg Capsule., 20 MG PO DAILY, (Reported) Entered as Reported by: DARWIN OLSEN on 12/10/201200 Last Action: Reviewed Venlafaxine HCl (Venlafaxine HCl ER) 75 Mg Cap.er.24h, 75 MG PO Q48H, (Reported) Entered as Reported by: WILLARD OJEDA on 04/04/221545 Last Action: Reviewed Discontinued Medications Diclofenac Sodium (Diclofenac Sodium) 75 Mg Tablet., 75 MG PO BID, (Reported) Discontinued Reason: No Longer Taking Entered as Reported by: DARWIN OLSEN on 12/10/201200 Last Action: Discontinued Levothyroxine Sodium (Levothyroxine) 75 Mcg Capsule, 75 MCG PO DAILY, (Reported) Discontinued Reason: Duplicate Order Entered as Reported by: DARWIN OLSEN on 12/10/201200 Last Action: Discontinued Menthol (Biofreeze) 118 Ml Gel..ml., 118 ML TP PRN, (Reported) Discontinued Reason: No Longer Taking Entered as Reported by: DARWIN OLSEN on 12/10/20 1201 Last Action: Discontinued Triamcinolone Acetonide (Nasacort) 10.8 Ml [place], 10.8 ML NS DAILY, (Reported) Discontinued Reason: No Longer Taking Entered as Reported by: DARWIN OLSEN on 12/10/20 1201 Last Action: Discontinued Physical Exam-Cardiology Physical Exam Vital Signs/I&O 04/04/22 04/04/22 14:53 15:03 Temp 36.4 Pulse 65 Resp 18 B/P (MAP) 156/98 (117) Pulse Ox 93 O2 Delivery Room Air Room Air Capillary Refill : Constitutional: AAO x 3, well-developed, well-nourished HEENT: PERRL, hearing is well preserved Neck: No carotid bruit; carotid pulses are 2 + bilaterally Respiratory: accessory muscle use, respiratory distress, chest expansion is symmetric, chest is bilaterally symmetric, lungs clear to auscultation Cardiovascular: regular rate-rhythm; No JVD; S1 and S2 Gastrointestinal: No tender; soft, round, audible bowel sounds Extremities: no lower extremity edema bilateral Neurologic/Psychiatric: grossly intact (moves all extremities) Skin: No rash on exposed areas, No ulcerations on exposed areas Data Review Labs Laboratory Tests 04/04/22 14:47: Thyroid Stimulating Hormone (TSH) 1.99, Free Thyroxine 1.20 A/P-Cardiology Assessment/Admission Diagnosis Newly dx a-fib with RVR per ECG of 04-04-[address] [facility] in [place], [place] - converted to SR following Cardizem gtt MPI of Sep 2019 at [facility]: No evidence of significant myocardial ischemia or infarction on this study. Normal regional wall motion. Normal global left ventricular systolic function with a calculated ejection fraction at 70%. Rate-related left bundle branch block. Echocardiogram of Sep 2019 at [facility]: LVEF 55-65%. PASP 35-40 mmHg GERD H/o cholecystectomy Probable sleep apnea H/o vertigo Hyperthyroidism Discussion and Recomendations Newly dx a-fib with RVR - converted to SR on Cardizem gtt - change to oral and stop IV - start OAC with Eliquis for stroke prophylaxis - Echocardiogram - check TSH, CMP, Mag and CBC Advise out pt sleep studies I discussed her case wit Dr. Duenas on the phone Further recs will be based on hospital course KERI HERNANDEZ MD FACP FAC CCDS Apr 04, 2022 16:11
--- NOTE | 2022-04-04 16:45 | Tele-ICU Progress Note ---
Progress Note Video assessment done , Hemodynamically stable Available charting reviewed, discussed with RN NO TELE-ICU CONSULT REQUESTED CONTINUE TO MONITOR PER USUAL TELE-ICU PROTOCOL No need for Tele-ICU interventions Plans as delineated by bedside physicians / consultants Focused Exam Height, Weight, BMI Height: '" Weight: lbs. oz. kg; 25.82 BMI Method: CONOR TORRES MD Apr 04, 2022 16:45
[2022-04-04 17:00] VITALS: BP 152/80
[2022-04-04 18:00] VITALS: BP 122/74
[2022-04-04 20:00] VITALS: BP 129/68
[2022-04-04] MEDS: APIXABAN 5 MG (ELIQUIS) TABLET PO SCH (20:35)
[2022-04-04] MEDS ORDERED: diphenhydrAMINE 25 MG TAB (BENADRYL) PO ONE (22:45)
[2022-04-05] VITALS: BP 135/85
[2022-04-05 04:00] VITALS: BP 125/57
[2022-04-05 04:52] LABS: HEMATOCRIT 37 % (35-52); HEMOGLOBIN 12.5 g/dL (11.5-16.0); MEAN CORPUSCULAR HEMOGLOBIN 31 pg (25-34); MEAN CORPUSCULAR HGB CONC 34 g/dL (32-36); MEAN CORPUSCULAR VOLUME 93 fL (80-99); PLATELET COUNT 269 10^3/uL (130-400); WHITE BLOOD COUNT 7.3 10^3/uL (4.3-11.0)
[2022-04-05 05:10] LABS: ALBUMIN 3.6 GM/DL (3.2-4.5)
[2022-04-05 05:12] LABS: CALCIUM 8.9 MG/DL (8.5-10.1)
[2022-04-05 05:15] LABS: BILIRUBIN,TOTAL 0.5 MG/DL (0.1-1.0)
[2022-04-05 05:16] LABS: CREATININE SERUM 0.71 MG/DL (0.60-1.30)
[2022-04-05] MEDS: NS IV 1000 ML 1,000 ML IV SCH ×2 (06:29→16:04)
[2022-04-05] MEDS ORDERED: PANTOPRAZOLE 40 MG (PROTONIX) TAB PO SCH (07:00)
[2022-04-05 07:58] VITALS: BP 132/62
[2022-04-05] MEDS: APIXABAN 5 MG (ELIQUIS) TABLET PO SCH (08:40)
[2022-04-05 11:59] VITALS: BP 137/65
--- NOTE | 2022-04-05 14:17 | Progress Note - Cardiology ---
Cardiology SOAP Progress Note Subjective: No shortness of breath No n/v/d No cp or palp or syncope No focal weakness Objective: I&O/Vital Signs 04/05/22 04/05/22 04/05/22 04/05/22 04:00 04:00 07:00 07:58 Temp 36.0 36.0 Pulse 51 61 58 Resp 28 17 B/P (MAP) 125/57 (79) 132/62 (85) Pulse Ox 90 93 O2 Delivery Room Air Room Air 04/05/22 04/05/22 04/05/22 08:00 11:59 12:25 Temp 36.2 Pulse 53 55 Resp 18 B/P (MAP) 137/65 (89) Pulse Ox 94 O2 Delivery Room Air Room Air 04/05/22 00:00 Intake Total 550 ml Balance 550 ml Constitutional: AAO x 3, well-developed, well-nourished Respiratory: accessory muscle use, respiratory distress, chest expansion is symmetric, chest is bilaterally symmetric, lungs clear to auscultation Cardiovascular: regular rate-rhythm; No JVD; S1 and S2 Gastrointestional: No tender; soft, round, audible bowel sounds Extremities: no lower extremity edema bilateral Neurologic/Psychiatric: grossly intact (moves all extremities) Skin: No rash on exposed areas, No ulcerations on exposed areas Results/Procedures: Labs Laboratory Tests 04/04/22 14:47: Thyroid Stimulating Hormone (TSH) 1.99, Free Thyroxine 1.20 04/04/22 18:05: Troponin I 0.048H 04/05/22 04:19: White Blood Count 7.3, Red Blood Count 3.98, Hemoglobin 12.5, Hematocrit 37, Mean Corpuscular Volume 93, Mean Corpuscular Hemoglobin 31, Mean Corpuscular Hemoglobin Concent 34, Red Cell Distribution Width 12.6, Platelet Count 269, Mean Platelet Volume 10.0, Sodium Level 141, Potassium Level 4.0, Chloride Level 109H, Carbon Dioxide Level 22, Anion Gap 10, Blood Urea Nitrogen 8, Creatinine 0.71, Estimat Glomerular Filtration Rate 93, BUN/Creatinine Ratio 11, Glucose Level 102, Calcium Level 8.9, Corrected Calcium 9.2, Total Bilirubin 0.5, Aspartate Amino Transf (AST/SGOT) 16, Alanine Aminotransferase (ALT/SGPT) 13, Alkaline Phosphatase 67, Total Protein 6.0L, Albumin 3.6 Laboratory Tests 04/05/22 04:19 A/P: Assessment: Newly dx a-fib with RVR per ECG of 04-04-22 at [facility] in [place], [place] - converted to SR following Cardizem gtt - TSH normal on 04/04/22 (1.99) - minimal troponin elevation: likely type 2 ME due to AF w/ RVR - Echo on 04/04/22: LVEF 60-65%, no RWMA, normal PASP MPI of Sep 2019 at [facility]: No evidence of significant myocardial ischemia or infarction on this study. Normal regional wall motion. Normal global left ventricular systolic function with a calculated ejection fraction at 70%. Rate- related left bundle branch block. GERD H/o cholecystectomy H/o ANISAH that she has not been treating H/o vertigo Plan: * Dilt for rate control * Apixaban for stroke prophylaxis * Sleep studies advised * Outpt Cardiology f/u advised KERI HERNANDEZ MD FACP FAC CCDS Apr 05, 2022 14:17
[2022-04-05] MEDS ORDERED: APIX5TAB PO (15:06)
[2022-04-05] MEDS ORDERED: DILT240C91 PO (15:06)
--- NOTE | 2022-04-05 15:15 | Discharge Summary ---
Diagnosis/Chief Complaint Date of Admission Apr 04, 2022 at 14:05 Date of Discharge Discharge Date: Apr 05, 2022 Discharge Diagnosis 1. New Onset Atrial Fibrillation with RVR--back to NSR 2. Hypothyroidism--stable 3. GERD--stable 4. History of Sleep Apnea--sleep study as outpatient 5. Anxiety--stable 6. Elevated Troponin-I from A Fib with RVR Reason Hospital Visit This is a 67 year old female who presented to the [facility] Emergency room with heart palpitations. She was found to be in atrial fibrillation with a heart rate in the 160s. She was given a bolus of IV cardizem and started on a drip of IV cardizem. Her troponin-I was mildy elevated but all other labs were normal. She converted back to a NSR on the cardizem drip. She admits to episodes of palpitations and occasional shortness of air. She felt a little light headed today but overall denies dizzines or dizzy episodes. She stated she had some chest tightness with the palpitations today but otherwise denies episodes of chest pain. She is currently in a NSR with no symptoms. She denies any alcohol use. She does have hypothyroidism and a previous history of sleep apnea. She states she did not tolerate wearing a CPAP and then further workup revealed that she did not need a CPAP. Discharge Summary Hospital Course Was the Problem List Reviewed?: Yes Hospital Course This is a 67 year old female who presented to the [facility] Emergency room with heart palpitations. She was found to be in atrial fibrillation with a heart rate in the 160s. She was given a bolus of IV cardizem and started on a drip of IV cardizem. Her troponin-I was mildy elevated but all other labs were normal. She converted back to a NSR on the cardizem drip. She admitted to rare episodes of palpitations and occasional shortness of air. She felt a little light headed on the day of admission but overall denied dizzines or dizzy episodes. She stated she had some chest tightness with the palpitations on the day of admission but otherwise denied episodes of chest pain. She was admittted the ICU in a NSR with no symptoms. She denied any alcohol use. She does have hypothyroidism and a previous history of sleep apnea. She states she did not tolerate wearing a CPAP and then further workup revealed that she did not need a CPAP. Her thyroid labs were within normal range. She was switched to oral cardizem and started on eliquis. A 2-D ECHO showed preserved ejection fraction. She had no further palpitations, chest discomfort or shortness of air. She remained in a NSR after admission. Cardiology agreed to discharge to home on oral cardizem and eliquis with outpatient sleep study and follow up. Labs Laboratory Tests 04/04/22 14:47: 04/04/22 18:05: Troponin I 0.048H 04/05/22 04:19: Chloride Level 109H, Total Protein 6.0L Procedures None. Discharge Physical Examination Allergies: Coded Allergies: No Known Drug Allergies (Verified , 12/17/20) Vitals & I&Os Vital Signs Date Time Temp Pulse Resp B/P (MAP) Pulse Ox O2 Delivery O2 Flow Rate FiO2 04/05/22 12:25 55 04/05/22 11:59 36.2 18 137/65 (89) 94 Room Air General Appearance: Alert, Oriented X3, No Acute Distress Respiratory: Clear to Auscultation Cardiovascular: Regular Rate Abdominal: Normal Bowel Sounds, Soft, No Tenderness Psych/Mental Status: Mental Status NL, Mood NL Discharge Home Medications Reviewed and agree with Discharge Medication list on patient's Discharge Instruction sheet Instructions to Patient/Family Please see electronic discharge instructions given to patient. GUSTAVO BISHOP DO Apr 05, 2022 15:15
[2022-04-05 16:10] VITALS: BP 137/65
== END 2022-04-05 16:24 | disposition home or self-care (01) | DRG 282 ==
LOC: ICU 14:05
PROVIDERS: ADMIT Family Medicine; ATTEND Family Medicine
DX: I48.91 Unspecified atrial fibrillation (principal); I21.A1 Myocardial infarction type 2; E03.9 Hypothyroidism, unspecified; G47.30 Sleep apnea, unspecified; F41.9 Anxiety disorder, unspecified; K21.9 Gastro-esophageal reflux disease without esophagitis; Z79.82 Long term (current) use of aspirin
CPT/HCPCS: 36415; 80053; 84439; 84443; 84484; 85027; 93306

== ENCOUNTER 2022-04-29 10:58 | Day surgery (SDC) | payer MEDICARE, OTHER ==
[2022-04-29] VITALS (13 sets, daily range): BP systolic 91–153; BP diastolic 54–98
[~2022-04-29] VITALS: Ht 170.2 cm; Wt 74.8 kg
[~2022-04-29 10:58] MED LIST changes: +APIX5TAB PO; +ASPI-1238 PO; +DILT240C91 PO; +LEVO75TA6 PO; +VENL75CA93 PO
[2022-04-29] MEDS ORDERED: HEParin (CATH LAB) 2,000 ML IV ONE (11:09)
[2022-04-29] MEDS ORDERED: LIDOCAINE 1% INJ 20 ML VIAL ONE (11:09)
[2022-04-29] MEDS ORDERED: NS IV 1000 ML 1,000 ML ONE (11:09)
[2022-04-29] MEDS ORDERED: NS IV 1000 ML 1,000 ML IV SCH ×3 (11:15→15:15)
[2022-04-29 11:31] LABS: HEMATOCRIT 41 % (35-52); HEMOGLOBIN 14.5 g/dL (11.5-16.0); MEAN CORPUSCULAR HEMOGLOBIN 32 pg (25-34); MEAN CORPUSCULAR HGB CONC 35 g/dL (32-36); MEAN CORPUSCULAR VOLUME 91 fL (80-99); MEAN PLATELET VOLUME 9.6 fL (9.0-12.2); PLATELET COUNT 341 10^3/uL (130-400); WHITE BLOOD COUNT 9.8 10^3/uL (4.3-11.0)
[2022-04-29 11:46] LABS: INR 0.9 (0.8-1.4)
[2022-04-29 11:54] LABS: ALBUMIN 4.4 GM/DL (3.2-4.5); BILIRUBIN,TOTAL 0.5 MG/DL (0.1-1.0); CALCIUM 9.9 MG/DL (8.5-10.1); CREATININE SERUM 0.98 MG/DL (0.60-1.30); POTASSIUM 3.2 MMOL/L (3.6-5.0); TOTAL PROTEIN 7.2 GM/DL (6.4-8.2)
[2022-04-29] MEDS ORDERED: CETI10CA PO (11:57)
[2022-04-29] MEDS ORDERED: APIX5TAB PO (11:57)
[2022-04-29] MEDS ORDERED: RIVA20TA PO (11:57)
[2022-04-29] MEDS ORDERED: PRD20T PO (11:58)
[2022-04-29] MEDS ORDERED: fentaNYL INJ 100 MCG/2 ML AMP ONE (13:47)
[2022-04-29] MEDS ORDERED: HEParin 1000 UNIT/ML (10ML VIAL) FOR BOLUS ONE (13:47)
[2022-04-29] MEDS ORDERED: VERAPAMIL 5 MG/2 ML (CALAN) VIAL IV ONE (13:47)
[2022-04-29] MEDS ORDERED: MIDAZOLAM 5 MG/5 ML (VERSED) VIAL ONE (13:47)
[2022-04-29] MEDS ORDERED: NITRO DRIP 25000 MCG/D5W 250 ML IV ONE (13:48)
[2022-04-29] MEDS ORDERED: ONDANSETRON 4 MG/2 ML (SDV) Z0FRAN ONE (14:15)
[2022-04-29] MEDS ORDERED: diphenhydrAMINE 50 MG/ML INJ (BENADRYL) ONE (14:19)
--- NOTE | 2022-04-29 14:59 | Cardiac Procedure Note-CS/ASA ---
Pre-Procedure Note Pre-Op Procedure Note Date of Available H&P: Apr 25, 2022 Date H&P Reviewed: Apr 29, 2022 Time H&P Reviewed: 13:30 History & Physical: H&P Reviewed, No changes noted Conscious Sedation Pre-Proced ASA Score 2 For ASA 3 and 4: Consider anesthesia and medical clearance. Also, for patients with a history of failed moderate sedation consider anesthesia. Airway Lungs Heart ASA score ASA 1: a normal healthy patient ASA 2: a patient with a mild systemic disease (mid diabetes, controlled hypertension, obesity ASA 3: a patient with a severe systemic disease that limits activity (angina, COPD, prior Myocardial infarction) ASA 4: a patient with an incapacitating disease that is a constant threat to life (CHF, renal failure) ASA 5: a moribund patient not expected to survive 24 hrs. (ruptured aneurysm) ASA 6: a declared brain- patient whose organs are being harvested. For emergent operations, add the letter E after the classification Mallampati Classification Grade 3 Sedation Plan Analgesia, Amnesia, Plan communicated to team members The patient is an appropriate candidate to undergo the planned procedure, sedation, and anesthesia. The patient immediately re-assessed prior to indication. KERI HERNANDEZ MD FACP FAC CCDS Apr 29, 2022 14:59
--- NOTE | 2022-04-29 15:04 | Cardiac Cath Report ---
CARDIAC CATHETERIZATION DATE OF PROCEDURE: INDICATION: Chest pain and shortness of breath with exertion (new onset) PROCEDURES PERFORMED: 1. LHC and cor angio PROCEDURE DESCRIPTION: After informed consent and in the fasting state, left heart catheterization was performed through the R radial artery utilizing a 6 Malagasy system by percutaneous approach. TIG cath for bilat coronary angio and LHC HEMODYNAMICS: LVEDP 6 mmHg, no pressure gradient cross the aortic valve CORONARY ANGIOGRAPHY: Left main coronary artery: No significant CAD Left anterior descending coronary artery: No significant CAD Left circumflex coronary artery: No significant CAD Right coronary artery: Dominant. No significant CAD LV angiogram: not done IMPRESSION: 1. No significant CAD 2. Normal LVEDP KERI HERNANDEZ MD FACP FACC CCDS Apr 29, 2022 15:03
--- NOTE | 2022-04-29 15:09 | Discharge Inst-Cardiology ---
Discharge Inst-Cardiac Discharge Medications Continued Medications: Acetaminophen (Acetaminophen) 500 Mg Tablet 500 MG PO HS, TAB Apixaban (Eliquis) 5 Mg Tablet 5 MG PO BID for 30 Days, #60 TAB complete current script, once out stop and start xarelto Cetirizine HCl (Zyrtec) 10 Mg Tablet 10 MG PO DAILY, TAB Cetirizine HCl (Zyrtec) 10 Mg Capsule 10 MG PO DAILY, CAP Diltiazem HCl (Diltiazem 24Hr ER) 240 Mg Cap.er.24h 240 MG PO DAILY, #30 CAP Diphenhydramine HCl (Benadryl) 25 Mg Capsule 25 MG PO HS, CAP Levothyroxine Sodium (Levothyroxine Sodium) 75 Mcg Tablet 75 MCG PO DAILY, TAB Montelukast Sodium (Montelukast Sodium) 10 Mg Tablet 10 MG PO DAILY, TAB Omeprazole (Omeprazole) 20 Mg Capsule.dr 20 MG PO DAILY, CAP Prednisone (Prednisone) 20 Mg Tab 40 MG PO DAILY, TAB one day left of script Rivaroxaban (Xarelto) 20 Mg Tablet 20 MG PO DAILY, TAB to start xarelto once current eliquis is out Venlafaxine HCl (Venlafaxine HCl ER) 75 Mg Cap.er.24h 75 MG PO Q48H, CAP Patient Instructions Patient Instructions: Start Xarelto (rivaroxaban) only after you have run out of Eliquis (apixaban) KERI HERNANDEZ MD [facility] CCDS Apr 29, 2022 15:09
--- NOTE | 2022-04-29 15:10 | Discharge Inst-Post CATH ---
Discharge Inst-CATH/EP Post Cardiac Cath/EP D/C Inst Follow Up/Plan F/u with Dr Casillas in 2 weeks Start Xarelto (rivaroxaban) only after you have run out of Eliquis (apixaban) ACTIVITY * Go Home directly and rest. * Limit activity of the leg (or wrist if it was used) for 7 days including aerobics, swimming, jogging, bicycling, etc. * Restrict stair-climbing for 7 days if possible, if not, climb up with your non-cath leg, then bring together on the same step. * Avoid lifting, pushing, pulling or excessive movement of the affected extremity for 7 days. * Customary sexual activity may be resumed after 2 days-use caution not to use a position that strains or causes pain to the affected extremity. * No driving for 24 hours. * NO SMOKING. * Avoid straining for bowel movements for 7 days. * Gentle walking on level ground is allowed. * Returning to work will depend on the type of procedure and the results. Your doctor will discuss this with you. CALL YOUR DOCTOR FOR ANY OF THE FOLLOWING: *If bleeding from the puncture site occurs- Apply gentle pressure to site with clean cloth and call your doctor or EMS. * If a knot or lump forms under the skin, increases in size, or causes pain. * If bruising appears to be worsening or moving further down your leg instead of disappearing. * Temperature above 101 F. CARE OF YOUR GROIN INCISION; * Bruising or purple discoloration of the skin near the puncture site is common. * You may shower only, no bathtub bathing for 5 days. Be careful to avoid slipping as your leg may feel stiff. * If a closure device was used on your femoral artery, please see the attached guide regarding care of the device and your leg. * Leave dressing on FOR 24 hours. CARE OF YOUR WRIST INCISION; * Bruising or purple discoloration of the skin near the puncture site is common. * You may shower. * DO NOT submerge wrist. * Leave dressing on FOR 24 hours. KERI CASILLAS MD [facility] CCDS Apr 29, 2022 15:10
[2022-04-29] MEDS ORDERED: PATIENT MAY USE OWN MEDS, ALL PO SCH (15:15)
[2022-04-29] MEDS ORDERED: KCL 20 MEQ TAB (K-DUR) PO NR (15:30)
[2022-04-29] MEDS ORDERED: morphine INJ 10 MG/ML 1ML (SYR OR VIAL) IVP STA (15:35)
[2022-04-29] MEDS ORDERED: morphine INJ 4 MG/ML 1 ML (VIAL/SYRINGE) IVP NR (16:00)
== END 2022-04-29 19:45 | disposition home or self-care (01) ==
LOC: CATH 10:58 → CSD 15:10 → CATH 19:45
PROVIDERS: ATTEND Internal Medicine Cardiovascular Disease
DX: I20.8 Other forms of angina pectoris (principal); R42 Dizziness and giddiness; I48.0 Paroxysmal atrial fibrillation; R21 Rash and other nonspecific skin eruption; K21.9 Gastro-esophageal reflux disease without esophagitis; G47.33 Obstructive sleep apnea (adult) (pediatric); Z79.01 Long term (current) use of anticoagulants; Z79.899 Other long term (current) drug therapy; Z90.49 Acquired absence of other specified parts of digestive tract
CPT/HCPCS: 80053; 80061; 85027; 85610; 85730; 87081; 93005; 93458; C1769; C1894; 36415

== ENCOUNTER → 2022-06-30 | Outpatient (CLI) | payer MEDICARE, OTHER ==
[~2022-06-30] MED LIST changes: +CETI10CA PO; +PRD20T PO; +RIVA20TA PO
--- NOTE | 2022-06-30 19:55 | Diagnostic Imaging Report ---
INDICATION: Bilateral digital screening 3-D mammography. COMPARISONS: 05/30/2020 and 05/31/2021 High breast parenchymal density persists bilaterally. Biopsy findings are again noted with benign calcifications bilaterally. There is no evidence of new dominant mass or suspicious clustered microcalcification. IMPRESSION: Category 2, benign findings. High breast parenchymal density limits mammographic sensitivity. Continued physical examination and annual mammographic follow-up are recommended. ACR BI-RADS Category 2: Benign findings. Result letter will be mailed to the patient. Note: At least 10% of breast cancer is not imaged by mammography. Dictated by: Dictated on workstation # [id number]
== END ==
LOC: RAD 13:56
PROVIDERS: ATTEND Family Medicine
DX: Z12.31 Encounter for screening mammogram for malignant neoplasm of breast (principal)
CPT/HCPCS: 77063; 77067

== ENCOUNTER 2022-09-02 13:58 | Day surgery (SDC) | payer MEDICARE, OTHER ==
[~2022-09-02] VITALS: Ht 170.2 cm; Wt 79.2 kg
[2022-09-02] MEDS ORDERED: LIDOCAINE 1% INJ 20 ML VIAL ONE (14:08)
--- NOTE | 2022-09-02 22:48 | OPERATIVE REPORT ---
DATE OF SERVICE: 09/02/2022 PREOPERATIVE DIAGNOSIS: Paroxysmal atrial fibrillation. POSTOPERATIVE DIAGNOSIS: Paroxysmal atrial fibrillation. PROCEDURE: Implantable loop recorder implantation. INDICATIONS: The patient is a 67-year-old lady who has palpitations and paroxysmal atrial fibrillation. 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 The patient has provided informed consent. The procedure was carried out today. DESCRIPTION OF PROCEDURE: [facility] The left prepectoral area was prepared and draped in the usual sterile fashion. A 1% lidocaine was used for local anesthesia. The tools provided with the [employer]onic LINQ II Device were used to make a subcutaneous pocket anterior to the fourth intercostal space into which the device was placed and the wound edges were closed using Steri-Strips and Dermabond. She tolerated the procedure well. The serial number of the device is [id number]. Job ID: [id number] DocumentID: [id number] Dictated Date: 09/02/2022 15:38:04 [employer] Date: 09/02/2022 22:46:00 Dictated By: KERI HERNANDEZ MD; MA; FACP; FACC; DESIRAE
== END 2022-09-02 15:56 ==
LOC: CATH 13:58
PROVIDERS: ATTEND Internal Medicine Cardiovascular Disease
DX: I48.0 Paroxysmal atrial fibrillation (principal); R07.9 Chest pain, unspecified; K21.9 Gastro-esophageal reflux disease without esophagitis; G47.33 Obstructive sleep apnea (adult) (pediatric); R21 Rash and other nonspecific skin eruption; T46.1X5A Adverse effect of calcium-channel blockers, initial encounter; Z99.81 Dependence on supplemental oxygen; Z90.49 Acquired absence of other specified parts of digestive tract; Z79.01 Long term (current) use of anticoagulants
CPT/HCPCS: 33285; C1764